=== PATIENT | female | born 1965 | race Caucasian/White ===

== ENCOUNTER 2018-06-19 19:03 | Emergency (ER) | payer BC, SELFPAY ==
[2018-06-19 19:04] VITALS: BP 176/102; PULSE 91; RESP 16; TEMP 36.9; O2SAT 98; BMI 32.8
--- NOTE | 2018-06-19 19:48 | ED.VIS.GEN ---
History of Present Illness Chief Complaint: Headache Informant: Patient Onset: Days - 3 Context: Gradual Onset Timing: Continuous Quality: throbbing Location: left frontal/retroorbital Current Severity: Severe Maximum Severity: Severe Worsened by: light and sound Relieved by: nothing - earlier tried ibuprofen, phenergan, and benadryl po Associated Symptoms: n/v, occ blurry vision Narrative: History of migraines that occur randomly, no obvious trigger for this 1. Same symptoms as other prior migraines, and similar severity that she has had in the past but not able to get this 1 to improve. Insurance stopped covering Imitrex, so she does not have that, when she took it it worked 75% of the time approximately. No recent head injury. Prior similar symptoms: Yes Recent Illness/Hospitalization: No - Past Medical History (1) Migraines Status: Chronic Past Medical History - Allergies and Home Meds Allergies/Adverse Reactions: Allergies bupropion [From Wellbutrin] Allergy (Verified 06/19/18 19:04) I LOSE MY HEARING AND SMELL Tetanus Vaccines and Toxoid [Tetanus Vaccines & Toxoid] Adverse Reaction (Verified 06/19/18 19:04) Vomiting Primary Care Physician: Simone Posey MD [Primary Care Provider] - Surgical History: cholecystectomy, herniorrhaphy, - - spinal surgery for scoliosis, , ovarian cyst removal, repair of hip labrum Lives: Spouse/ Significant Other Smoking Status: Never smoker - Family History Maternal Family History: Reports: Hypertension Paternal Family History: Reports: Heart Disease Review of Systems General: Reports: Malaise. Denies: Chills, Fever, Sweats Eyes: Reports: Blurred Vision - bilaterally. Denies: Diplopia ENT: Denies: Bilateral ear pain, Rhinorrhea, Sore throat Cardiovascular: Denies: Chest pain, Palpitations Respiratory: Denies: Dyspnea, Cough, Dyspnea on exertion Gastrointestinal: Reports: Nausea, Vomiting. Denies: Abdominal pain, Diarrhea, Melena, Hematochezia Genitourinary: Denies: Dysuria, Hematuria, Frequency Musculoskeletal: Reports: Swelling - bilat ankle swelling since hip surg 2 mos ago. Denies: Back pain Skin: Denies: Rash, Wounds Neurological: Reports: Headache. Denies: Weakness, Parasthesia, Numbness Physical Exam Vital Signs/Narrative: Vital Signs Temp Pulse Resp BP Pulse Ox 06/19/18 19:04 98.4 F 91 16 176/102 H 98 Inital Vital Signs reviewed: Yes General: Well nourished, Well developed, - - room dark. pt soft-spoken, nad. Head: Normocephalic, Atraumatic Eyes: Perrl, EOMI, - - photophobic ENT: Moist mucous membranes, No rhinorrhea Neck: Supple, Nontender Cardiovascular: Regular rate, Regular rhythm, No murmurs Back: Nontender, Normal Inspection Extremities: Nontender, No edema Skin: Normal color, No rash Neurological: Alert, Oriented x3, Cranial nerves II-XII grossly intact, Normal Strength, Normal Sensation Psychological: Normal affect Diagnostic/Tx/Re-eval - Medical Decision Making Initially treated with Reglan, Toradol, Benadryl, IV fluids. She felt better, down to 4/10, requesting more medication. Recheck her blood pressure, it is 130. Gave her dihydroergotamine 1 mg, I think her headache has been there for too long to try Imitrex. After that, she feels much better/it is almost resolved. She is comfortable going home. ED Disposition - Plan for ED Patient: Disposition: Home or Assisted Living Chief Complaint: Headache Diagnosis: Migraine headache Instructions: ED Headache Migraine Referrals: Simone Posey MD [Primary Care Provider] - 1-2 Days if not improving
[2018-06-19] MEDS: DiphenhydrAMINE 50 MG/ML Syringe 12.5 MG IV (19:59)
[2018-06-19] MEDS: Ketorolac 30 MG/ML Syringe IV (19:59)
[2018-06-19] MEDS: Metoclopramide 10 MG/2 ML Vial IV (19:59)
[2018-06-19] MEDS: 0.9% Normal Saline 1,000 ML 999 ML IV (19:59)
[2018-06-19 21:03] VITALS: BP 135/78; PULSE 80; RESP 14; O2SAT 98
[2018-06-19] MEDS: Dihydroergotamine 1 MG/ML Ampul IV (21:30)
[2018-06-19 22:34] VITALS: BP 131/71; PULSE 74; RESP 16; O2SAT 98
--- OUTSIDE RECORDS SUMMARY | 2018-08-24 17:07 | XMS RPT_ITS ---
:1965 Author Organization [employer] Address [address] [place] [address] Phone Care Team Providers Name Role Phone Abena BAEZ, Bernabe Guerrero Unavailable Reason for Visit Reason For Visit Description Start Date Postop - 1st visit Preliminary reason for visit data, not yet signed by the author as of right hip post Right hip scope revision on 04/08/2018 Preliminary reason for visit data, not yet signed by the author as of Chief Complaint Chief Complaint Description Start Date right hip post Right hip scope revision on 04/08/2018 Preliminary chief complaint data, not yet signed by the author as of Instructions Instruction Description Start Date CompletedPatient advised to follow-up with Primary Care Physician for BMI management. Plan of Care Type Date Detail Appointment 02:00 PM Bernabe Kraft MD, [address], [place], [address], Appointment 11:15 AM Smita Mendoza PT, [address] [place] [address] [address], [place], [address], Medications Medication Instructions Start Stop Generic Name NDC Provider Date Date ASPIRIN 325 MG 1 tablet daily / ASPIRIN 22034369880 Bernabe R TABS 16 Abena BAEZ PERCOCET 5-325 1-2 tablets as / OXYCODONE-ACET 18710709666 Bernabe R MG TABS needed for pain 16 AMINOPHEN Abena BAEZ NAPROSYN 500 MG Take 1 tabket / NAPROXEN 86908033346 [place] A TABS a day with food 06 Yu PAC TRAZODONE HCL Patient unsure / TRAZODONE HCL 84185421138 Jonna Wheeler TABS of dose. 1 07 TABS FELT CEMENTER-DIRECTOR DIGITAL SALES tablet at bedtime VENLAFAXINE HCL one a day / VENLAFAXINE 34009575192 Bernabe R ER 150 MG 08 HCL Abena BAEZ [id number] OMEPRAZOLE CPDR one a day / OMEPRAZOLE 40040425484 Bernabe R 08 CPDR Abena BAEZ CITRACAL PLUS four tabs a day / MULTIPLE 27894893121 Bernabe R TABS 08 MINERALS-VITAM Abena BAEZ INS TRIAMTERENE-HCT 1 capsule daily / TRIAMTERENE-HC 77585461245 Mara Moya 37.5-25 MG 08 TZ Fouse CAPS PROAIR HFA 108 as needed / ALBUTEROL 65882726728 Mara Zabala (90 Base) 08 SULFATE Fouse MCG/ACT AERS LISINOPRIL 10 1 tablet daily / LISINOPRIL 63653133259 Mara Zabala MG TABS 08 Fouse Conditions or Problems Problem Name Problem Onset Status Entry Provider Comment Standard Annotate Code Date Date Description Tear of right 882246401 Active Bernabe Guerrero Tendon gluteus minimus (SNOMED 03/03 03/03 Laskovski rupture - tendon, CT) hip subsequent encounter 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 Vital Signs Date Name Value Unit Description BMI (Body Mass 34.18 kg/m2 Body Mass Index Index) [Ratio] Preliminary vital sign data, not yet signed by the author as of BP Diastolic 72 mm[Hg] blood pressure, diastolic Preliminary vital sign data, not yet signed by the author as of BP Systolic 128 mm[Hg] blood pressure, systolic Preliminary vital sign data, not yet signed by the author as of Heart Rate 97 /min pulse rate E&M Preliminary vital sign data, not yet signed by the author as of Height 68 [in_us] height E&M Preliminary vital sign data, not yet signed by the author as of Height 173 cm height in centimeters E&M Preliminary vital sign data, not yet signed by the author as of Weight Measured 224 [lb_av] weight E&M Preliminary vital sign data, not yet signed by the author as of Weight Measured 102 kg weight in kilograms E&M Preliminary vital sign data, not yet signed by the author as of Results Date Name Value Unit Range Flag Description Office Visit: Postop - 1st visit, Rm: 6 MEDS REVIEW Done Documentation of current medications (procedure) Preliminary observation data, not yet signed by the author as of Preliminary observation data, not yet signed by the author as of Clinical Summary: HMSPatientID P account number Procedures Code Procedure Name Date Entry Date CPT-89996 Physical Therapy G8730 Pain assessment documented as positive - follow-up documented G8427 Current medications documented 1036F Tobacco screening was negative - non user G8417 BMI documented as above normal parameters - follow-up documented G8783 Blood pressure within normal parameters - no follow-up required [facility]-[id number] Patient Encounter Medications Administered No information available. Immunizations No information available. Advance Directives There may be information available, but it has not been provided by the sender. Assessments There may be information available, but it has not been provided by the sender. Review of Systems There may be information available, but it has not been provided by the sender. Family History There may be information available, but it has not been provided by the sender. History of Past Illness There may be information available, but it has not been provided by the sender. History of Present Illness There may be information available, but it has not been provided by the sender.
--- OUTSIDE RECORDS SUMMARY | 2018-08-24 17:07 | XMS RPT_ITS ---
:1965 Author Organization [employer] Address [address] [place] [address] Phone Care Team Providers Name Role Phone Modesto Ribera Unavailable Reason for Visit Reason For Visit Description Start Date Follow-up by complaint Preliminary reason for visit data, not yet signed by the author as of right hip pain Preliminary reason for visit data, not yet signed by the author as of Chief Complaint Chief Complaint Description Start Date right hip pain Preliminary chief complaint data, not yet signed by the author as of Instructions Instruction Description Start Date Completed Plan of Care Type Date Detail Appointment 02:40 PM Modesto BOB, [address], [address], [place], [address], Appointment 04:15 PM Rebecca Jordan PT, [address], [place], [address], Appointment 04:00 PM Ashley Lopez PT, [address], [place], [address], Appointment 04:00 PM Ashley Lopez PT, [address], [place], [address], Appointment 04:15 PM Rebecca Jordan PT, [address], [place], [address], Appointment 04:15 PM Rebecca Jordan PT, [address], [place], [address], Appointment 12:00 PM Rebecca Jordan PT, [address] [place], [address], Appointment 04:15 PM Rebecca Jordan PT, [address] [place], [address], Pending order MRI right hip with and without contrast Medications Medication Instructions Start Stop Generic Name NDC Provider Date Date MEDROL 4 MG as directed METHYLPREDNISOLONE [id number] Modesto A TBPK [facility] TRAZODONE HCL Patient unsure TRAZODONE HCL TABS 16029744596 Jonna Rizo TABS of dose. Lang tablet at [facility] bedtime VENLAFAXINE one a day VENLAFAXINE HCL 57080142606 Bernabe Guerrero HCL ER 150 MG / Abena [id number]-DID OMEPRAZOLE one a day OMEPRAZOLE CPDR 80919299406 Bernabe Guerrero CPDR / Abena BAEZ CITRACAL PLUS four tabs a MULTIPLE 84054640749 Bernabe Guerrero TABS MINERALS-VITAMINS Abena BAEZ TRIAMTERENE-HC 1 capsule TRIAMTERENE-HCTZ 04409434154 Mara Zabala TZ 37.5-25 MG daily /08 Fouse CAPS PROAIR HFA 108 as needed ALBUTEROL SULFATE 92786960973 Mara Zabala (90 Base) / Fouse MCG/ACT AERS LISINOPRIL 10 1 tablet daily LISINOPRIL 23032887035 Mara Zabala MG TABS Fouse Conditions or Problems Problem Name Problem Onset Status Entry Provider Comment Standard Annotate Code Date Date Description Tear of right 974212048 Active Bernabe Guerrero Tendon gluteus minimus (SNOMED 03/03 03/03 Abena rupture - tendon, CT) hip subsequent encounter 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 Vital Signs Date Name Value Unit Description BMI (Body Mass 34.18 kg/m2 Body Mass Index Index) [Ratio] Preliminary vital sign data, not yet signed by the author as of BP Diastolic 78 mm[Hg] blood pressure, diastolic Preliminary vital sign data, not yet signed by the author as of BP Systolic 119 mm[Hg] blood pressure, systolic Preliminary vital sign data, not yet signed by the author as of Heart Rate 86 /min pulse rate E&M Preliminary vital sign [...] Value Unit Range Flag Description Office Visit: Follow-up by valeria, Rm: 1 MEDS REVIEW Done Documentation of current medications (procedure) Preliminary observation data, not yet signed by the author as of XRAY HX of the right hip xray history on 12/08/2017 at [facility] Preliminary observation data, not yet signed by the author as of Preliminary observation data, not yet signed by the author as of Clinical Summary: HMSPatientID [facility] account number Clinical Summary: HMSPatientID PTOPACCTNUMB [id number] GPT Physical Therapy Outpatient Account Number Procedures Code Procedure Name Date Entry Date G8730 Pain assessment documented as positive - follow-up documented G8427 Current medications documented 1036F Tobacco screening was negative - non user G8419 BMI outside of normal parameters - no follow-up plan/reason not given G8783 Blood pressure within normal parameters - no follow-up required [facility]-[id number] Patient Encounter Medications Administered No information available. [...]
--- OUTSIDE RECORDS SUMMARY | 2018-08-24 17:07 | XMS RPT_ITS ---
:1965 Author Organization [employer] Address [address] [place] [address] Phone Care Team Providers Name Role Phone Abena BAEZ, Bernabe Padilla Reason for Visit Reason For Visit Description Start Date Test Result Preliminary reason for visit data, not yet [...] Plan of Care Type Date Detail Appointment 09:20 AM Bernabe Kraft MD, [address], [address], [place], [address], Appointment 04:15 PM Rebecca Jordan PT, [address], [place], [address], Appointment 04:15 PM Rebecca Jordan PT, [address], [place], [address], Appointment 12:00 PM Rebecca Jordan PT, [address], [place], [address], Appointment 04:15 PM Rebecca Jordan PT, [address], [place], [address], Medications Medication Instructions Start Stop Generic Name [facility] Provider Date Date TRAZODONE HCL Patient unsure / TRAZODONE HCL [id number] Jonna Wheeler TABS of dose. 1 07 TABS FORESTRY AND WILDLIFE MANAGER-DOCUMENT IMAGING SPECIALIST tablet at bedtime VENLAFAXINE HCL one a day / VENLAFAXINE 05334420876 Bernabe R ER 150 MG 08 HCL Abena BAEZ [id number]-INL OMEPRAZOLE CPDR one a day / OMEPRAZOLE 34675147981 Bernabe R 08 CPDR Abena BAEZ CITRACAL PLUS four tabs a day / MULTIPLE 54964718488 Bernabe R TABS 08 MINERALS-VITAM Abena BAEZ INS TRIAMTERENE-HCT 1 capsule daily / TRIAMTERENE-HC 09239989550 Mara Moya 37.5-25 MG 08 TZ Fouse CAPS PROAIR HFA 108 as needed / ALBUTEROL 81559354229 Mara Zabala (90 Base) 08 SULFATE Fouse MCG/ACT AERS LISINOPRIL 10 1 tablet daily / LISINOPRIL 18172162977 Mara Zabala MG TABS 08 Fouse Conditions or Problems Problem Name Problem Onset Status Entry Provider Comment Standard Annotate Code Date Date Description Tear of right 229695247 Active Bernabe Guerrero Tendon gluteus minimus (SNOMED 03/03 03/03 Abena rupture - tendon, CT) hip subsequent encounter Femoroacetabular 365429644 Active Bernabe Guerrero Femoral impingement of (SNOMED 03/03 03/03 Abena acetabular right hip CT) impingement Labral tear of 582031208 Active Bernabe Guerrero Acetabular hip, degenerative (SNOMED 03/03 03/[address]) Allergies, Adverse Reactions, Alerts Allergy Name Reaction Start Date Severity Status Provider Description TETANUS TOXOID Severe Active Mara Zabala ADSORBED Fouse Social History No information available. Vital Signs Date Name Value Unit Description BMI (Body Mass 34.18 kg/m2 Body Mass Index Index) [Ratio] Preliminary vital sign data, not yet signed by the author as of BP Diastolic 81 mm[Hg] blood pressure, diastolic Preliminary vital sign data, not yet signed by the author as of BP Systolic 117 mm[Hg] blood pressure, systolic Preliminary vital sign data, not yet signed by the author as of Heart Rate 90 /min pulse rate E&M Preliminary vital sign [...] Value Unit Range Flag Description Office Visit: Test Result, Rm: 7 MEDS REVIEW Done Documentation of current medications (procedure) Preliminary observation data, not yet signed by the author as of Preliminary observation data, not yet signed by the author as of Clinical Summary: HMSPatientID GOP account number Procedures Code Procedure Name Date Entry Date [id number] [facility] CARE [place] COMBO - HIP (BREG) [id number] CRUTCHES - ADULT (DRIVE MEDICAL) E0118 MOBILEG ULTRA CRUTCHES (MOBILEGS) G8730 Pain assessment documented as positive - follow-up documented G8427 Current medications documented 1036F Tobacco screening was negative - non user G8417 BMI documented as above normal parameters - follow-up documented G8783 Blood pressure within normal parameters - no follow-up required [id number] Patient Encounter Medications Administered No information available. [...]
--- OUTSIDE RECORDS SUMMARY | 2018-08-24 17:07 | XMS RPT_ITS ---
:1965 Author Organization [employer] Address [address] [place] [address] Phone Care Team Providers Name Role Phone Modesto Ribera Reason for Visit Reason For Visit Description Start Date Postop - subsequent visit Preliminary reason for visit data, not [...] Plan of Care Type Date Detail Appointment 10:40 AM [place] BOB, [address] [address], [place], [address], Appointment 11:15 AM Smita Mendoza PT, [address] [place] [address] [place], [address], Appointment 09:45 AM Smita Mendoza PT, [address] [place] [address] [place], [address], Appointment 10:45 AM Smita Mendoza PT, [address] [place] [address] [place], [address], Appointment 10:30 AM Smita Mendoza PT, [address] [place] [address] [place], [address], Appointment 12:40 PM Modesto Rizo Yu BOB, [address] [facility], [address], [place], [address], Medications Medication Instructions Start Stop Generic Name ND Provider Date Date DOXYCYCLINE Take 1 caplet / DOXYCYCLINE 91641159972 Bernabe Guerrero HYCLATE 100 MG by mouth 2 11 HYCLATE Abena BAEZ CAPS times a day for 14 days ASPIRIN 325 MG 1 tablet daily / ASPIRIN 75392951053 Bernabe Guerrero TABS 16 Abena BAEZ PERCOCET 5-325 1-2 tablets as / OXYCODONE-ACET 56559181217 Bernabe R MG TABS needed for pain 16 AMINOPHEN Abena BAEZ TRAZODONE HCL Patient unsure / TRAZODONE HCL 86497301869 Jonna Wheeler TABS of dose. 1 07 TABS ESCROW ASSISTANT-COURT DEPUTY tablet at bedtime VENLAFAXINE HCL one a day / VENLAFAXINE 03241521881 Bernabe Guerrero ER 150 MG 08 HCL Abena BAEZ [id number] OMEPRAZOLE CPDR one a day / OMEPRAZOLE 73245837913 Bernabe R 08 CPDR Abena BAEZ CITRACAL PLUS four tabs a day / MULTIPLE 80009755164 Bernabe Guerrero TABS 08 MINERALS-VITAM Abena BAEZ INS TRIAMTERENE-HCT 1 capsule daily / TRIAMTERENE-HC 08883218616 Mara Zabala Z 37.5-25 MG 08 TZ Fouse CAPS PROAIR HFA 108 as needed / ALBUTEROL 96694074267 Mara Zabala (90 Base) 08 SULFATE Fouse MCG/ACT AERS LISINOPRIL 10 1 tablet daily / LISINOPRIL 40190397021 Mara Zabala MG TABS 08 Fouse Conditions or Problems Problem Name Problem Onset Status Entry Provider Comment Standard Annotate Code Date Date Description Trochanteric M70.62 Active [place] A Trochanteric bursitis left (ICD-10-CM 07/18 07/18 [facility] bursitis, hip ) left hip Tear of right 622378071 Active Bernabe R Tendon gluteus minimus (SNOMED 03/03 03/03 Laskovski rupture - hip tendon, CT) subsequent encounter Femoroacetabular 294265496 Active Bernabe R Femoral impingement of (SNOMED 03/03 03/03 Laskovski acetabular right hip CT) impingement Labral tear of 193927675 Active Bernabe R Acetabular hip, (SNOMED 03/03 03/03 Laskovski labrum tear degenerative CT) Allergies, Adverse Reactions, Alerts Allergy Name Reaction Start Date Severity Status Provider Description TETANUS TOXOID Severe Active Mara Griffith Social History No information available. Vital Signs Date Name Value Unit Description BMI (Body Mass 34.18 kg/m2 Body Mass Index Index) [Ratio] Preliminary vital sign data, not yet signed by the author as of BP Diastolic 87 mm[Hg] blood pressure, diastolic Preliminary vital sign data, not yet signed by the author as of BP Systolic 122 mm[Hg] blood pressure, systolic Preliminary vital sign data, not yet signed by the author as of Heart Rate 75 /min pulse rate E&M Preliminary vital sign [...] Range Flag Description Office Visit: Postop - subsequent visit, Rm: 10 MEDS REVIEW Done Documentation of current medications (procedure) Preliminary observation data, not yet signed by the author as of Preliminary observation data, not yet signed by the author as of Clinical Summary: HMSPatientID [facility] account number Procedures Code Procedure Name Date Entry Date CPT-54288 Physical Therapy G8730 Pain assessment documented as positive - follow-up documented G8427 Current medications documented 1036F Tobacco screening was negative - non user G8417 BMI documented as above normal parameters - follow-up documented G8783 Blood pressure within normal parameters - no follow-up required [facility]-[id number] Patient Encounter Medications Administered No information available. [...]
--- OUTSIDE RECORDS SUMMARY | 2018-08-24 17:07 | XMS RPT_ITS ---
:1965 Author Organization [email or web address] Address [address] [place] [address] Phone Care Team Providers Name Role Phone Jonna Stanley Reason for Visit Reason For Visit Description Start Date New/Est - 1st visit with physician Preliminary reason for visit data, not yet [...] Plan of Care Type Date Detail Appointment 10:00 AM Jonna HALEY, [address] , [address], [place], [address], Appointment 02:40 PM [place] BOB, [address] , [address], [place], [address], Pending order XR PELVIS W HIP 1 VIEW-RT Medications Medication Instructions Start Stop Generic Name NDC Provider Date Date PREDNISONE 20 Take 3 tablets / PREDNISONE [id number] Jonna Wheeler MG TABS by mouth daily 07 [employer]EDIT ADMINISTRATOR for 6 days, then 2 tablets daily for 3 days, then 1 tablet daily for 3 days TRAZODONE HCL Patient unsure / TRAZODONE HCL [id number] Jonna Wheeler TABS of dose. 1 07 TABS [employer] EXPERIENCE TEACHER-CREDIT ADMINISTRATOR tablet at bedtime VENLAFAXINE HCL one a day 2015/07/ VENLAFAXINE [id number] Bernabe R ER 150 MG 08 HCL Abena BAEZ TO20C-COI OMEPRAZOLE CPDR one a day / OMEPRAZOLE [id number] Bernabe R 08 CPDR Abena BAEZ CITRACAL PLUS four tabs a day / MULTIPLE [id number] Bernabe R TABS 08 MINERALS-VITAM Abena BAEZ INS TRIAMTERENE-HCT 1 capsule daily / TRIAMTERENE-HC [id number] Mara Zabala Z 37.5-25 MG 08 TZ Fouse CAPS PROAIR HFA 108 as needed / ALBUTEROL [id number] Mara Zabala (90 Base) 08 SULFATE Fouse MCG/ACT AERS LISINOPRIL 10 1 tablet daily / LISINOPRIL [id number] Mara Zabala MG TABS 08 Fouse Conditions or Problems Problem Name Problem Onset Status Entry Provider Comment Standard Annotate Code Date Date Description Tear of right 483844237 Active Bernabe R Tendon gluteus minimus (SNOMED 03/03 03/03 Abena rupture - tendon, CT) hip subsequent encounter Femoroacetabular 005834025 Active Bernabe Guerrero Femoral impingement of (SNOMED 03/03 03/03 [place] acetabular right hip CT) impingement Labral tear of 736247575 Active Bernabe Guerrero Acetabular hip, degenerative (SNOMED 03/03 03/[address] [facility] [address]) Allergies, Adverse Reactions, Alerts [...] by the author as of BP Systolic 120 mm[Hg] blood pressure, systolic Preliminary vital sign data, not yet signed by the author as of Heart Rate 84 /min pulse rate E&M Preliminary vital sign [...] Value Unit Range Flag Description Office Visit: New/Est - 1st visit with physician, Rm: 1 MEDS REVIEW Done Documentation of current medications (procedure) Preliminary observation data, not yet signed by the author as of Preliminary observation data, not yet signed by the author as of Clinical Summary: HMSPatientID QCG account number Procedures Code Procedure Name Date Entry Date [id number]-58790 Physical Therapy G8730 Pain assessment documented as positive - follow-up documented G8427 Current medications documented 1036F Tobacco screening was negative - non user G8417 BMI documented as above normal parameters - follow-up documented G8783 Blood pressure within normal parameters - no follow-up required [id number] Patient Encounter Medications Administered No information available. [...]
--- OUTSIDE RECORDS SUMMARY | 2018-08-24 17:08 | XMS RPT_ITS ---
:1965 Author Organization OHIP Care Team Providers Name Role Phone PODLOGNICCI GENAO (HEDY) Referring Unavailable NICCI CORDOVA (HEDY) Attending Unavailable CEFERINO POSEY) Referring Unavailable CEFERINO POSEY) Referring Unavailable CEFERINO POSEY) Referring Unavailable CEFERINO POSEY) Attending Unavailable CEFERINO POSEY) Referring Unavailable Simone Posey Primary Care Unavailable KAREN JOSEPH Attending Unavailable PROBLEMS PROBLEMS DATE TYPE CONDITION / CODE ATTENDING STATUS SOURCE 03/18/2018 Active Encounter for other NA Active [facility] preprocedural [facility] examination / Repository Z01.818(ICD-10) 05/11/2015 Active Essential (primary) NA Active [facility] hypertension / [facility] I10(ICD-10) Repository 03/02/2018 Active Pure NA Active [facility] hypercholesterolemi [place] a, unspecified / Repository E78.00(ICD-10) 11/29/2017 Active Encounter for NA Active [facility] screening mammogram [facility] for malignant Repository neoplasm of breast / Z12.31(ICD-10) PROCEDURES PROCEDURES No Procedure Records FoundRESULTS RESULTS EMERGENCY DEPARTMENT Observed: 06/19/2018 Status: F Source: [place] SUMMARY 10:27 PM [facility] REPOSITORY [facility] Medical Records Department [address] [place] [address] Emergency Department Summary 06/19/181947 MR#: [id number] Acct: [id number] Name: TALIA PEARCE Rep #: [id number] : 1965 52 From: Karen Joseph MD PCP: Simone Posey MD Status: REG ER History of Present Illness Chief Complaint: Headache Informant: Patient Onset: Days - 3 Context: Gradual Onset Timing: Continuous Quality: throbbing Location: left frontal/retroorbital Current Severity: Severe Maximum Severity: Severe Worsened by: light and sound Relieved by: nothing - earlier tried ibuprofen, phenergan, and benadryl po Associated Symptoms: n/v, occ blurry vision Narrative: History of migraines that occur randomly, no obvious trigger for this 1. Same symptoms as other prior migraines, and similar severity that she has had in the past but not able to get this 1 to improve. Insurance stopped covering Imitrex, so she does not have that, when she took it it worked 75% of the time approximately. No recent head injury. Prior similar symptoms: Yes Recent Illness/Hospitalization: No - Past Medical History (1) Migraines Status: Chronic Past Medical History - Allergies and Home Meds Allergies/Adverse Reactions: Allergies bupropion [From Wellbutrin] Allergy (Verified 06/19/18 19:04) I LOSE MY HEARING AND SMELL Tetanus Vaccines and Toxoid [Tetanus Vaccines AND Toxoid] Adverse Reaction (Verified 06/19/18 19:04) Vomiting Primary Care Physician: Simone Posey MD [Primary Care Provider] - Surgical History: cholecystectomy, herniorrhaphy, - - spinal surgery for scoliosis, , ovarian cyst removal, repair of hip labrum Lives: Spouse/ Significant Other Smoking Status: Never smoker - Family History Maternal Family History: Reports: Hypertension Paternal Family History: Reports: Heart Disease Review of Systems General: Reports: Malaise. Denies: Chills, Fever, Sweats Eyes: Reports: Blurred Vision - bilaterally. Denies: Diplopia ENT: Denies: Bilateral ear pain, Rhinorrhea, Sore throat Cardiovascular: Denies: Chest pain, Palpitations Respiratory: Denies: Dyspnea, Cough, Dyspnea on exertion Gastrointestinal: Reports: Nausea, Vomiting. Denies: Abdominal pain, Diarrhea, Melena, Hematochezia Genitourinary: Denies: Dysuria, Hematuria, Frequency Musculoskeletal: Reports: Swelling - bilat ankle swelling since hip surg 2 mos ago. Denies: Back pain Skin: Denies: Rash, Wounds Neurological: Reports: Headache. Denies: Weakness, Parasthesia, Numbness Physical Exam Vital Signs/Narrative: Vital Signs 06/19/18 19:04 98.4 F 91 16 176/102 H 98 Inital Vital Signs reviewed: Yes General: Well nourished, Well developed, - - room dark. pt soft-spoken, nad. Head: Normocephalic, Atraumatic Eyes: Perrl, EOMI, - - photophobic ENT: Moist mucous membranes, No rhinorrhea Neck: Supple, Nontender Cardiovascular: Regular rate, Regular rhythm, No murmurs Back: Nontender, Normal Inspection Extremities: Nontender, No edema Skin: Normal color, No rash Neurological: Alert, Oriented x3, Cranial nerves II-XII grossly intact, Normal Strength, Normal Sensation Psychological: Normal affect Diagnostic/Tx/Re-eval - Medical Decision Making Initially treated with Reglan, Toradol, Benadryl, IV fluids. She felt better, down to 4/10, requesting more medication. Recheck her blood pressure, it is 130. Gave her dihydroergotamine 1 mg, I think her headache has been there for too long to try Imitrex. After that, she feels much better/it is almost resolved. She is comfortable going home. ED Disposition - Plan for ED Patient: Disposition: Home or Assisted Living Chief Complaint: Headache Diagnosis: Migraine headache Instructions: ED Headache Migraine Referrals: Simone Posey MD [Primary Care Provider] - 1-2 Days if not improving What to do if you have Problems For any increased pain, shortness of breath, bleeding, nausea or vomiting, chest pain, or any unexpected problems, contact your Primary Care Provider. Call [facility] ([phone]) or report to the closest Emergency Room. Call 911 if necessary. 06/19/18 2227 <Electronically signed by Karen Joseph MD> Date Karen Joseph MD Cosigner Signature (If Indicated): Date CC: Simone Posey MD OBSOLETE Observed: 06/15/2018 Status: COMPLETED Source: [place] 12:00 AM [facility] REPOSITORY Refill ([facility]) TALIA PEARCE ([id number]) 1965 F Date Time Provider Department 06/15/18 CEFERINO POSEY) [facility] During your visit today, we recorded the following information about you: Santiago Faust Psr 06/15/2018 10:58 AM Signed Patient has been identified by name and date of : Yes Last office visit in this department: 03/18/2018 RX INSTRUCTIONS: Patient aware RX will be sent to pharmacy. No need to notify patient. Patient phones requesting refills as follows: Pending Prescriptions Disp Refills TRAZODONE 50 MG TABLET 30 tablet 2 Sig: Take 1 tablet by mouth daily at bedtime. SIERRA: No TRIAMTERENE 37.5 MG-HYDROCHLOROTHIAZIDE 25 MG CAPSULE 90 capsule 1 Sig: Take 1 capsule by mouth once daily. SIERRA: No Please review and advise. Santiago Faust Psr Fabiana Wheeler LPN 06/17/2018 2:29 PM Signed Last RX: 03/04/18. Fabiana Wheeler LPN Allergies As of Date: 06/15/2018 Noted Allergy Reaction TETANUS VACCINES AND TOXOID 01/08/2006 8 - GI Upset WELLBUTRIN (BUPROPION HCL) 10/12/2014 14 - Other: See Comments Comments: Hearing impaired. Date Reviewed: 03/18/2018 Reviewed by: Kyra Odom (Enio) ENIO Martinez - Fully Assessed Reason for Visit: Refill Request [94] Visit Diagnosis:Essential hypertension [I10] Order(s):traZODone (DESYREL) 50 mg tabletTake 1 tablet by mouth daily at bedtime.Disp: 30 tabletRfl: 2 triamterene-hydrochlorothiazide (DYAZIDE) 37.5-25 mg per capsuleTake 1 capsule by mouth once daily.Disp: 90 capsuleRfl: 1 Prescriptions as of 06/15/2018 Sig: TRAZODONE 50 MG TABLET Take 1 tablet by mouth daily * TRIAMTERENE 37.5 MG-HYDROCHLO* Take 1 capsule by mouth once * LISINOPRIL 10 MG TABLET TAKE 1 TABLET BY MOUTH ONCE D* VENLAFAXINE ER 150 MG CAPSULE* Take 1 capsule by mouth once * VENLAFAXINE ER 75 MG CAPSULE,* Take 1 capsule by mouth once * ALBUTEROL SULFATE HFA 90 MCG/* Inhale 2 Puffs as instructed * ONDANSETRON HCL 8 MG TABLET Take 1 tablet by mouth every * GUAIFENESIN ER 600 MG TABLET,* Take 2 tablets by mouth twice* CPAP Use 11 cm in the nose daily a* OMEPRAZOLE MAGNESIUM 20 MG TA* Take 20 mg by mouth once bayron* * CITRUCEL 500 MG TABLET Take two(2) tablets once to t* Problem List As Of Date 06/15/2018 Noted Resolved Backache, unspecified [M54.9] INVALID FOR*11/21/2017 More... Routine gynecological examination [Z01.419] INVALID FOR*11/21/2017 Class: Chronic More... Adjustment Disorder with Anxiety [F43.22] INVALID FOR* Insomnia, Unspecified [G47.00] INVALID FOR* Edema [R60.9] INVALID FOR* More... Tension Headache [G44.209] INVALID FOR* Vitamin D Deficiency [E55.9] INVALID FOR* Hemorrhagic ovarian cyst [N83.209] INVALID FOR* Abdominal pain, left lower quadrant [R10.32] INVALID FOR*11/21/2017 Suprapubic pain, acute [R10.2] INVALID FOR* Abdominal pain, generalized [R10.84] INVALID FOR*11/21/2017 Obstructive sleep apnea treated with continuous*INVALID FOR* Rhinitis [J31.0] INVALID FOR*11/21/2017 Essential hypertension [I10] INVALID FOR* Myalgia and myositis, unspecified [KUY0750] INVALID FOR* Diverticulitis of large intestine without perfo*INVALID FOR* Hypertension [I10] 11/21/2017 Asthma [J45.909] 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 TRIAMTERENE 37.5 MG-HYDROCHLOROTHIAZ* 90 c* 1 06/17/2018 Route: ORAL Sig: Take 1 capsule by mouth once daily. Medications Discontinued During This Encounter traZODone (DESYREL) 50 mg tablet 30 t* 2 03/04/2018 06/17/2018 Cmt: Please consider 90 day supplies to promote better adherence Sig: TAKE 1 TABLET BY MOUTH AT BEDTIME Disc: Reason for discontinue is not on file. triamterene-hydrochlorothiazide (DYA* 90 c* 1 11/21/2017 06/17/2018 Route: ORAL Sig: Take 1 capsule by mouth once daily. Disc: Reason for discontinue is not on file. Encounter Status:Closed by NICCI CORDOVA CNP on 06/17/18 CNPN Observed: 03/25/2018 Status: COMPLETED Source: [place] 12:00 AM [facility] REPOSITORY [facility] TALIA PEARCE ([id number]) 1965 F Date Time Provider Department 03/25/18 CEFERINO POSEY) [facility] During your visit today, we recorded the following information about you: Halie Quintana LPN 03/25/2018 2:56 PM Signed Patient is currently at office for preop. States that they received preop clearance form and HANDP but they need a copy of the HANDP to be physically signed by TECHNICIAN PRE[employer]ATIVE [employer]ICINE. Asking for this to be faxed to her at [phone], Attn: Amy. Nicci Cordova APRN.HEDY 03/25/2018 3:43 PM Signed Signed copy of HANDP placed on Kyra's desk for faxing. Kyra please fax to [phone] Attn: Rossi Hall, Nicci Podlogar, LEAD MINER.SHERIFF SERGEANT Kyra Martinez LPN, LPN 03/25/2018 3:48 PM Signed Information faxed to number provided. Kyra Martinez LPN, LPN 03/26/2018 8:44 AM Signed Fax keeps coming back. Called [facility] to get information Kyra Martinez LPN, LPN 03/26/2018 9:19 AM Signed Refaxed information to the fax number on the preop sheet. Allergies As of Date: 03/25/2018 Noted Allergy Reaction TETANUS VACCINES AND TOXOID 01/08/2006 8 - GI Upset WELLBUTRIN (BUPROPION HCL) 10/12/2014 14 - Other: See Comments Comments: Hearing impaired. Date Reviewed: 03/18/2018 Reviewed by: Kyra Odom (Enio) ENIO Martinez - Fully Assessed Reason for Visit: Pre-Op Exam [87] Prescriptions as of 03/25/2018 Sig: TRAZODONE 50 MG TABLET TAKE 1 TABLET BY MOUTH AT BED* LISINOPRIL 10 MG TABLET TAKE 1 TABLET BY MOUTH ONCE D* VENLAFAXINE ER 150 MG CAPSULE* Take 1 capsule by mouth once * VENLAFAXINE ER 75 MG CAPSULE,* Take 1 capsule by mouth once * TRIAMTERENE 37.5 MG-HYDROCHLO* Take 1 capsule by mouth once * ALBUTEROL SULFATE HFA 90 MCG/* Inhale 2 Puffs as instructed * ONDANSETRON HCL 8 MG TABLET Take 1 tablet by mouth every * GUAIFENESIN ER 600 MG TABLET,* Take 2 tablets by mouth twice* CPAP Use 11 cm in the nose daily a* OMEPRAZOLE MAGNESIUM 20 MG TA* Take 20 mg by mouth once bayron* * CITRUCEL 500 MG TABLET Take two(2) tablets once to t* Problem List As Of Date 03/25/2018 Noted Resolved Backache, unspecified [M54.9] INVALID FOR*11/21/2017 More... Routine gynecological examination [Z01.419] INVALID FOR*11/21/2017 Class: Chronic More... Adjustment Disorder with Anxiety [F43.22] INVALID FOR* Insomnia, Unspecified [G47.00] INVALID FOR* Edema [R60.9] INVALID FOR* More... Tension Headache [G44.209] INVALID FOR* Vitamin D Deficiency [E55.9] INVALID FOR* Hemorrhagic ovarian cyst [N83.209] INVALID FOR* Abdominal pain, left lower quadrant [R10.32] INVALID FOR*11/21/2017 Suprapubic pain, acute [R10.2] INVALID FOR* Abdominal pain, generalized [R10.84] INVALID FOR*11/21/2017 Obstructive sleep apnea treated with continuous*INVALID FOR* Rhinitis [J31.0] INVALID FOR*11/21/2017 Essential hypertension [I10] INVALID FOR* Myalgia and myositis, unspecified [QDC1125] INVALID FOR* Diverticulitis of large intestine without perfo*INVALID FOR* Hypertension [I10] 11/21/2017 Asthma [J45.909] 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] Hyperlipidemia [E78.5] TAMICA (obstructive sleep apnea) [G47.33] 11/21/2017 GERD (gastroesophageal reflux disease) [K21.9] Encounter Status:Closed by KYRA MARTINEZ LPN on 03/25/18 PROGRESS Observed: 03/18/2018 Status: COMPLETED Source: [place] 11:20 AM [facility] REPOSITORY O ID: [id number] Author: Nicci ([employer]) Podlogar Service: (none) Author Type: Nurse Practitioner Type: Progress Notes Filed: 03/18/2018 3:19 PM Note Text: 03/18/2018 Patient presents with: Pre-Op Exam CC: Patient presents with: Pre-Op Exam HPI Talia Pearce is a 52 year old female who presents today for pre-op evaluation. Surgical Procedure: repair of muscles in right hip Date of Procedure: 04/08/2018 METS: Walk indoors, such as around the house (1.75 METs): YES Do light work around the house, such as dusting or washing dishes (2.70 METs): YES Take care of self; that is eating, dressing, bathing, using the toilet (2.75 METs): YES Walk a block or two on level ground (2.75 METs): YES Do moderate work around the house such as vacuuming, sweeping floors, or carrying in groceries (3.50 METs): YES Do yardwork, such as raking leaves, weeding,or pushing a power mower (4.50 METs): YES Climb a flight of stairs or walk up a hill (5.50 METs): YES Participate in moderate recreational activities, such as golf, bowling, dancing, doubles tennis, or throwing a baseball or football (6.00 METs): NO Participate in strenuous sport, such as swimming, singles tennis, football, basketball, or skiing (7.50 METs): NO Do heavy work around the house, such as scrubbing floors, lifting or moving heavy furniture (8.00 METs): NO Run a short distance (8.00 METs): YES Total: 31.45 Patient denies any chest pain or undue shortness of breath with the above physical activity. 1. Diabetes: None 2. Hypertension requiring medication: Yes 3. Congestive Heart Failure: No 4. Current Smoker within 1 Year: No 5. History of COPD: No 6. History of TAMICA: Yes 7. Dialysis: No REVIEW OF SYSTEMS General: no fevers, no chills, no night sweats, no recurrent infections, no change in appetite, no change in energy and no significant changes in weight Neck: no lumps, no goiter, no pain and no swelling Respiratory: no cough, no wheezing, no shortness of breath, no hemoptysis Cardiovascular: no chest pain, no chest pressure, no palpitations and no swelling GI: No nausea, vomiting, or diarrhea and No heartburn or reflux symptoms PAST MEDICAL HISTORY Diagnosis Date - Anxiety - Asthma - Chronic depressive personality disorder - Diverticulitis 11/24/2015, 08/09/2016 - GERD (gastroesophageal reflux disease) - Hemorrhage of gastrointestinal tract, unspecified - Hemorrhage of rectum and anus - Hemorrhagic ovarian cyst 12/2011 - Hyperlipidemia - Hypertension - Insomnia - TAMICA (obstructive sleep apnea) - Vitamin D deficiency PAST SURGICAL HISTORY Procedure Laterality Date - APPENDECTOMY - DELIVERY ONLY , low cervical [facility] Repeat 11/2025 - LAP-ABD DX-W/WO SPECMN-SEP PRO 11/28/2012 dx lap with excision of left pelvic mass - PAST SURGICAL HISTORY OF 2007 abdominoplasty ([place]), at time of surgery - REMOVAL GALLBLADDER Cholecystectomy - SIGMOIDOSCOPY FLEX DIAG 07/12/2007 Sigmoidoscopy - SPINAL FUSION,ANT,EA ADNL LEVEL - TOTAL ABDOM HYSTERECTOMY 2007 Dr. Moore ALLERGIES Tetanus Vaccines And Toxoid; Wellbutrin [Bupropion Hcl] MEDICATIONS traZODone (DESYREL) 50 mg tablet TAKE 1 TABLET BY MOUTH AT BEDTIME lisinopril (ZESTRIL, PRINIVIL) 10 mg tablet TAKE 1 TABLET BY MOUTH ONCE DAILY venlafaxine ER (EFFEXOR XR) 150 mg 24 hr capsule Take 1 capsule by mouth once daily. venlafaxine ER (EFFEXOR XR) 75 mg 24 hr capsule Take 1 capsule by mouth once daily. To take with 150 mg tablet for total dose of 225 mg daily. triamterene-hydrochlorothiazide (DYAZIDE) 37.5-25 mg per capsule Take 1 capsule by mouth once daily. albuterol HFA (PROVENTIL HFA, VENTOLIN HFA) 90 mcg/actuation inhaler Inhale 2 Puffs as instructed every 4 hours as needed. 2 PUFFS Q4H PRN WHEEZE/COUGH ondansetron (ZOFRAN, HYDROCHLORIDE,) 8 mg tablet Take 1 tablet by mouth every 8 hours as needed. CPAP Use 11 cm in the nose daily at bedtime. With humidification. CPAP Device and supplies. Mask of choice. Omeprazole Magnesium (PRILOSEC OTC) 20 mg tablet Take 20 mg by mouth once daily. methylcellulose(CITRUCEL 500 MG TAB) Take two(2) tablets once to three times daily as needed. guaiFENesin (MUCINEX) 600 mg 12 hr tablet Take 2 tablets by mouth twice daily. FAMILY HISTORY Problem Relation Age of Onset - Heart Mother - Heart Father heart attack x 3 - Cancer Paternal Grandfather lung cancer - Cancer Maternal Aunt lymphoma - Cancer Maternal Aunt lymphoma - other (Cystic Fibrosis) Daughter Social History Substance Use Topics - Smoking status: Never Smoker - Smokeless tobacco: Never Used - Alcohol use No Comment: only occasionally PHYSICAL EXAM BP 130/72 (BP Site: Left Arm, BP Position: Sitting, BP Cuff Size: Large Adult) Pulse 68 Resp 16 Ht 170.2 cm (5' 7) Wt 103.9 kg (229 lb 1.9 oz) LMP 05/04/2008 BMI 35.89 kg/m? General Appearance: well appearing, in no acute distress, well-hydrated, well nourished, alert, overweight Neck: Thyroid normal size and symmetric without palpable nodules, No adenopathy Oropharynx: lips normal without lesions, buccal mucosa normal, gums healthy, teeth intact, non-carious, palate normal, tongue midline and normal, soft palate, uvula, and tonsils normal Lungs: Lungs clear to auscultation. No wheezing, rhonchi, rales Heart: RRR without murmur, gallop, or rubs. No ectopy Abdomen: soft, nondistended, nontender Extremities: No deformities, edema, skin discoloration, clubbing or cyanosis. Good capillary refill. Diagnoses/Plan 1. Pre-operative evaluation - recent CBC and CMP completed Patient has the following medical conditions which may affect calos-operative course HTN - Well controlled TAMICA - Advised to bring CPAP/BIPAP machine to hospital BLACKBURN risk: Patient is scheduled for a intermediate-risk procedure. EKG Interpretation: RHYTHM: Normal sinus rhythm at 81 beats per minute, possible left atrial enlargment AXIS: Normal axis INTERVALS: Normal NV interval ST SEGMENT: Nonspecific ST-T changes QT INTERVAL: Prolonged at 462 COMPARED WITH PRIOR: unchanged Risk of 0.4%% calculated using the NSQIP surgical risk calculator The patient is cleared for surgery Nicci Cordova APRN.SHERIFF SERGEANT Prescription instructions reviewed with patient as applicable. Patient advised if symptoms do not improve or if symptoms worsen sooner, to contact their primary care physician. Potential red flag symptoms discussed with the patient. Reviewed appropriate action plan to take if red flag symptoms occur. Patient agreeable to treatment plan. ECG COMPLETE W Observed: 03/18/2018 Status: F Source: [place] INTERPRETATION 11:[address] [facility] [place] REPOSITORY NAME : TALIA PEARCE PID : [id number] : 1965 Gender : Female Race : ORD : [id number] Procedure Date : Mar 18 2018 11:09:11 Edit Date : Mar 19 2018 08:03:43 Diagnosis:NORMAL SINUS RHYTHM POSSIBLE LEFT ATRIAL ENLARGEMENT NONSPECIFIC ST AND T WAVE ABNORMALITY PROLONGED QT INTERVAL OR TU FUSION, CONSIDER HYPOKALEMIA ABNORMAL ECG Confirmed by HERBERT SHANNON D.O. ([id number]) on 03/19/2018 8:02:39 AM Ventricular Rate : 81 BPM Atrial Rate : 81 BPM P-R Interval : 146 ms QRS Duration : 96 ms Q-T Interval : 398 ms QTC Calculation(Bezet) : 462 ms P [place] : 54 degrees R [place] : 43 degrees T [place] : 42 degrees Test Reason : Location : 185 : [facility] Overread By : HERBERT SHANNON D.O. Edited By : HERBERT SHANNON D.O. Referred By : NICCI CRODOVA Acquired by : TOVA MENDEZ Observed: 03/18/2018 Status: COMPLETED Source: [place] 11:00 AM [facility] REPOSITORY [facility] TALIA PEARCE ([id number]) 1965 F Date Time Provider Department 03/18/18 11:00 AM NICCI CORDOVA ([facility]) [facility] During your visit today, we recorded the following information about you: Pulse Respiration Blood pressure Weight 68/minute 16/minute 130/72 103.9 kg Height 1.702 m Nicci Cordova APRN.CNP 03/18/2018 3:19 PM Signed 03/18/2018 Patient presents with: Pre-Op Exam CC: Patient presents with: Pre-Op Exam HPI Talia Pearce is a 52 year old female who presents today for pre-op evaluation. Surgical Procedure: repair of muscles in right hip Date of Procedure: 04/08/2018 METS: Walk indoors, such as around the house (1.75 METs): YES Do light work around the house, such as dusting or washing dishes (2.70 METs): YES Take care of self; that is eating, dressing, bathing, using the toilet (2.75 METs): YES Walk a block or two on level ground (2.75 METs): YES Do moderate work around the house such as vacuuming, sweeping floors, or carrying in groceries (3.50 METs): YES Do yardwork, such as raking leaves, weeding,or pushing a power mower (4.50 METs): YES Climb a flight of stairs or walk up a hill (5.50 METs): YES Participate in moderate recreational activities, such as golf, bowling, dancing, doubles tennis, or throwing a baseball or football (6.00 METs): NO Participate in strenuous sport, such as swimming, singles tennis, football, basketball, or skiing (7.50 METs): NO Do heavy work around the house, such as scrubbing floors, lifting or moving heavy furniture (8.00 METs): NO Run a short distance (8.00 METs): YES Total: 31.45 Patient denies any chest pain or undue shortness of breath with the above physical activity. 1. Diabetes: None 2. Hypertension requiring medication: Yes 3. Congestive Heart Failure: No 4. Current Smoker within 1 Year: No 5. History of COPD: No 6. History of TAMICA: Yes 7. Dialysis: No REVIEW OF SYSTEMS General: no fevers, no chills, no night sweats, no recurrent infections, no change in appetite, no change in energy and no significant changes in weight Neck: no lumps, no goiter, no pain and no swelling Respiratory: no cough, no wheezing, no shortness of breath, no hemoptysis Cardiovascular: no chest pain, no chest pressure, no palpitations and no swelling GI: No nausea, vomiting, or diarrhea and No heartburn or reflux symptoms PAST MEDICAL HISTORY Diagnosis Date - Anxiety - Asthma - Chronic depressive personality disorder - Diverticulitis 11/24/2015, 08/09/2016 - GERD (gastroesophageal reflux disease) - Hemorrhage of gastrointestinal tract, unspecified - Hemorrhage of rectum and anus - Hemorrhagic ovarian cyst 12/2011 - Hyperlipidemia - Hypertension - Insomnia - TAMICA (obstructive sleep apnea) - Vitamin D deficiency PAST SURGICAL HISTORY Procedure Laterality Date - APPENDECTOMY - DELIVERY ONLY , low cervical - [facility] Repeat 11/2025 - LAP-ABD DX-W/WO SPECMN-SEP PRO 11/28/2012 dx lap with excision of left pelvic mass - PAST SURGICAL HISTORY OF 2007 abdominoplasty ([place]), at time of surgery - REMOVAL GALLBLADDER Cholecystectomy - SIGMOIDOSCOPY FLEX DIAG 07/12/2007 Sigmoidoscopy - SPINAL FUSION,ANT,EA ADNL LEVEL - TOTAL ABDOM HYSTERECTOMY 2007 Dr. Moore ALLERGIES Tetanus Vaccines And Toxoid; Wellbutrin [Bupropion Hcl] MEDICATIONS traZODone (DESYREL) 50 mg tablet TAKE 1 TABLET BY MOUTH AT BEDTIME lisinopril (ZESTRIL, PRINIVIL) 10 mg tablet TAKE 1 TABLET BY MOUTH ONCE DAILY venlafaxine ER (EFFEXOR XR) 150 mg 24 hr capsule Take 1 capsule by mouth once daily. venlafaxine ER (EFFEXOR XR) 75 mg 24 hr capsule Take 1 capsule by mouth once daily. To take with 150 mg tablet for total dose of 225 mg daily. triamterene-hydrochlorothiazide (DYAZIDE) 37.5-25 mg per capsule Take 1 capsule by mouth once daily. albuterol HFA (PROVENTIL HFA, VENTOLIN HFA) 90 mcg/actuation inhaler Inhale 2 Puffs as instructed every 4 hours as needed. 2 PUFFS Q4H PRN WHEEZE/COUGH ondansetron (ZOFRAN, HYDROCHLORIDE,) 8 mg tablet Take 1 tablet by mouth every 8 hours as needed. CPAP Use 11 cm in the nose daily at bedtime. With humidification. CPAP Device and supplies. Mask of choice. Omeprazole Magnesium (PRILOSEC OTC) 20 mg tablet Take 20 mg by mouth once daily. methylcellulose(CITRUCEL 500 MG TAB) Take two(2) tablets once to three times daily as needed. guaiFENesin (MUCINEX) 600 mg 12 hr tablet Take 2 tablets by mouth twice daily. FAMILY HISTORY Problem Relation Age of Onset - Heart Mother - Heart Father heart attack x 3 - Cancer Paternal Grandfather lung cancer - Cancer Maternal Aunt lymphoma - Cancer Maternal Aunt lymphoma - other (Cystic Fibrosis) Daughter Social History Substance Use Topics - Smoking status: Never Smoker - Smokeless tobacco: Never Used - Alcohol use No Comment: only occasionally PHYSICAL EXAM BP 130/72 (BP Site: Left Arm, BP Position: Sitting, BP Cuff Size: Large Adult) Pulse 68 Resp 16 Ht 170.2 cm (5' 7) Wt 103.9 kg (229 lb 1.9 oz) LMP 05/04/2008 BMI 35.89 kg/m? General Appearance: well appearing, in no acute distress, well-hydrated, well nourished, alert, overweight Neck: Thyroid normal size and symmetric without palpable nodules, No adenopathy Oropharynx: lips normal without lesions, buccal mucosa normal, gums healthy, teeth intact, non-carious, palate normal, tongue midline and normal, soft palate, uvula, and tonsils normal Lungs: Lungs clear to auscultation. No wheezing, rhonchi, rales Heart: RRR without murmur, gallop, or rubs. No ectopy Abdomen: soft, nondistended, nontender Extremities: No deformities, edema, skin discoloration, clubbing or cyanosis. Good capillary refill. Diagnoses/Plan 1. Pre-operative evaluation - recent CBC and CMP completed Patient has the following medical conditions which may affect calos-operative course HTN - Well controlled TAMICA - Advised to bring CPAP/BIPAP machine to hospital [place]ACKBURN risk: Patient is scheduled for a intermediate-risk procedure. EKG Interpretation: RHYTHM: Normal sinus rhythm at 81 beats per minute, possible left atrial enlargment AXIS: Normal axis INTERVALS: Normal NV interval ST SEGMENT: Nonspecific ST-T changes QT INTERVAL: Prolonged at 462 COMPARED WITH PRIOR: unchanged Risk of 0.4%% calculated using the NSQIP surgical risk calculator The patient is cleared for surgery Nicci Cordova APRN.SHERIFF SERGEANT Prescription instructions reviewed with patient as applicable. Patient advised if symptoms do not improve or if symptoms worsen sooner, to contact their primary care physician. Potential red flag symptoms discussed with the patient. Reviewed appropriate action plan to take if red flag symptoms occur. Patient agreeable to treatment plan. Referring Provider: CEFERINO POSEY) [[id number]] Allergies As of Date: 03/18/2018 Noted Allergy Reaction TETANUS VACCINES AND TOXOID 01/08/2006 8 - GI Upset WELLBUTRIN (BUPROPION HCL) 10/12/2014 14 - Other: See Comments Comments: Hearing impaired. Date Reviewed: 03/18/2018 Reviewed by: Kyra Odom (Enio) ENIO Martinez - Fully Assessed Reason for Visit: Pre-Op Exam [87] Primary Visit Diagnosis:Preop examination [Z01.818] Order(s):ECG COMPLETE W INTERPRETATION [ECG01] Order #: [id number] FUTURE Prescriptions as of 03/18/2018 Sig: TRAZODONE 50 MG TABLET TAKE 1 TABLET BY MOUTH AT BED* LISINOPRIL 10 MG TABLET TAKE 1 TABLET BY MOUTH ONCE D* VENLAFAXINE ER 150 MG CAPSULE* Take 1 capsule by mouth once * VENLAFAXINE ER 75 MG CAPSULE,* Take 1 capsule by mouth once * TRIAMTERENE 37.5 MG-HYDROCHLO* Take 1 capsule by mouth once * ALBUTEROL SULFATE HFA 90 MCG/* Inhale 2 Puffs as instructed * ONDANSETRON HCL 8 MG TABLET Take 1 tablet by mouth every * CPAP Use 11 cm in the nose daily a* OMEPRAZOLE MAGNESIUM 20 MG TA* Take 20 mg by mouth once bayron* * CITRUCEL 500 MG TABLET Take two(2) tablets once to t* GUAIFENESIN ER 600 MG TABLET,* Take 2 tablets by mouth twice* Problem List As Of Date 03/18/2018 Noted Resolved Backache, unspecified [M54.9] INVALID FOR*11/21/2017 More... Routine gynecological examination [Z01.419] INVALID FOR*11/21/2017 Class: Chronic More... Adjustment Disorder with Anxiety [F43.22] INVALID FOR* Insomnia, Unspecified [G47.00] INVALID FOR* Edema [R60.9] INVALID FOR* More... Tension Headache [G44.209] INVALID FOR* Vitamin D Deficiency [E55.9] INVALID FOR* Hemorrhagic ovarian cyst [N83.209] INVALID FOR* Abdominal pain, left lower quadrant [R10.32] INVALID FOR*11/21/2017 Suprapubic pain, acute [R10.2] INVALID FOR* Abdominal pain, generalized [R10.84] INVALID FOR*11/21/2017 Obstructive sleep apnea treated with continuous*INVALID FOR* Rhinitis [J31.0] INVALID FOR*11/21/2017 Essential hypertension [I10] INVALID FOR* Myalgia and myositis, unspecified [KAR4405] INVALID FOR* Diverticulitis of large intestine without perfo*INVALID FOR* Hypertension [I10] 11/21/2017 Asthma [J45.909] 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] Hyperlipidemia [E78.5] TAMICA (obstructive sleep apnea) [G47.33] 11/21/2017 GERD (gastroesophageal reflux disease) [K21.9] Follow-up and Disposition History Recorded Encounter Status:Closed by PODLOGARNICCI CNP on 03/18/18 CBC Collected: 03/02/2018 Status: F Source: [place] 9:30 AM [facility] REPOSITORY TYPE CODE TESTS RESULT OUT OF REFERENCE UNITS RANGE LAB WBC 3.70-11.00 k/uL WBC 5.44 LAB RBC 3.90-5.20 m/uL Low RBC 3.89 LAB HGB 11.5-15.5 g/dL Hemoglobin 12.7 LAB HCT 36.0-46.0 % Hematocrit 38.8 LAB MCV 80.0-100.0 fL MCV 99.7 LAB MCH 26.0-34.0 pG MCH 32.6 LAB MCHC 30.5-36.0 g/dL MCHC 32.7 LAB RDWCV 11.5-15.0 % RDW-CV 13.1 LAB PLTCT 150-400 k/uL Platelet Count 265 LAB MPV 9.0-12.7 fL MPV 11.8 LAB ABSNUC <0.01 k/uL Absolute nRBC <0.01 Performed By: #### CBC, CMP, LIPB #### [facility] [address] [id number] COMP METABOLIC PANEL Collected: 03/02/2018 Status: F Source: [place] 9:30 AM [facility] REPOSITORY TYPE CODE TESTS RESULT OUT OF REFERENCE UNITS RANGE LAB TP 6.3-8.0 g/dL Protein, Total 7.2 LAB ALB 3.9-4.9 g/dL Albumin 4.1 LAB CA 8.5-10.2 mg/dL Calcium, Total 9.1 LAB TBIL 0.2-1.3 mg/dL Bilirubin, Total 0.3 LAB ALKP 34-123 U/L Alkaline Phosphatase 48 LAB AST 13-35 U/L AST 32 LAB GLU 74-99 mg/dL Glucose 94 Result Comment: The [place] Diabetes Association (ADA) provides guidance for cutoff values for fasting glucose and random glucose. The ADA defines fasting as no caloric intake for at least 8 hours. Fas ting plasma glucose results between 100 to 125 mg/dL indicate increased risk for diabetes (prediabetes). Fasting plasma glucose results greater than or equal to 126 mg/dL meet the criteria for diagnosis of diabetes. In the absence of unequivocal hyperglycemia, results should be confirmed by repeat testing. In a patient with classic symptoms of hyperglycemia or hyperglycemic crisis, random plasma glucose results greater than or equal to 200 mg/dL meet the criteria for diagnosis of diabetes. Reference: Standards of Medical Care in Diabetes 2016, [place] Diabetes Association. Diabetes Care. 2016.39(Suppl 1). LAB BUN 7-21 mg/dL BUN 15 LAB CRET 0.58-0.96 mg/dL Creatinine 0.93 LAB NA 136-144 mmol/L Sodium 139 LAB K 3.7-5.1 mmol/L Potassium 4.3 LAB CL 97-105 mmol/L Chloride 101 LAB CO2 22-30 mmol/L CO2 24 LAB AGAP 9-18 mmol/L Anion Gap 14 LAB ALT 7-38 U/L ALT High 42 LAB GFRAA eGFR- Amer. >60 LAB GFRNAA . eGFR-All Other Races >60 Result Comment: eGFR (Estimated GFR) Units of measure: mL/min/1.73 meters squared eGFR is derived from the reexpressed MDRD Study equation using the following parameters: serum creatinine, age, gender and race. The creatinine assay has been calibrated to be traceable to IDMS. An eGFR <60 mL/min/1.73m2 for >3 months is consistent with chronic kidney disease. Refer to KDOQI guidelines for clinical interpretation. In patients with unstable renal function, e.g. those with acute kidney injury, the eGFR may not accurately reflect actual GFR. Performed By: #### CBC, CMP, LIPB #### [facility] [address] [id number] LIPID PANEL, BASIC Collected: 03/02/2018 Status: F Source: [place] 9:[address] [facility] REPOSITORY TYPE CODE TESTS RESULT OUT OF REFERENCE UNITS RANGE LAB CHOL <200 mg/dL Cholesterol 186 Result Comment: <200 mg/dL, Desirable 200-239 mg/dL, Borderline high >239 mg/dL, High LAB TRIGLY <150 mg/dL Triglyceride 133 Result Comment: <150 mg/dL, Normal 150-199 mg/dL, Borderline high 200-499 mg/dL, High >499 mg/dL, Very high LAB HDL >39 mg/dL HDL-Cholesterol 43 Result Comment: 40-59 mg/dL, Acceptable >59 mg/dL, High: Negative risk factor for coronary heart disease <40 mg/dL, Low: Positive risk factor for coronary heart disease LAB LDL <100 mg/dL LDL-Cholesterol High 116 Result Comment: <100 mg/dL, Optimal 100-129 mg/dL, Near optimal/above optimal 130-159 mg/dL, Borderline high 160-189 mg/dL, High >189 mg/dL, Very high Secondary prevention optimal LDL Cholesterol levels are recommended to be < 70 mg/dL LAB NONHDL <130 mg/dL Non HDL High Cholesterol 143 Result Comment: <130 mg/dL, Optimal 130-159 mg/dL, Near optimal/above optimal 160-189 mg/dL, Borderline high 190-219 mg/dL, High >219 mg/dL, Very high Secondary prevention optimal non HDL Cholesterol levels are recommended to be < 100 mg/dL LAB FT hrs Fasting Time 10 LAB VLDL <30 mg/dL VLDL Cholesterol 27 LAB TCHDL <5.10 TC:HDL Ratio 4.33 LAB LDLHDL <2.54 High LDL:HDL Ratio 2.70 Result Comment: Reference: 1. National Cholesterol Education Program ATP III Guideline At-A-Glance Quick Desk Reference: National Heart, Lung, and Blood [place]. National Institutes of Health. 2001: NIH Publication No. 01-3305. 2. An International Atherosclerosis Society position paper: global recommendations for the management of dyslipidemia: executive summary, Atherosclerosis. 2014: 232(2):410-413. Performed By: #### CBC, CMP, LIPB #### [facility] [address] [id number] CNCO Observed: 11/29/2017 Status: COMPLETED Source: [place] 5:[address] [facility] [place] REPOSITORY HNO ID: [id number] Author: Mammography Coordinator Service: (none) Author Type: Physician Type: Letter Filed: 12/03/2017 11:32 PM Note Text: November 29, 2017 PID: [id number] Talia Pearce [address] [place] [address] Dear Ms. Pearce, We are pleased to inform you that the results of your recent breast imaging exam on 11/29/2017 are normal. Early detection of cancer is very important. We also understand recommendations regarding breast cancer screening are controversial. Please discuss with your primary care provider which strategy is best for you and whether a mammogram is right for you. Your imaging studies and report will be kept on file at [facility] as part of your permanent medical record and are available for your continuing care. Thank you for allowing us to help in meeting your health care needs. Sincerely, Dr. Marquez Interpreting Radiologist [facility] (Normal over 40) [facility] SCREENING Observed: 11/29/2017 Status: F Source: [place] 8:[address] [facility] [place] REPOSITORY * * *Final Report* * * DATE OF EXAM: Nov 29 2017 8:22AM OSMEL [id number] - ARABELLA SCREENING / PROCEDURE REASON: Encounter for screening mammogram for malignant neoplasm of breast * * * * Physician Interpretation * * * * RESULT: #[id number] - ARABELLA SCREENING BILATERAL DIGITAL SCREENING MAMMOGRAM WITH CAD: 11/29/2017 HISTORY: Encounter For Screening Mammogram For Malignant Neoplasm Of Breast. RESULT: TECHNIQUE: The study was acquired using full field digital technology and interpreted from soft copy. Current study was also evaluated with a Computer Aided Detection (CAD). Comparison is made to exams dated: 06/19/2016 mammogram, 07/08/2014 mammogram, 09/03/2012 mammogram - [facility], and 09/17/2012 mammogram - [facility]. There are scattered fibroglandular elements in both breasts. No significant masses, calcifications, or other findings are seen in either breast. There has been no significant interval change. IMPRESSION: NEGATIVE There is no mammographic evidence of malignancy. A 1 year screening mammogram is recommended. The exam was reviewed by a staff physician. ashly Ambrosio M.D., M.D./carly:11/29/2017 17:40:55 Cnc Lathe Machine Operator: Gill Villarreal RT(R)(M), [facility] letter sent: Normal over 40 Mammogram BI-RADS: 1 Negative Junior Web Developer: Carly Transcribe Date/Time: Nov 29 2017 7:59A Dictated by: VERNON MCCLOUD MD This examination was interpreted and the report reviewed and electronically signed by: IVA MARQUEZ MD on Nov 29 2017 5:40PM EST [id number] Observed: 11/29/2017 Status: COMPLETED Source: [place] 8:00 AM [facility] REPOSITORY HNO ID: [id number] Author: Mara Medina Service: (none) Author Type: (none) Type: Progress Notes Filed: 11/29/2017 8:01 AM Note Text: Radiology Service Progress Note PATIENT NAME: Talia Pearce DATE OF SERVICE: November 29, 2017 TIME: 8:00 AM PATIENT IDENTITY VERIFICATION COMPLETED USING TWO (2) METHODS: Patient confirmed name verbally and Date of . PATIENT GENDER DATA: Female. status: : No status: NO. PATIENT RELEVANT IMPLANT DATA REVIEWED: Not Applicable RADIOLOGY DEPARTMENT: [facility] DATA: Not applicable SIGNED BY: Mara Medina November 29, 2017 8:00 AM PROGRESS Observed: 11/21/2017 Status: COMPLETED Source: [place] 8:[address] [facility] REPOSITORY O ID: [id number] Author: Ceferino Deal) Taty Service: (none) Author Type: Physician Type: Progress Notes Filed: 11/21/2017 9:28 AM Note Text: Chief Complaint Patient presents with: medication review HPI Talia Pearce is a 52 year old female who presents here today for yearly check and med review. Daughter successfully underwent double lung transplant and is doing well. Patient achy from helping move her around for the last couple weeks, but daughter doing well on her own at this time. Still taking SSRI and SNRI for anxiety and depression. Wanted to wait until after transplant before stopping one of the meds. Anxiety and depression well controlled. Discussed stopping Celexa. Requesting medication for chronic insomnia. Previously on Klonopin. Offered trazodone instead. Due for refills on medications today. Needs order for mammogram and will schedule appt with [facility] for pap smear as has been more than 5 years. Past medical history, appointments, medications, allergies reviewed. Previous Medical History PAST MEDICAL HISTORY Diagnosis Date - Asthma - Chronic depressive personality disorder - Diverticulitis - Diverticulitis 11/24/2015, 08/09/2016 - GERD (gastroesophageal reflux disease) - Hemorrhage of gastrointestinal tract, unspecified - Hemorrhage of rectum and anus - Hemorrhagic ovarian cyst 12/2011 - Hyperlipidemia - Hypertension - TAMICA (obstructive sleep apnea) Previous Surgical History PAST SURGICAL HISTORY Procedure Laterality Date - APPENDECTOMY - DELIVERY ONLY , low cervical - COLONOSCOP W/ OR W/O [facility] SPEC 11/24/2015 Repeat 11/2025 - LAP-ABD DX-W/WO SPECMN-SEP PRO 11/28/2012 dx lap with excision of left pelvic mass - PAST SURGICAL HISTORY OF 2007 abdominoplasty ([place]), at time of surgery - REMOVAL GALLBLADDER Cholecystectomy - SIGMOIDOSCOPY FLEX DIAG 07/12/2007 Sigmoidoscopy - SPINAL FUSION,ANT,EA ADNL LEVEL - TOTAL ABDOM HYSTERECTOMY 2007 Dr. Moore Family History FAMILY HISTORY Problem Relation Age of Onset - Heart Mother - Heart Father heart attack x 3 - Cancer Paternal Grandfather lung cancer - Cancer Maternal Aunt lymphoma - Cancer Maternal Aunt lymphoma - Cystic Fibrosis [OTHER] Daughter Patient Allergies ALLERGIES Allergen Reactions - Tetanus Vaccines An* - Wellbutrin [Bupropi* Other: See Comments Hearing impaired. Current Medications Current Outpatient Prescriptions on File Prior to Visit: lisinopril (PRINIVIL) 10 mg tablet Take 1 tablet by mouth once daily. venlafaxine XR (EFFEXOR XR) 150 mg 24 hr capsule Take 1 capsule by mouth once daily. citalopram (CELEXA) 40 mg tablet Take 1 tablet by mouth daily at bedtime. triamterene-hydrochlorothiazide (DYAZIDE) 37.5-25 mg per capsule Take 1 capsule by mouth once daily. ondansetron (ZOFRAN, HYDROCHLORIDE,) 8 mg tablet Take 1 tablet by mouth every 8 hours as needed. clonazePAM (KLONOPIN) 0.5 mg tablet Take by mouth. Take 1 or 2 tablets at bedtime for sleep. guaiFENesin (MUCINEX) 600 mg 12 hr tablet Take 2 tablets by mouth twice daily. albuterol HFA (PROVENTIL HFA, VENTOLIN HFA) 90 mcg/actuation inhaler Inhale 2 Puffs as instructed every 4 hours as needed. 2 PUFFS Q4H PRN WHEEZE/COUGH CPAP Use 11 cm in the nose daily at bedtime. With humidification. CPAP Device and supplies. Mask of choice. Omeprazole Magnesium (PRILOSEC OTC) 20 mg tablet Take 20 mg by mouth once daily. methylcellulose(CITRUCEL 500 MG TAB) Take two(2) tablets once to three times daily as needed. No current facility-administered medications on file prior to visit. Social History Social History Marital status: Spouse name: Darron Years of education: Number of children: 1 Occupational History Occupation Employer Comment manager [employer] Social History Main Topics Smoking status: Never Smoker Smokeless tobacco: Never Used Alcohol use: No Comment: only occasionally Drug use: No Sexual activity: Yes Partners with: Male control/protection: Vasectomy Comment: hysterectomy Social History Narrative . Daughter born 1986. She has CF. Looking at lung transplant. [facility] declined to do one. [facility] is to evaluate her. Review of Symptoms REVIEW OF SYSTEMS GENERAL: No weight loss, malaise or fevers RESPIRATORY: Negative for cough, hemoptysis, wheezing, COPD, dyspnea or shortness of breath CARDIOVASCULAR: Negative for chest pain, leg swelling, hypertension, CHF or palpitations GI: No nausea, vomiting, or diarrhea SKIN: Negative for lesions, rash, and itching EXAM: BP 108/78 Pulse 76 Resp 14 Wt 98 kg (216 lb) LMP 05/04/2008 BMI 33.33 kg/m? General Appearance: Well appearing, alert, in no acute distress, well-hydrated, well nourished.. Skin: Skin color, texture, turgor normal, no suspicious rashes or lesions. Lungs: Lungs clear to auscultation. No wheezing, rhonchi, rales. Heart: RRR without murmur, gallop, or rubs. No ectopy. Abdomen: Normal abdominal exam, Abdomen soft, non-tender. Bowel sounds normal. No masses, organomegaly. Extremities: No deformities, edema, skin discoloration, clubbing or cyanosis. Good capillary refill. . Health Maintenance List DTAP,TDAP,TD(1 - Tdap) due on 12/21/1999 ZOSTER VACCINE (SHINGRIX)(1 of 2) due on 2014 MAMMOGRAM due on 06/19/2017 PAP EVERY 5 YEARS due on 09/03/2017 HPV EVERY 5 YEARS due on 09/03/2017 INFLUENZA(Season Ended) due on 02/02/2018 DIABETES SCREEN due on 10/08/2019 LIPID SCREEN due on 10/07/2021 COLORECTAL CANCER SCREENING,SEE MODIFIER due on 11/23/2025 HEPATITIS C SCREENING Completed Data reviewed Component Latest Ref Rng AND Units 10/07/2016 Protein, Total 6.3 - 8.0 g/dL 7.7 Albumin 3.9 - 4.9 g/dL 4.1 Calcium 8.5 - 10.2 mg/dL 9.8 Bilirubin, Total 0.2 - 1.3 mg/dL 0.4 Alkaline Phosphatase 32 - 117 U/L 55 AST 13 - 35 U/L 22 Glucose 74 - 99 mg/dL 90 BUN 7 - 21 mg/dL 21 Creatinine 0.58 - 0.96 mg/dL 0.87 Sodium 136 - 144 mmol/L 140 Potassium 3.7 - 5.1 mmol/L 4.2 Chloride 97 - 105 mmol/L 101 CO2 22 - 30 mmol/L 25 Anion Gap 9 - 18 mmol/L 14 ALT 7 - 38 U/L 21 eGFR- >60 eGFR-All Other Races . >60 WBC 3.70 - 11.00 k/uL 6.87 RBC 3.90 - 5.20 m/uL 3.88 (L) Hemoglobin 11.5 - 15.5 g/dL 12.5 Hematocrit 36.0 - 46.0 % 38.4 MCV 80.0 - 100.0 fL 99.0 MCH 26.0 - 34.0 pG 32.2 MCHC 30.5 - 36.0 g/dL 32.6 RDW-CV 11.5 - 15.0 % 13.1 Platelet Count 150 - 400 k/uL 266 MPV 9.0 - 12.7 fL 10.7 Absolute nRBC 0.00 k/uL 0.00 Triglyceride 30 - 149 mg/dL 107 Cholesterol, Total 100 - 199 mg/dL 207 (H) HDL Cholesterol >55 mg/dL 43 (L) VLDL Cholesterol 6 - 40 mg/dL 21 LDL Cholesterol 60 - 129 mg/dL 143 (H) Fasting Time hrs 15 TC:HDL Ratio 1.00 - 5.00 4.81 LDL:HDL Ratio 0.50 - 3.55 3.33 Non HDL Cholesterol 90 - 159 mg/dL 164 (H) ASSESSMENT/PLAN: 1. Chronic insomnia - ICD9: 780.52, ICD10: F51.04 (primary diagnosis) Start trazodone once she is off Celexa. To call if not effective. 2. ISHMAEL (generalized anxiety disorder) - ICD9: 300.02, ICD10: F41.1 Controlled. Stop SSRI, continue SNRI. 3. Recurrent major depressive disorder, in partial remission (HCC) - ICD9: 296.35, ICD10: F33.41 Controlled. Stop SSRI, continue SNRI. 4. TAMICA (obstructive sleep apnea) - ICD9: 327.23, ICD10: G47.33 Continue CPAP nightly. 5. Gastroesophageal reflux disease, esophagitis presence not specified - ICD9: 530.81, ICD10: K21.9 - Continue treatment with Prilosec 20 mg QD 6. Adjustment disorder with anxiety - ICD9: 309.24, ICD10: F43.22 - CITALOPRAM 40 MG TABLET - VENLAFAXINE ER 150 MG CAPSULE,EXTENDED RELEASE 24 HR 7. Essential hypertension - ICD9: 401.9, ICD10: I10 - good control - Continue current medication(s) - Encouraged dietary sodium restriction/DASH diet - Recommended regular aerobic exercise. - Reviewed risks of HTN and principles of treatment - Goal of BP <140/90 - TRIAMTERENE 37.5 MG-HYDROCHLOROTHIAZIDE 25 MG CAPSULE - CBC - COMP METABOLIC PANEL 8. Pure hypercholesterolemia - ICD9: 272.0, ICD10: E78.00 - to be determined upon return of lab results - Encouraged following a low fat, low cholesterol diet. - Discussed the benefits of regular aerobic exercise and weight loss. - LIPID PANEL BASIC 9. Screening mammogram, encounter for - ICD9: V76.12, ICD10: Z12.31 - Set up for mammogram, yearly mammogram recommended - Follow up for annual exam in one year. - ARABELLA SCREENING Ceferino Posey MD CNOV Observed: 11/21/2017 Status: COMPLETED Source: [place] 8:00 AM [facility] REPOSITORY Office Visit (FAMPWS) TALIA PEARCE ([id number]) 1965 F Date Time Provider Department 11/21/17 8:00 AM CEFERINO POSEY) FAMPWS During your visit today, we recorded the following information about you: Pulse Respiration Blood pressure Weight 76/minute 14/minute 108/78 98 kg Ceferino Posey MD 11/21/2017 9:28 AM Signed Chief Complaint Patient presents with: medication review HPI Talia Pearce is a 52 year old female who presents here today for yearly check and med review. Daughter successfully underwent double lung transplant and is doing well. Patient achy from helping move her around for the last couple weeks, but daughter doing well on her own at this time. Still taking SSRI and SNRI for anxiety and depression. Wanted to wait until after transplant before stopping one of the meds. Anxiety and depression well controlled. Discussed stopping Celexa. Requesting medication for chronic insomnia. Previously on Klonopin. Offered trazodone instead. Due for refills on medications today. Needs order for mammogram and will schedule appt with [facility] for pap smear as has been more than 5 years. Past medical history, appointments, medications, allergies reviewed. Previous Medical History PAST MEDICAL HISTORY Diagnosis Date - Asthma - Chronic depressive personality disorder - Diverticulitis - Diverticulitis 11/24/2015, 08/09/2016 - GERD (gastroesophageal reflux disease) - Hemorrhage of gastrointestinal tract, unspecified - Hemorrhage of rectum and anus - Hemorrhagic ovarian cyst 12/2011 - Hyperlipidemia - Hypertension - TAMICA (obstructive sleep apnea) Previous Surgical History PAST SURGICAL HISTORY Procedure Laterality Date - APPENDECTOMY - DELIVERY ONLY , low cervical - COLONOSCOP W/ OR W/O [facility] SPEC 11/24/2015 Repeat 11/2025 - LAP-ABD DX-W/WO SPECMN-SEP PRO 11/28/2012 dx lap with excision of left pelvic mass - PAST SURGICAL HISTORY OF 2007 abdominoplasty ([place]), at time of surgery - REMOVAL GALLBLADDER Cholecystectomy - SIGMOIDOSCOPY FLEX DIAG 07/12/2007 Sigmoidoscopy - SPINAL FUSION,ANT,EA ADNL LEVEL - TOTAL ABDOM HYSTERECTOMY 2007 Dr. Moore Family History FAMILY HISTORY Problem Relation Age of Onset - Heart Mother - Heart Father heart attack x 3 - Cancer Paternal Grandfather lung cancer - Cancer Maternal Aunt lymphoma - Cancer Maternal Aunt lymphoma - Cystic Fibrosis [OTHER] Daughter Patient Allergies ALLERGIES Allergen Reactions - Tetanus Vaccines An* - Wellbutrin [Bupropi* Other: See Comments Hearing impaired. Current Medications Current Outpatient Prescriptions on File Prior to Visit: lisinopril (PRINIVIL) 10 mg tablet Take 1 tablet by mouth once daily. venlafaxine XR (EFFEXOR XR) 150 mg 24 hr capsule Take 1 capsule by mouth once daily. citalopram (CELEXA) 40 mg tablet Take 1 tablet by mouth daily at bedtime. triamterene-hydrochlorothiazide (DYAZIDE) 37.5-25 mg per capsule Take 1 capsule by mouth once daily. ondansetron (ZOFRAN, HYDROCHLORIDE,) 8 mg tablet Take 1 tablet by mouth every 8 hours as needed. clonazePAM (KLONOPIN) 0.5 mg tablet Take by mouth. Take 1 or 2 tablets at bedtime for sleep. guaiFENesin (MUCINEX) 600 mg 12 hr tablet Take 2 tablets by mouth twice daily. albuterol HFA (PROVENTIL HFA, VENTOLIN HFA) 90 mcg/actuation inhaler Inhale 2 Puffs as instructed every 4 hours as needed. 2 PUFFS Q4H PRN WHEEZE/COUGH CPAP Use 11 cm in the nose daily at bedtime. With humidification. CPAP Device and supplies. Mask of choice. Omeprazole Magnesium (PRILOSEC OTC) 20 mg tablet Take 20 mg by mouth once daily. methylcellulose(CITRUCEL 500 MG TAB) Take two(2) tablets once to three times daily as needed. No current facility-administered medications on file prior to visit. Social History Social History Marital status: Spouse name: Darron Years of education: Number of children: 1 Occupational History Occupation Employer Comment manager [employer] Social History Main Topics Smoking status: Never Smoker Smokeless tobacco: Never Used Alcohol use: No Comment: only occasionally Drug use: No Sexual activity: Yes Partners with: Male control/protection: Vasectomy Comment: hysterectomy Social History Narrative . Daughter born 1986. She has CF. Looking at lung transplant. [facility] declined to do one. [facility] is to evaluate her. Review of Symptoms REVIEW OF SYSTEMS GENERAL: No weight loss, malaise or fevers RESPIRATORY: Negative for cough, hemoptysis, wheezing, COPD, dyspnea or shortness of breath CARDIOVASCULAR: Negative for chest pain, leg swelling, hypertension, CHF or palpitations GI: No nausea, vomiting, or diarrhea SKIN: Negative for lesions, rash, and itching EXAM: BP 108/78 Pulse 76 Resp 14 Wt 98 kg (216 lb) LMP 05/04/2008 BMI 33.33 kg/m? General Appearance: Well appearing, alert, in no acute distress, well-hydrated, well nourished.. Skin: Skin color, texture, turgor normal, no suspicious rashes or lesions. Lungs: Lungs clear to auscultation. No wheezing, rhonchi, rales. Heart: RRR without murmur, gallop, or rubs. No ectopy. Abdomen: Normal abdominal exam, Abdomen soft, non-tender. Bowel sounds normal. No masses, organomegaly. Extremities: No deformities, edema, skin discoloration, clubbing or cyanosis. Good capillary refill. . Health Maintenance List DTAP,TDAP,TD(1 - Tdap) due on 12/21/1999 ZOSTER VACCINE (SHINGRIX)(1 of 2) due on 2014 MAMMOGRAM due on 06/19/2017 PAP EVERY 5 YEARS due on 09/03/2017 HPV EVERY 5 YEARS due on 09/03/2017 INFLUENZA(Season Ended) due on 02/02/2018 DIABETES SCREEN due on 10/08/2019 LIPID SCREEN due on 10/07/2021 COLORECTAL CANCER SCREENING,SEE MODIFIER due on 11/23/2025 HEPATITIS C SCREENING Completed Data reviewed Component Latest Ref Rng AND Units 10/07/2016 Protein, Total 6.3 - 8.0 g/dL 7.7 Albumin 3.9 - 4.9 g/dL 4.1 Calcium 8.5 - 10.2 mg/dL 9.8 Bilirubin, Total 0.2 - 1.3 mg/dL 0.4 Alkaline Phosphatase 32 - 117 U/L 55 AST 13 - 35 U/L 22 Glucose 74 - 99 mg/dL 90 BUN 7 - 21 mg/dL 21 Creatinine 0.58 - 0.96 mg/dL 0.87 Sodium 136 - 144 mmol/L 140 Potassium 3.7 - 5.1 mmol/L 4.2 Chloride 97 - 105 mmol/L 101 CO2 22 - 30 mmol/L 25 Anion Gap 9 - 18 mmol/L 14 ALT 7 - 38 U/L 21 eGFR- >60 eGFR-All Other Races . >60 WBC 3.70 - 11.00 k/uL 6.87 RBC 3.90 - 5.20 m/uL 3.88 (L) Hemoglobin 11.5 - 15.5 g/dL 12.5 Hematocrit 36.0 - 46.0 % 38.4 MCV 80.0 - 100.0 fL 99.0 MCH 26.0 - 34.0 pG 32.2 MCHC 30.5 - 36.0 g/dL 32.6 RDW-CV 11.5 - 15.0 % 13.1 Platelet Count 150 - 400 k/uL 266 MPV 9.0 - 12.7 fL 10.7 Absolute nRBC 0.00 k/uL 0.00 Triglyceride 30 - 149 mg/dL 107 Cholesterol, Total 100 - 199 mg/dL 207 (H) HDL Cholesterol >55 mg/dL 43 (L) VLDL Cholesterol 6 - 40 mg/dL 21 LDL Cholesterol 60 - 129 mg/dL 143 (H) Fasting Time hrs 15 TC:HDL Ratio 1.00 - 5.00 4.81 LDL:HDL Ratio 0.50 - 3.55 3.33 Non HDL Cholesterol 90 - 159 mg/dL 164 (H) ASSESSMENT/PLAN: 1. Chronic insomnia - ICD9: 780.52, ICD10: F51.04 (primary diagnosis) Start trazodone once she is off Celexa. To call if not effective. 2. ISHMAEL (generalized anxiety disorder) - ICD9: 300.02, ICD10: F41.1 Controlled. Stop SSRI, continue SNRI. 3. Recurrent major depressive disorder, in partial remission (HCC) - ICD9: 296.35, ICD10: F33.41 Controlled. Stop SSRI, continue SNRI. 4. TAMICA (obstructive sleep apnea) - ICD9: 327.23, ICD10: G47.33 Continue CPAP nightly. 5. Gastroesophageal reflux disease, esophagitis presence not specified - ICD9: 530.81, ICD10: K21.9 - Continue treatment with Prilosec 20 mg QD 6. Adjustment disorder with anxiety - ICD9: 309.24, ICD10: F43.22 - CITALOPRAM 40 MG TABLET - VENLAFAXINE ER 150 MG CAPSULE,EXTENDED RELEASE 24 HR 7. Essential hypertension - ICD9: 401.9, ICD10: I10 - good control - Continue current medication(s) - Encouraged dietary sodium restriction/DASH diet - Recommended regular aerobic exercise. - Reviewed risks of HTN and principles of treatment - Goal of BP <140/90 - TRIAMTERENE 37.5 MG-HYDROCHLOROTHIAZIDE 25 MG CAPSULE - CBC - COMP METABOLIC PANEL 8. Pure hypercholesterolemia - ICD9: 272.0, ICD10: E78.00 - to be determined upon return of lab results - Encouraged following a low fat, low cholesterol diet. - Discussed the benefits of regular aerobic exercise and weight loss. - LIPID PANEL BASIC 9. Screening mammogram, encounter for - ICD9: V76.12, ICD10: Z12.31 - Set up for mammogram, yearly mammogram recommended - Follow up for annual exam in one year. - [facility] SCREENING MD Lane Roque Ma 11/21/2017 8:24 AM Signed Patient states her daughter had a lung transplant in Jul 2017 and has been lifting daughter since she has been home - c/o tendoninitis in both arms. Referring Provider: CEFERINO POSEY () [[id number]] Allergies As of Date: 11/21/2017 Noted Allergy Reaction TETANUS VACCINES AND TOXOID 01/08/2006 8 - GI Upset WELLBUTRIN (BUPROPION HCL) 10/12/2014 14 - Other: See Comments Comments: Hearing impaired. Date Reviewed: 11/21/2017 Reviewed by: Lane Bartholomew Ma - Fully Assessed Reason for Visit: medication review [Other] Primary Visit Diagnosis:Chronic insomnia [F51.04] Other Visit Diagnoses:ISHMAEL (generalized anxiety disorder) [F41.1] Recurrent major depressive disorder, in partial remission (HCC) [F33.41] TAMICA (obstructive sleep apnea) [G47.33] Gastroesophageal reflux disease, esophagitis presence not specified [K21.9] Adjustment disorder with anxiety [F43.22] Essential hypertension [I10] Pure hypercholesterolemia [E78.00] Screening mammogram, encounter for [Z12.31] Order(s):citalopram (CELEXA) 40 mg tabletTake 1/2 tablet daily for 2 weeks, then stopDisp: 30 tabletRfl: 0 venlafaxine ER (EFFEXOR XR) 150 mg 24 hr capsuleTake 1 capsule by mouth once daily.Disp: 30 capsuleRfl: 5 triamterene-hydrochlorothiazide (DYAZIDE) 37.5-25 mg per capsuleTake 1 capsule by mouth once daily.Disp: 90 capsuleRfl: 1 albuterol HFA (PROVENTIL HFA, VENTOLIN HFA) 90 mcg/actuation inhalerInhale 2 Puffs as instructed every 4 hours as needed. 2 PUFFS Q4H PRN WHEEZE/COUGHDisp: 1 InhalerRfl: 5 traZODone (DESYREL) 50 mg tabletTake 1 tablet by mouth daily at bedtime.Disp: 30 tabletRfl: 2 CBC [SQCBC] Order #: [id number] FUTURE COMP METABOLIC PANEL [SQCMP] Order #: [id number] FUTURE LIPID PANEL BASIC [SQLIPB] Order #: [id number] FUTURE ARABELLA SCREENING [6133173] Order #: [id number] FUTURE Prescriptions as of 11/21/2017 Sig: CITALOPRAM 40 MG TABLET Take 1/2 tablet daily for 2 w* VENLAFAXINE ER 150 MG CAPSULE* Take 1 capsule by mouth once * TRIAMTERENE 37.5 MG-HYDROCHLO* Take 1 capsule by mouth once * ALBUTEROL SULFATE HFA 90 MCG/* Inhale 2 Puffs as instructed * LISINOPRIL 10 MG TABLET Take 1 tablet by mouth once d* ONDANSETRON HCL 8 MG TABLET Take 1 tablet by mouth every * GUAIFENESIN ER 600 MG TABLET,* Take 2 tablets by mouth twice* CPAP Use 11 cm in the nose daily a* OMEPRAZOLE MAGNESIUM 20 MG TA* Take 20 mg by mouth once bayron* * CITRUCEL 500 MG TABLET Take two(2) tablets once to t* TRAZODONE 50 MG TABLET Take 1 tablet by mouth daily * Problem List As Of Date 11/21/2017 Noted Resolved Backache, unspecified [M54.9] INVALID FOR*11/21/2017 More... Routine gynecological examination [Z01.419] INVALID FOR*11/21/2017 Class: Chronic More... Adjustment Disorder with Anxiety [F43.22] INVALID FOR* Insomnia, Unspecified [G47.00] INVALID FOR* Edema [R60.9] INVALID FOR* More... Tension Headache [G44.209] INVALID FOR* Vitamin D Deficiency [E55.9] INVALID FOR* Hemorrhagic ovarian cyst [N83.209] INVALID FOR* Abdominal pain, left lower quadrant [R10.32] INVALID FOR*11/21/2017 Suprapubic pain, acute [R10.2] INVALID FOR* Abdominal pain, generalized [R10.84] INVALID FOR*11/21/2017 Obstructive sleep apnea treated with continuous*INVALID FOR* Rhinitis [J31.0] INVALID FOR*11/21/2017 Essential hypertension [I10] INVALID FOR* Myalgia and myositis, unspecified [UFO9451] INVALID FOR* Diverticulitis of large intestine without perfo*INVALID FOR* Hypertension [I10] 11/21/2017 Asthma [J45.909] 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 Prescriptions ordered this encounter Disp Refills Start End CITALOPRAM 40 MG TABLET 30 t* 0 11/21/2017 Class: Med Update Sig: Take 1/2 tablet daily for 2 weeks, then stop VENLAFAXINE ER 150 MG CAPSULE,EXTEND* 30 c* 5 11/21/2017 Route: ORAL Sig: Take 1 capsule by mouth once daily. TRIAMTERENE 37.5 MG-HYDROCHLOROTHIAZ* 90 c* 1 11/21/2017 Route: ORAL Sig: Take 1 capsule by mouth once daily. ALBUTEROL SULFATE HFA 90 MCG/ACTUATI* 1 In* 5 11/21/2017 Route: INHALATION Sig: Inhale 2 Puffs as instructed every 4 hours as needed. 2 PUFFS Q4H PRN WHEEZE/COUGH TRAZODONE 50 MG TABLET 30 t* 2 11/21/2017 Route: ORAL Sig: Take 1 tablet by mouth daily at bedtime. Medications Discontinued During This Encounter citalopram (CELEXA) 40 mg tablet 90 t* 3 11/10/2016 11/21/2017 Route: ORAL Sig: Take 1 tablet by mouth daily at bedtime. Disc: Reason for discontinue is not on file. clonazePAM (KLONOPIN) 0.5 mg tablet 30 t* 2 06/06/2016 11/21/2017 Class: Print RX Sig: Take by mouth. Take 1 or 2 tablets at bedtime for sleep. Disc: Reason for discontinue is not on file. venlafaxine XR (EFFEXOR XR) 150 mg 2* 30 c* 5 06/22/2017 11/21/2017 Route: ORAL Sig: Take 1 capsule by mouth once daily. Disc: Reason for discontinue is not on file. triamterene-hydrochlorothiazide (DYA* 90 c* 3 11/10/2016 11/21/2017 Route: ORAL Sig: Take 1 capsule by mouth once daily. Disc: Reason for discontinue is not on file. albuterol HFA (PROVENTIL HFA, VENTOL* 1 In* 3 10/01/2015 11/21/2017 Route: INHALATION Sig: Inhale 2 Puffs as instructed every 4 hours as needed. 2 PUFFS Q4H PRN WHEEZE/COUGH Disc: Reason for discontinue is not on file. Disposition: Return in about 6 months (around 05/23/2018). Follow-up and Disposition History Recorded Encounter Status:Closed by CEFERINO POSEY MD on 11/21/17 ALLERGIES ALLERGIES DATE TYPE / CODE NAME / CODE REACTION SEVERITY SOURCE 06/19/2018 Drug Tetanus Vaccines Vomiting Unknown [facility] Allergy/416 and Hospital 924535(SNOM Toxoid/[id number] Repository ED CT) 9(RXNORM) 06/19/2018 Drug bupropion/L03763 I LOSE MY Unknown [place] [facility] Allergy/416 4611(RXNORM) [facility] Hospital 740478(SNOM SMELL Repository ED CT) 10/12/2014 DRUG BUPROPION HCL OTHER: SEE C [facility] INGREDI/[address] [place] 636396(SNOM Repository ED CT) 01/08/2006 Drug TETANUS VACCINES GI UPSET [facility] Class/02543 AND TOXOID [place] 1003(SNOMED Repository CT) 01/08/2006 Drug TETANUS VACCINES [facility] Class/10635 AND TOXOID [place] 1003(SNOMED Repository CT) ENCOUNTERS ENCOUNTERS ADMIT/DISCHARGE ACCOUNT ADMITTING ENCOUNTER LOCATION SOURCE NUMBER CLASS 06/19/2018/06/19/19 [id number] Emergency [place] [facility] ing:ED Repository 03/18/2018/03/18/20 [id number] Ambulatory [address] [place] Repository 03/18/2018/03/19/20 [id number] Ambulatory [address] [place] Repository 03/02/2018/03/02/20 [id number] Ambulatory [address] Repository 11/29/2017/11/30/19 [id number] Ambulatory [address] [place] Repository 11/21/2017/11/23/19 [id number] Ambulatory [address] Repository PAYERS PAYERS ENCOUNTER GUARANTOR PAYER SUBSCRIBER SOURCE 06/19/2018 DARRON [id number] Primary DARRON WIDMERDOB: Terrance STACY Insurance:[employer]HE[employer] [id number] [place] Number: [facility] [address]Rax: [phone] [id number] Repository [phone] () Date:[id number], [place] [address]OE: 06/19/2018 Secondary NOT GIVENUNK Terr[place] Insurance:SELF PAY [facility]: Effective Repository Date:2018-06-19
== END 2018-06-19 22:35 | disposition home or self-care (01) ==
PROVIDERS: Emergency Provider Emergency Medicine; Family Provider Family Medicine; PCP Family Medicine
DX: G43.909 Migraine, unspecified, not intractable, without status migrainosus (principal); Z79.899 Other long term (current) drug therapy
CPT/HCPCS: 96361; 96374; 96375; 99283; J7030; A4216; J1110

== ENCOUNTER 2019-03-31 12:54 | Emergency (ER) | payer BC, SELFPAY ==
[2019-03-31 12:54] VITALS: BP 137/89; PULSE 91; RESP 16; TEMP 36.6; O2SAT 95; BMI 34.2
[2019-03-31] MEDS: proCHLORPERazine 10 MG/2 ML Vial IV (13:46)
[2019-03-31] MEDS: DiphenhydrAMINE 50 MG/ML Syringe IV (13:47)
[2019-03-31] MEDS: Ketorolac 30 MG/ML Syringe IV (13:47)
[2019-03-31] MEDS: 0.9% Normal Saline 1,000 ML 999 ML IV (13:47)
--- NOTE | 2019-03-31 14:15 | ED.VIS.GEN ---
History of Present Illness Chief Complaint: Headache Informant: Patient Onset: Days Context: Gradual Onset Timing: Continuous Current Severity: Moderate Maximum Severity: Severe Narrative: The patient presents to the emergency department migraine headache. Patient has a history of migraines. She states that over the past 2 days, she is had a dull progressive headache. She is not on any medications at home. She did try ibuprofen with little improvement. She is been nauseated without vomiting. She does describe light and sound sensitivity. She denies any trauma, fever, or neck pain. She is otherwise been in her normal state of health. Prior similar symptoms: Yes Recent Illness/Hospitalization: No Past Medical History - Allergies and Home Meds Allergies/Adverse Reactions: Allergies bupropion [From Wellbutrin] Allergy (Verified 03/31/19 12:56) I LOSE MY HEARING AND SMELL Tetanus Vaccines and Toxoid [Tetanus Vaccines & Toxoid] Adverse Reaction (Verified 03/31/19 12:56) Vomiting Primary Care Physician: Siomne Posey MD [Primary Care Provider] - Prior records reviewed: Yes Past Medical History: - - Migraine headache Surgical History: cholecystectomy, herniorrhaphy, - - spinal surgery for scoliosis, , ovarian cyst removal, repair of hip labrum Smoking Status: Never smoker - Family History Maternal Family History: Reports: Hypertension Paternal Family History: Reports: Heart Disease Review of Systems General: Denies: Chills, Fever, Sweats Eyes: Denies: Visual changes - bilaterally, Diplopia ENT: Denies: Rhinorrhea, Sore throat Cardiovascular: Denies: Chest pain, Palpitations Respiratory: Denies: Dyspnea, Cough, Dyspnea on exertion Gastrointestinal: Reports: Nausea. Denies: Abdominal pain, Vomiting, Diarrhea, Melena, Hematochezia Genitourinary: Denies: Dysuria, Hematuria, Frequency Musculoskeletal: Denies: Back pain, Extremity Pain Skin: Denies: Rash, Wounds Neurological: Reports: Headache. Denies: Weakness, Numbness Physical Exam Vital Signs/Narrative: Vital Signs Temp Pulse Resp BP Pulse Ox 03/31/19 12:54 97.8 F 91 16 137/89 H 95 Inital Vital Signs reviewed: Yes General: Well nourished, Well developed, No Acute Distress Head: Normocephalic, Atraumatic Eyes: Perrl, EOMI ENT: Moist mucous membranes, No rhinorrhea Neck: Supple, Nontender Cardiovascular: Regular rate, Regular rhythm, No murmurs Respiratory: No distress, CTA bilaterally, Chest nontender Abdomen: Soft, Nontender, Nondistended, Normal bowel sounds Back: Nontender, Normal Inspection Extremities: Nontender, No edema Skin: Normal color, No rash Neurological: Alert, Oriented x3, Cranial nerves II-XII grossly intact, Normal Strength, Normal Sensation Psychological: Normal affect, Normal Mood Diagnostic/Tx/Re-eval - Medical Decision Making The patient presents with a normal migraine. She is not meningitic or encephalopathic. She is very well-appearing. IV was established. The patient was given Toradol, Compazine, and Benadryl. She was observed. She had total resolution of her headache and is resting comfortably. At this point, I do feel that she is safe for outpatient therapy. She will be discharged home. Impression 1. Migraine headache ED Disposition - Plan for ED Patient: Disposition: Home or Assisted Living Instructions: ED, Migraine (Classical) Referrals: Simone Posey MD [Primary Care Provider] -
== END 2019-03-31 15:05 | disposition home or self-care (01) ==
LOC: ED 13:56
PROVIDERS: Emergency Provider Emergency Medicine; Family Provider Family Medicine; PCP Family Medicine
DX: G43.909 Migraine, unspecified, not intractable, without status migrainosus (principal)
CPT/HCPCS: 96361; 96374; 96375; 99283

== ENCOUNTER 2020-08-20 13:20 | Outpatient (RCR) | payer BC, SELFPAY ==
[2020-08-20] MEDS: COVID-19 VACC, MRNA(PFIZER)/PF 30 MCG/0.3 ML SYRINGE IM (13:35)
[2020-09-10] MEDS: COVID-19 VACC, MRNA(PFIZER)/PF 30 MCG/0.3 ML SYRINGE IM (13:35)
== END 2020-08-20 23:59 ==
LOC: IMMUN 13:20
PROVIDERS: PCP Family Medicine; Visit Provider Family Medicine
DX: Z23 Encounter for immunization (principal)
CPT/HCPCS: 0001A; 0002A; 91300

== ENCOUNTER 2021-10-07 07:06 | Emergency (ER) | payer BC, SELFPAY ==
[2021-10-07 07:07] VITALS: BP 127/72; PULSE 95; RESP 14; TEMP 36.7; O2SAT 95; BMI 31.9
--- NOTE | 2021-10-07 07:18 | CT_ITS ---
STUDY: CT ABDOMEN AND PELVIS WITH CONTRAST REASON FOR EXAM: Female, 55 years old. Lower abd pain, n/v RADIATION DOSAGE (If Supplied By Facility): CTDIvol = ( 14.93 ) mGy, DLP = ( 1017.83 ) mGycm TECHNIQUE: Transaxial images were obtained from the dome of the diaphragm to the symphysis pubis without oral contrast. IV 100mL Isovue-370 was administered. Sagittal and coronal images were reconstructed. Individualized dose optimization techniques were used for this CT. COMPARISON: Comparison is made with prior study dated 08/13/2016. FINDINGS: The visualized lung bases are unremarkable. The visualized portions of the heart are within normal limits. There is decreased attenuation of the liver consistent with steatosis. The patient is status post cholecystectomy. Normal spleen. Normal pancreas. Normal bilateral adrenal glands. Normal right kidney. Normal left kidney. Normal visualized stomach. Normal small intestine. There is diverticulosis, with thickening of the colon wall, and pericolonic inflammation changes consistent with acute diverticulitis. There are surgical clips in the region of the appendix consistent with a prior appendectomy. There is scattered atherosclerotic calcification of the abdominal aorta, without a demonstrated aneurysm. Normal inferior vena cava. Normal retroperitoneum. Normal urinary bladder. There is a small umbilical hernia containing fat. Levoscoliosis. Emory fixation seen in the lower dorsal spine. CT/Abdomen/Pelvis W IV Cont ONLY IMPRESSION: Diffuse fatty infiltration of the liver. Noncomplicated acute sigmoid diverticulitis. Rotary scoliosis. Electronically Signed: Sanchez Cohen MD at 8:55 EDT ,
--- NOTE | 2021-10-07 07:19 | ED.VIS.GI ---
HPI HPI - GI History of Present Illness Chief Complaint: Abd Pain Informant: patient Abdominal Pain/Flank Pain Onset: Yesterday Context: Gradual Onset Timing: Continuous Quality: Aching and Sharp Location: - (across lower abd) Current Severity: Severe Maximum Severity: Severe Worsened by: - (vomiting) Relieved by: Nothing Nausea/Vomiting/Emesis GI Symptom: Positive for Nausea and Vomiting Onset: Yesterday Quality: Positive for Nonbilious; Negative for Blood streaks, Coffee ground and Hematemesis Diarrhea/Melena/Hematochezia GI Symptom: Positive for - (chronic constipation; had very little amt hard stool yest); Negative for Diarrhea, Melena and Hematochezia Associated Symptoms Associated Symptoms: Positive for - (decreased UOP due to not being able to keep fluids down); Negative for Dysuria, Frequency and Hematuria Narrative Narrative: Diffuse lower abdominal pain and now distention/bloating since yesterday, worsening, vomiting to the point where she cannot keep anything down. She had brief episode of this 1 or 2 weeks ago but it went away on its own, not associated with having a bowel movement. States she has chronic constipation and takes fiber and MiraLAX daily to try to keep herself regular. No recent surgeries but she has had multiple prior abdominal surgeries including appendectomy, cholecystectomy, , hysterectomy, herniorrhaphy. She currently has an infraumbilical hernia that is chronic, contains fat, and is not hurting her right now. [facility] Medical History (Updated 10/07/21 @ 09:[address] Keny Marino MD) Diverticulosis Migraines Home Medications albuterol sulfate [Ventolin HFA] 1 puff INHALATION Q4H PRN PRN 08/09/16 [History Last Taken Unknown] omeprazole 20 mg PO DAILY 08/09/16 [History Last Taken 08/11/16] Fiber Therapy (m-cellulose) 1,000 mg PO DAILY 08/11/16 [History Last Taken Unknown] lisinopril 10 mg PO DAILY #0 08/14/16 [Rx Last Taken 08/11/16] triamterene-hydrochlorothiazid 1 cap PO DAILY #0 08/14/16 [Rx Last Taken 08/11/16] trazodone 50 mg PO QHS 06/19/18 [History Last Taken Unknown] ciprofloxacin HCl 500 mg PO BID #20 tablet 10/07/21 [Rx Last Taken Unknown] duloxetine 60 mg PO DAILY 10/07/21 [History Last Taken Unknown] hydrocodone-acetaminophen 1 tab PO Q4H PRN PRN 2 Days #10 tablet 10/07/21 [Rx Last Taken Unknown] metronidazole 500 mg PO BID #20 tab 10/07/21 [Rx Last Taken Unknown] ondansetron 8 mg PO Q8H PRN PRN #20 tab 10/07/21 [Rx Last Taken Unknown] polyethylene glycol 3350 [Miralax] 17 g PO DAILY 10/07/21 [History Last Taken Unknown] Allergy/AdvReac Type Severity Reaction Status Date / Time bupropion [From Wellbutrin] Allergy I LOSE MY Verified 10/07/21 07:07 HEARING AND SMELL Tetanus Vaccines and Toxoid AdvReac Vomiting Verified 10/07/21 07:07 [Tetanus Vaccines & Toxoid] Surgical History (Updated 10/07/21 @ 07:[address] Keny Marino MD) H/O spinal fusion H/O: hysterectomy History of appendectomy History of History of cholecystectomy History of herniorrhaphy Social History Smoking Status: Never smoker ROS ROS ED Constitutional Constitutional ED: Denies chills or fever(s) Eyes Eyes: Denies change in vision or diplopia ENT ENT ED: Denies rhinorrhea or sore throat Cardiovascular Cardiovascular: Denies chest pain or palpitations Respiratory/Chest Respiratory/Chest: Denies cough or dyspnea Gastrointestinal Gastrointestinal: Reports as per HPI, abdominal pain, bloating, constipation, nausea and vomiting; Denies diarrhea Genitourinary Genitourinary ED: Denies dysuria or hematuria Musculoskeletal Musculoskeletal: Denies back pain or neck pain Integumentary Denies abscess or rash Neurologic Neurologic: Denies headache(s), paresthesias or weakness Psychiatric Psychiatric: Denies anxiety or suicidal thoughts EXAM Physical Exam Const Vital Signs: 10/07/21 07:07 10/07/21 10:08 Temperature 98.1 F Temperature Source Temporal Pulse Rate 95 80 Respiratory Rate 14 16 Blood Pressure 127/72 H 111/67 Blood Pressure Mean 90 81 Pulse Ox 95 98 Oxygen Delivery Method Room Air Positive well nourished and well developed General Appearance ED: well developed and NAD HEENT Reports moist mucous membranes normocephalic and atraumatic Eyes PERRL and EOMs intact bilaterally Neck full ROM and supple Resp normal respiratory effort and clear to auscultation bilaterally Cardio regular rate, regular rhythm and no murmurs GI GI Narrative: Distended but soft. Tender mildly across lower abdomen nonfocal. Easily reducible and nontender infraumbilical midline hernia about 3 cm in diameter. No upper abdominal tenderness. No guarding or rebound tenderness. Auscultation: normoactive bowel sounds Palpation: soft Back/Spine no CVA tenderness General Back: other FROM Extremity normal to inspection General Extremety ED: Negative for edema, pulses abnormal or tenderness General Extremity: Negative for edema or pulses abnormal Neuro oriented x3, CN's II-XII intact bilaterally and no sensory deficits noted Sensorium / Orientation: awake and alert Motor Exam: strength 5/5 throughout Skin no rashes or lesions noted and no wounds MDM MDM MDM Narrative Medical decision making narrative: Patient has a leukocytosis and CT shows acute diverticulitis. Started treatment with Cipro and Flagyl. She was treated with IV fluids, Zofran, morphine, she did have significant improvement in her symptoms. I offered her admission because she was having fairly significant symptoms, however she feels much better and declines, preferring to go home and treat as an outpatient. She was given prescriptions for these antibiotics as well as [place] and Zofran, she is on duloxetine, so I suggested taking 1 pill every 4 days to minimize chances of serotonin syndrome while on the Cipro. Lab Data Attestation: I reviewed the patient's lab results. Labs: Laboratory Results - last 24 hr 10/07/21 10/07/21 10/07/21 07:25 07:25 08:15 WBC 13.9 H RBC 4.09 L Hgb 12.6 Hct 36.8 L MCV 90.0 MCH 30.8 MCHC 34.2 RDW Std Deviation 41.6 RDW Coeff of [place] 12.7 Plt Count 355 MPV 9.3 Immature Gran % (Auto) 0.400 Neut % (Auto) 79.4 H Lymph % (Auto) 12.4 L [place] % (Auto) 7.1 Eos % (Auto) 0.3 Baso % (Auto) 0.4 Absolute Neuts (auto) 11.0 H Absolute Lymphs (auto) 1.72 Nucleated RBC % 0 Sodium 134 L Potassium 3.6 Chloride 99 Carbon Dioxide 25.0 Anion Gap 10 BUN 11 Creatinine 0.81 Estim Creat Clear Calc 75.42 Est GFR (MDRD) Af Amer 94 Est GFR (MDRD) Non-Af 77 BUN/Creatinine Ratio 13.6 Glucose 113 H Calcium 9.4 Total Bilirubin 0.70 AST 14 L ALT 27 Alkaline Phosphatase 73 Total Protein 8.0 Albumin 3.4 Globulin 4.6 H Albumin/Globulin Ratio 0.7 L Lipase 87 Urine Color Yellow Urine Clarity Clear Urine pH 7.0 Ur Specific [place] 1.005 Urine Protein Negative Urine Glucose (UA) Normal Urine Ketones 15 H Urine Occult Blood Negative Urine Nitrite Negative Urine Bilirubin Negative Urine Urobilinogen Normal Ur Leukocyte Esterase 25 H Urine RBC 0 SEEN Urine WBC 0-5 SEEN Ur Squamous Epith Cells 0-5 SEEN Urine Bacteria 0 SEEN Urine Mucus 0 SEEN Radiography Diagnostic Testing: Clinical Impression(s) from Imaging Studies Abdomen/Pelvis CT 10/07/21 07:18 IMPRESSION: Diffuse fatty infiltration of the liver. Noncomplicated acute sigmoid diverticulitis. Rotary scoliosis. Electronically Signed: Sanchez Cohen MD at 8:55 EDT , Discharge Plan Triage Chief Complaint: Abd Pain ED Provider: Keny Marino Dx/Rx/DC Orders Clinical Impression: Diverticulitis of sigmoid colon Instructions: ED Diverticulitis Prescriptions: New hydrocodone-acetaminophen [hydrocodone-acetaminophen] 1 TABLET tablet 1 tab PO Q4H PRN PRN (Reason: Pain) 2 Days Qty: 10 RF: 0 ciprofloxacin HCl [ciprofloxacin HCl] 500 MG tablet 500 mg PO BID Qty: 20 RF: 0 metronidazole [metronidazole] 500 MG tablet 500 mg PO BID Qty: 20 RF: 0 ondansetron [ondansetron] 4 MG tablet 8 mg PO Q8H PRN PRN (Reason: Nausea) Qty: 20 RF: 0 Continued omeprazole 20 MG capsule 20 mg PO DAILY RF: 0 albuterol sulfate [Ventolin HFA] 1 INHALER inhaler 1 puff inhalation Q4H PRN PRN (Reason: Sob &/Or Wheezing) RF: 0 Fiber Therapy (m-cellulose) 500 MG tablet 1,000 mg PO DAILY RF: 0 triamterene-hydrochlorothiazid 1 CAP capsule 1 cap PO DAILY Qty: 0 RF: 0 lisinopril 10 MG tablet 10 mg PO DAILY Qty: 0 RF: 0 trazodone 50 MG tablet 50 mg PO QHS RF: 0 polyethylene glycol 3350 [Miralax] 17 gram Powder In Packet 17 g PO DAILY RF: 0 Held duloxetine 60 mg capsule,delayed release(DR/EC) 60 mg PO DAILY RF: 0 Hold Instructions: Resume on 10/17/21. While on the antibiotics, take one of your duloxetine approximately every fourth day to minimize interaction and to prevent withdrawal from it. If pharmacist has a better recommendation, then go with theirs. Primary Care Provider: Simone Posey Referrals: Simone Posey MD [Primary Care Provider] - 1 Week Activity Restrictions/Additional Instructions: Return to the ER if after 2 days of antibiotics you do not feel you are getting better, and/or you are unable to control your symptoms at home with the medications prescribed. Disposition Disposition: Home, Self Care
[2021-10-07] MEDS: Morphine 4 MG/ML Syringe IV (07:27)
[2021-10-07] MEDS: 0.9% Normal Saline 1,000 ML 1000 ML IV (07:27)
[2021-10-07] MEDS: Ondansetron 4 MG/2 ML Vial IV (07:27)
[2021-10-07 07:43] LABS: Absolute Lymphocyte Count 1.72 X10^3/uL (0.83-4.51); Basophil# 0.06 X10^3/uL; Basophil% 0.4 % (0-1); Eosinophil# 0.04 X10^3/uL; Eosinophils% 0.3 % (0-5); Hematocrit 36.8 % (37-47); Hemoglobin 12.6 g/dL (12.0-15.0); Lymphocyte # 1.72 X10^3/ul (0.83-4.51); Lymphocyte % 12.4 % (19-41); Mean Corp Hgb Conc 34.2 g/dL (32-36); Mean Corpuscular Hgb 30.8 pg (27.0-32.0); Mean Platelet Vol. 9.3 fl (6.2-12.0); Monocyte# 0.99 X10^3/uL; Monocyte% 7.1 % (0-10); NRBC Flagged by Analyzer 0 % (0-5); Neutrophil % 79.4 % (47-70); Platelet Count 355 K/mm3 (150-450); RBC Distribution Width CV 12.7 % (11.6-14.6); RBC Distribution Width SD 41.6 fl (35.1-43.9); Red Blood Count 4.09 M/mm3 (4.2-5.4); White Blood Count 13.9 K/mm3 (4.4-11.0)
[2021-10-07 08:01] LABS: ALB/GLOB Ratio 0.7 RATIO (0.9-2.4); AST(SGOT) 14 U/L (15-37); Alanine Aminotransfer ALT/SGPT 27 U/L (13-56); Albumin, Serum 3.4 g/dL (3.2-5.0); Alkaline Phosphatase 73 U/L (45-117); Anion Gap 10 (5-15); BUN 11 mg/dL (7-18); BUN/Creat Ratio 13.6 RATIO (10-20); Calcium,Total 9.4 mg/dL (8.5-10.1); Chloride 99 mmol/L (98-107); Creatinine, Serum 0.81 mg/dL (0.55-1.02); EST Glomerular Filtration Rate 77 mL/min (>60); Est Glom Filt Rate - Afr Amer 94 mL/min (>60); Estimated Creatinine Clearance 75.42 ml/min; Globulin 4.6 g/dL (2.2-4.2); Glucose 113 mg/dL (74-106); Lipase 87 U/L (73-393); Potassium 3.6 mmol/L (3.5-5.1); Sodium Level 134 mmol/L (136-145)
[2021-10-07 08:22] LABS: Bacteria 0 SEEN /hpf (None Seen); Mucous, Urine 0 SEEN /hpf (<or=2+); Red Blood Cells-Urine 0 SEEN /hpf (0-5)
[2021-10-07 08:36] LABS: Color, Urine Yellow (Yellow); Glucose, Dipstick Normal (Normal); Ketone-Dipstick 15 mg/dl (Negative); Leukocyte Esterase-Dipstick 25 /ul (Negative); Nitrite-Dipstick Negative (Negative); Occult Blood-Urine Negative /ul (Negative); Protein-Dipstick Negative (Negative); Specific Gravity, Urine 1.005 (1.002-1.030); Urine Bilirubin Dipstick Negative (Negative); Urine Clarity Clear (Clear); Urine Urobilinogen Normal (Normal)
[2021-10-07 08:41] LABS: Squamous Epithelial Cells - UA 0-5 SEEN /hpf (5-10); White Blood Cells 0-5 SEEN /hpf (0-5)
[2021-10-07] MEDS: Ciprofloxacin 400 MG/200 ML BAG 200 MG IV (10:04)
[2021-10-07 10:08] VITALS: BP 111/67; PULSE 80; RESP 16; O2SAT 98
[2021-10-07] MEDS: metroNIDAZOLE 500 MG/100 ML BAG 100 MG IV (11:09)
[2021-10-07 12:18] VITALS: BP 113/74; PULSE 71; RESP 16; O2SAT 97
== END 2021-10-07 12:22 | disposition home or self-care (01) ==
PROVIDERS: Emergency Provider Emergency Medicine; PCP Family Medicine; Visit Provider Emergency Medicine
DX: K57.32 Diverticulitis of large intestine without perforation or abscess without bleeding (principal); G43.909 Migraine, unspecified, not intractable, without status migrainosus; Z79.899 Other long term (current) drug therapy; Z90.49 Acquired absence of other specified parts of digestive tract; K59.09 Other constipation; K42.9 Umbilical hernia without obstruction or gangrene
CPT/HCPCS: 74177; 80053; 81001; 83690; 85025; 96361; 96365; 96368; 96375; 99283; J7030; Q9967; A4216; J0744; J2405

== ENCOUNTER 2023-05-10 16:00 | Outpatient (RCR) | payer OTHER, SELFPAY ==
--- NOTE | 2023-02-20 16:18 | HP.PTEVAL_ITS ---
Patient's Visit Information Visit Information Visit Information: ALMA PEARCE is a 57 year old F referred to Physical Therapy by Dr. Bernabe Kraft MD with a diagnosis of L RCR g-h and biceps debridement 01/22/23. Date of Evaluation: 02/20/23 Physical Therapist: Pal Kamara, DPT, OCS, CSCS Visit Plan Frequency: 2x /Week Duration: 3 Months Plan: 2x/week for 12 weeks overall starting with PROM phase 1 RCR and progressing as tolerated to AAROM in March. Pt may bring family member to learn home PROM. Progress to aROM as appropriate mid to late March and strength in April when tolerated. Ice and scar massage as needed. Subjective Subjective: L RCT and fixed arthroscopically on 01/22/23 with debridement joint and biceps. It was wear and tear. it was bothering her for years prior on and off. 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 working and resting. In sling all day, out for showers. Sleep is Ok in sling in recliner. Will see doctor in March. Will be in sling until mid March. Pain level in last week is increased with activity even know doing R handed. 1-2/10 intermittently. Normally comfortable in sling. Lives with , helps with shirt change, bra snap, drying. [employer] going OK. 6 hrs day instead of 8. Tired and needs ice machine after work day. She is L handed, can write righthanded. Hobbies: camping and has been avoiding. Flower beds look shabby. Precautions: don't use it. Pain L shoulder: Pain Intensity (Out of 10): 0 Pain Intensity Range: 0 and 2 Objective Objective: Dons and dogilbetr sling I. L shoulder incisions are 4 with stitches and mild scar tissue, healed well without signs of redness heat or swelling. PROM L shoulder flexion 100, abduction 90, er 35, IR to 65 at 50 abduction. R shoulder AROM WFL to 160 elevation adn 85 er. elbow AROM is full B but slower on L flexion end range. oprnation and supination and hand are WNL B. Cervical AROM is symmetrically limited and has been due to spinal surgery. scap aROM is full but slower and pulling feeling on L anteriorly. Strenth not tested on L shoulder or elbow, wrist and hand at least 3+/5 Balance/Special Test Scores Quick DASH Score: 79.5450 Goals Goal 1:: ST: PROM 155 elevation and 65 er Goal Time Frame: 2-4 Weeks Goal 2:: ST: sleep without interruption. Goal Time Frame: 2-4 Weeks Goal 3:: LT: AROM 155 elevation L and 70 er adn 80 IR without pain or hesitation Goal Time Frame: 6-8 Weeks Goal 4:: I appropriate HEPO for strength adn ROM when appropriate Goal Time Frame: 8-12 Weeks Goal 5:: Work and ADL including dressing without limitations from L UE Goal Time Frame: 6-8 Weeks Goal 6:: Pt feel 100% back to normal and 14 or less on quickdash Goal Time Frame: 8-12 Weeks Rehabilitation Potential Physical Therapy Diagnosis: s/p L RCR and stiffness, lacking ROM and weakness limiting funciton Rehabilitation Potential: Good Anticipated Interventions Patient/Client Instruction: Educate patient on: Condition and Plan of Care For the Purpose of:: To decrease pain, To increase ROM, To improve nutrient delivery to tissue, To improve muscle performance and motor function and To increase tolerance to activity/condition/position Therapeutic Exercise to Include: Strength training, Postural training, Flexibilty training, Passive ROM and Active ROM For the Purpose of:: To decrease pain, To increase ROM, To improve nutrient de livery to tissue, To increase tolerance to activity/condition/position and To improve ability of physical actions for home/community/work/leisure Manual Therapy Techniques to Include: Mobilization and Passive ROM For the Purpose of:: To decrease pain, To increase ROM and To improve nutrient delivery to tissue Cryotherapy (ice pack, ice massage): Yes For the Purpose of:: To decrease pain and To decrease swelling/inflammation Text: Thank you for the opportunity to evaluate your patient. For Medicare and Medicare HMO plans, please review the plan of care and approve it. It will need to be FAXED BACK to us at [phone] for Medicare purposes. For Medicare only, by signing this I certify the plan of care. Please let me know if there are questions or concerns regarding this plan of care. Physician Signature: Date:
--- NOTE | 2023-04-12 15:47 | HP.PTREVAL ---
Re-Evaluation Intro: Dr. Bernabe Kraft MD, It has been my pleasure to treat ALMA PEARCE over the last 16 visits for L RCR g-h and biceps debridement 01/22/23. Please see the progress note below for an update on the physical therapy plan of care! Subjective Subjective: Better. Lesss pain and more movement. Pain 1/10 at worst this week after exercises for short time. Comfortable at rest. Sleeping well. Saw doctor last week. Can get dressed I but bra still challenging, even hooking and sliding. working is not a problem. Activities are close to normal. Sweeps well but lower usage of L. Objective Objective/Function: 140 AROM , 160 PROM in elevation, 50 er and 60 pa Overall excellent PROM, AROM improving and needs to be stronger.ssivley, not alot of pain. strength er L 3+, ir 4, flexiona nd abd 3+ with scapular compensation. Goals appropriate and fair prognosis. Plan Plan Plan: 1-2x/week x 4 for strength progression, next session phase 3 TB to HEP, progrfess to elevation and WB as able. Balance/Gait/Functional tests Balance/Special Test Scores Quick DASH Score: 13.6350 Goals Goals Goal 1:: ST: PROM 155 elevation and 65 er Goal Time Frame: 2-4 Weeks Goal Progress: Goal Met Goal 2:: ST: sleep without interruption. Goal Time Frame: 2-4 Weeks Goal Progress: Goal Met Goal 3:: LT: AROM 155 elevation L and 70 er adn 80 IR without pain or hesitation Goal Time Frame: 6-8 Weeks Goal Progress: Progressing Goal 4:: I appropriate HEPO for strength adn ROM when appropriate Goal Time Frame: 8-12 Weeks Goal Progress: ROM Goal 5:: Work and ADL including dressing without limitations from L UE Goal Time Frame: 6-8 Weeks Goal Progress: good except bra Goal 6:: Pt feel 100% back to normal and 14 or less on quickdash Goal Time Frame: 8-12 Weeks Goal Progress: 85 Anticipated Interventions Anticipated Interventions Patient/Client Instruction: Educate patient on: Condition and Plan of Care For the Purpose of:: To decrease pain, To increase ROM, To improve nutrient delivery to tissue, To improve muscle performance and motor function and To increase tolerance to activity/condition/position Therapeutic Exercise to Include: Strength training, Postural training, Flexibilty training, Passive ROM and Active ROM For the Purpose of:: To decrease pain, To increase ROM, To improve nutrient delivery to tissue, To increase tolerance to activity/condition/position and To improve ability of physical actions for home/community/work/leisure Manual Therapy Techniques to Include: Mobilization and Passive ROM For the Purpose of:: To decrease pain, To increase ROM and To improve nutrient delivery to tissue Cryotherapy (ice pack, ice massage): Yes For the Purpose of:: To decrease pain and To decrease swelling/inflammation Re-Evaluation Ending Re-evaluation ending: Please do not hesitate to contact me at [phone] by phone or if you have questions or concerns regarding this new plan of care! Sincerely, Pal Kamara, DPT, OCS, CSCS
--- NOTE | 2023-05-10 16:25 | HP.PTREVAL_ITS ---
Re-Evaluation Intro: Dr. Bernabe Kraft MD, It has been my pleasure to treat ALMA PEARCE over the last 20 visits for L RCR g-h and biceps debridement 01/22/23. Please see the progress note below for an update on the physical therapy plan of care! Subjective Subjective: A little sore up to 3/10 Objective Objective/Function: AROM to 135 elevation, weak at end range and PROM to 155. er 80, ir to L4 Functional strength at 4/5 in flexion, abd, er , ir just weak in higher up flexion levels. Overall doing very well adn improving in strength. Plan Plan Plan: Pt to doctor next week, would like to see 2-3 more visits to progress HEP but patient is very funcitonal and will talk this over with doctor. Balance/Gait/Functional tests Balance/Special Test Scores Quick DASH Score: 2.2725 Goals Goals Goal 1:: ST: PROM 155 elevation and 65 er Goal Time Frame: 2-4 Weeks Goal Progress: Goal Met Goal 2:: ST: sleep without interruption. Goal Time Frame: 2-4 Weeks Goal Progress: Goal Met Goal 3:: LT: AROM 155 elevation L and 70 er adn 80 IR without pain or hesitation Goal Time Frame: 6-8 Weeks Goal Progress: Progressing Goal 4:: I appropriate HEPO for strength adn ROM when appropriate Goal Time Frame: 8-12 Weeks Goal Progress: Goal Met Goal 5:: Work and ADL including dressing without limitations from L UE Goal Time Frame: 6-8 Weeks Goal Progress: good except bra Goal 6:: Pt feel 100% back to normal and 14 or less on quickdash Goal Time Frame: 8-12 Weeks Goal Progress: 85 Anticipated Interventions Anticipated Interventions Patient/Client Instruction: Educate patient on: Condition and Plan of Care For the Purpose of:: To decrease pain, To increase ROM, To improve nutrient de livery to tissue, To improve muscle performance and motor function and To increase tolerance to activity/condition/position Therapeutic Exercise to Include: Strength training, Postural training, Flexibilty training, Passive ROM and Active ROM For the Purpose of:: To decrease pain, To increase ROM, To improve nutrient delivery to tissue, To increase tolerance to activity/condition/position and To improve ability of physical actions for home/community/work/leisure Manual Therapy Techniques to Include: Mobilization and Passive ROM For the Purpose of:: To decrease pain, To increase ROM and To improve nutrient delivery to tissue Cryotherapy (ice pack, ice massage): Yes For the Purpose of:: To decrease pain and To decrease swelling/inflammation Re-Evaluation Ending Re-evaluation ending: Please do not hesitate to contact me at [phone] by phone or if you have questions or concerns regarding this new plan of care! Sincerely, Pal Kamara, DPT, OCS, CSCS
--- NOTE | 2023-07-13 14:35 | HP.PT.NRP ---
Patient Information Patient Information: ALMA PEARCE was seen in my office for initial evaluation on 02/20/23. The following Plan of Care was established for this patient: POC Established Initial Frequency: 2x /Week Initial Duration: 3 Months Anticipated Interventions Patient/Client Instruction: Educate patient on: Condition and Plan of Care For the Purpose of:: To decrease pain, To increase ROM, To improve nutrient delivery to tissue, To improve muscle performance and motor function and To increase tolerance to activity/condition/position Therapeutic Exercise to Include: Strength training, Postural training, Flexibilty training, Passive ROM and Active ROM For the Purpose of:: To decrease pain, To increase ROM, To improve nutrient delivery to tissue, To increase tolerance to activity/condition/position and To improve ability of physical actions for home/community/work/leisure Manual Therapy Techniques to Include: Mobilization and Passive ROM For the Purpose of:: To decrease pain, To increase ROM and To improve nutrient delivery to tissue Cryotherapy (ice pack, ice massage): Yes For the Purpose of:: To decrease pain and To decrease swelling/inflammation Last Seen Last Seen: This patient was last seen in our office 05/10/23. Pertinent comments regarding their Physical therapy will appear below: Pt seen 20 visits of POC and was 85% better. Plan was to see her 2 more visits as needed after doctor visit but she did not return. i will discontinue at this time. At this point I will be discontinuing this patient from physical therapy. I would be happy to see this patient again in the future if found appropriate by the physician. Thank you! Pal Kamara, DPT, OCS, CSCS Balance/Gait/Functional tests Balance/Special Test Scores Quick DASH Score: 2.2728
== END 2023-05-10 19:00 | disposition home or self-care (01) ==
LOC: PT 16:00
PROVIDERS: PCP Family Medicine; Referring Provider Orthopaedic Surgery Sports Medicine; Visit Provider Orthopaedic Surgery Sports Medicine
DX: M75.102 Unspecified rotator cuff tear or rupture of left shoulder, not specified as traumatic (principal)
CPT/HCPCS: 97014; 97110; 97140; 97161; 97530; G0283

== ENCOUNTER 2024-04-07 16:17 | Inpatient (IN) | payer OTHER, SELFPAY ==
[2024-04-07] VITALS (7 sets, daily range): BP systolic 132–148; BP diastolic 62–99; PULSE 77–94; RESP 15–21; TEMP 36.6–37.1; O2SAT 92–99; BMI 31.5; BMI 31.1; BMI 31.6
--- NOTE | 2024-04-07 16:50 | CT_ITS ---
EXAM: CT ABDOMEN AND PELVIS WITH INTRAVENOUS CONTRAST CLINICAL INDICATION: Colonoscopy today, abdominal pain TECHNIQUE: Helically acquired images were obtained of the abdomen and pelvis with intravenous contrast. This CT exam was performed using one or more of the following dose reduction techniques: automated exposure control, adjustment of the mA and/or kV according to patient size, and/or use of iterative reconstruction technique. CONTRAST: IV 100mL [id number]-300 COMPARISON: 10/07/2021 FINDINGS: LOWER THORAX: Unremarkable. Lung bases are clear. No cardiomegaly. No significant pericardial effusion. ABDOMEN: LIVER: Unremarkable. Homogeneous. No focal mass. GALLBLADDER AND BILE DUCTS: Unremarkable. No calcified gallstones. No gallbladder distention or wall edema. No intra- or extrahepatic biliary ductal dilation. PANCREAS: Unremarkable. No focal cystic or solid mass. SPLEEN: Unremarkable. Normal size without focal cystic or solid mass. ADRENALS: Unremarkable. No nodules. KIDNEYS AND URETERS: Unremarkable. Normal renal size and position. No hydronephrosis. STOMACH AND BOWEL: There is marked gaseous distention of colon due to recent colonoscopy. No focal inflammatory change. PELVIS: APPENDIX: No evidence of acute appendicitis. BLADDER: Unremarkable. REPRODUCTIVE: Unremarkable as visualized. No mass. ABDOMEN and PELVIS: INTRAPERITONEAL SPACE: Unremarkable. No ascites or other fluid collection. No free air. BONES/JOINTS: There is hardware in the thoracic spine due to scoliosis. No suspicious lytic or blastic abnormality. SOFT TISSUES: Unremarkable. No discrete abdominal or pelvic wall hernia. VASCULATURE: Unremarkable. Abdominal aorta is non-dilated. LYMPH NODES: Unremarkable. No enlarged lymph nodes. CT/Abdomen/Pelvis W IV Cont ONLY IMPRESSION: Gaseous distention of the colon due to recent colonoscopy. No other acute abnormalities are identified. Electronically Signed: Jad Segovia MD at 18:58 EST ,
--- NOTE | 2024-04-07 17:07 | EX.ED.DYSGE1 ---
HPI History of Present Illness Chief Complaint: Abd Pain Narrative Narrative: Chief complaint and HPI: Abdominal pain. 58-year-old female with history of constipation presents for evaluation of abdominal pain after colonoscopy. Patient states that she had a colonoscopy today with Dr. Huffman. She states that she had difficulty finishing the prep yesterday. Per patient's daughter in the room there was 2 areas of inflammation that were biopsied but otherwise was unremarkable. Patient states since the procedure today she has had continuous abdominal pain and bloating. She endorses nausea and vomiting. Decreased p.o. intake. States she is passing a little flatulence. Patient called Dr. Huffman's office today and they recommended her being evaluated in the emergency department. Denies any fever, chills, shortness of breath, chest pain, dysuria, diarrhea. Review of systems: See HPI Medications: As listed on the chart Allergies: As listed on the chart PFSH: Per chart Vital signs: As listed on the chart. Reviewed. Physical exam: Gen: A&O x3 Head: Normocephalic, atraumatic Eyes: No sclera icterus, conjunctiva clear ENT: Dry mucous membranes Neck: Trachea midline, No JVD CV: RRR, no murmurs, no peripheral edema Resp: Lungs CTA BL, no w/r/c GI: Abd soft, distended, tender to palpation diffusely, no r/r/g Musc: Full ROM, no deformity Skin: Warm, dry Neuro: Alert, oriented, grossly intact, sensation intact Psych: Cooperative, appropriate mood and affect [facility] Medical History (Updated 10/15/21 @ 00:01 by Aleja Jackson) Diverticulosis Migraines Home Medications ?Medication ?Instructions ?Recorded ?Last Taken ?Type albuterol sulfate 90 mcg/actuation 1 puff inhalation Q4H PRN PRN Sob 08/09/16 Unknown History aerosol inhaler (Ventolin HFA) &/Or Wheezing omeprazole 20 mg capsule,delayed 20 mg PO DAILY 08/09/16 08/11/16 History release lisinopril 10 mg tablet 10 mg PO DAILY ##0 08/14/16 08/11/16 Rx triamterene 37.5 1 cap PO DAILY ##0 08/14/16 08/11/16 Rx mg-hydrochlorothiazide 25 mg capsule duloxetine 60 mg capsule,delayed 60 mg PO DAILY 10/07/21 Unknown History release metronidazole 500 mg tablet 500 mg PO BID #20 tabs 10/07/21 Unknown Rx polyethylene glycol 3350 17 gram 17 g PO DAILY 10/07/21 Unknown History oral powder packet (Miralax) lubiprostone 8 mcg capsule 8 mcg PO BID 04/07/24 Unknown History trazodone 100 mg tablet 100 mg PO QHS 04/07/24 Unknown History Allergy/AdvReac Type Severity Reaction Status Date / Time bupropion (From Wellbutrin) Allergy I LOSE MY Verified 04/07/24 16:19 HEARING AND SMELL metronidazole (From Flagyl) Allergy Itching Verified 04/07/24 16:31 Tetanus Vaccines and Toxoid AdvReac Vomiting Verified 04/07/24 16:19 (Tetanus Vaccines & Toxoid) Surgical History (Updated 10/07/21 @ 07:[address] Keny Marino MD) History of herniorrhaphy History of History of appendectomy H/O: hysterectomy History of cholecystectomy H/O spinal fusion Social History Smoking Status: Never smoker EXAM Physical Exam Const Vital Signs: 04/07/24 16:19 04/07/24 16:23 04/07/24 16:36 Temperature 98.4 F 98.8 F 98.8 F Temperature Source Oral Oral Oral Pulse Rate 94 89 77 Respiratory Rate 18 18 18 Blood Pressure 145/90 H 148/90 H 144/99 H Blood Pressure Mean 108 109 114 Pulse Ox 95 93 93 Oxygen Delivery Method Room Air Room Air Room Air 04/07/24 18:17 04/07/24 20:15 04/07/24 21:05 Temperature 97.9 F Temperature Source Pulse Rate 89 93 79 Respiratory Rate 16 18 21 H Blood Pressure 132/62 H 139/93 H Blood Pressure Mean 85 108 Pulse Ox 98 97 92 Oxygen Delivery Method Room Air MDM MDM MDM Narrative Medical decision making narrative: 58-year-old female presents for evaluation of abdominal pain and bloating after colonoscopy. She had a colonoscopy today with Dr. Huffman. On chart review, I was unable to find the procedure note from today. Differential diagnosis includes but is not limited to irritation from bowel gas, ileus, electrolyte abnormality, bowel perforation, obstruction. NS bolus, Zofran, morphine ordered for symptoms. Abdominal pain workup ordered including CT abdomen and pelvis. CBC without leukocytosis or anemia. CMP unremarkable without KARTIK or transaminitis. Mild hypokalemia of 3.3. Lipase unremarkable. Lactic acid unremarkable. CT abdomen pelvis shows gaseous distention of the colon due to recent colonoscopy. No other acute abnormalities. No perforation or inflammation. On reevaluation, patient states her pain is not controlled. She is already required 8 mg of morphine. She is requesting more pain medication. Given her significant pain, Dr. Huffman was consulted. I spoke with Dr. Munoz who is covering for Dr. Huffman. Recommendation is that the bowel gas will slowly make its way out of the GI system. Could place possible rectal tube for decompression. Patient and daughter were updated of all the results as well as recommendations by Dr. Munoz. Patient states that her pain has not controlled and that she does not feel that she can discharge home at this time. Due to her intractable abdominal pain, hospitalist service was contacted and patient was discussed with Dr. Hsieh. He accepted observation admission for pain control. Patient and daughter confirmed understanding of the plan. Impression: 1. Intractable abdominal pain after colonoscopy 2. Bowel distention from recent colonoscopy Lab Data Labs: Laboratory Results - last 24 hr 04/07/24 17:05 WBC 9.8 RBC 4.15 L Hgb 13.0 Hct 38.0 MCV 91.6 MCH 31.3 MCHC 34.2 RDW Std Deviation 40.9 RDW Coeff of Rossy 12.3 Plt Count 278 MPV 9.8 Immature Gran % (Auto) 0.600 Neut % (Auto) 82.8 H Lymph % (Auto) 10.[address] [place] % (Auto) 5.6 Eos % (Auto) 0.1 Baso % (Auto) 0.5 Absolute Neuts (auto) 8.1 H Absolute Lymphs (auto) 1.02 Nucleated RBC % 0 Sodium 140 Potassium 3.3 L Chloride 106 Carbon Dioxide 28.0 Anion Gap 6 BUN 13 Creatinine 0.86 Estim Creat Clear Calc 81.30 Est GFR (MDRD) Af Amer 87 Est GFR (MDRD) Non-Af 72 BUN/Creatinine Ratio 15.2 Glucose 132 H Lactic Acid 1.1 Calcium 9.2 Total Bilirubin 0.40 AST 26 ALT 32 Alkaline Phosphatase 58 Total Protein 7.4 Albumin 3.7 Globulin 3.7 Albumin/Globulin Ratio 1.0 Lipase 22 Radiography Diagnostic Testing: Clinical Impression(s) from Imaging Studies Abdomen/Pelvis CT 04/07/24 16:50 IMPRESSION: Gaseous distention of the colon due to recent colonoscopy. No other acute abnormalities are identified. Electronically Signed: Jad Segovia MD at 18:58 EST Reading Location ID and State: [facility] / [place] Tel , Service support , Discharge Plan Triage Chief Complaint: Abd Pain ED Provider: Dion Grace Dx/Rx/DC Orders Prescriptions: No Action omeprazole 20 MG capsule 20 mg PO DAILY Patient Comments: acid reflux albuterol sulfate [Ventolin HFA] 1 INHALER inhaler 1 puff inhalation Q4H PRN PRN (Reason: Sob &/Or Wheezing) Patient Comments: breathing triamterene-hydrochlorothiazid 1 CAP capsule 1 cap PO DAILY Qty: 0 0RF Patient Comments: blood pressure lisinopril 10 MG tablet 10 mg PO DAILY Qty: 0 0RF Patient Comments: blood pressure polyethylene glycol 3350 [Miralax] 17 gram Powder In Packet 17 g PO DAILY duloxetine 60 mg capsule,delayed release(DR/EC) 60 mg PO DAILY metronidazole [metronidazole] 500 MG tablet 500 mg PO BID Qty: 20 0RF trazodone 100 mg tablet 100 mg PO QHS lubiprostone 8 mcg capsule 8 mcg PO BID Primary Care Provider: Simone Posey Referrals: Simone Posey MD [Primary Care Provider] - Print Language: Azeri
[2024-04-07 17:17] LABS: Absolute Lymphocyte Count 1.02 X10^3/uL (0.83-4.51); Absolute Neutrophil Count 8.1 X10^3/uL (2.0-7.7); Basophil# 0.05 X10^3/uL; Basophil% 0.5 % (0-1); Eosinophil# 0.01 X10^3/uL; Eosinophils% 0.1 % (0-5); Lymphocyte # 1.02 X10^3/ul (0.83-4.51); Lymphocyte % 10.4 % (19-41); Mean Corp Hgb Conc 34.2 g/dL (32-36); Mean Corpuscular Hgb 31.3 pg (27.0-32.0); Mean Corpuscular Volume 91.6 fL (81-99); Mean Platelet Vol. 9.8 fl (6.2-12.0); Monocyte# 0.55 X10^3/uL; Monocyte% 5.6 % (0-10); NRBC Flagged by Analyzer 0 % (0-5); Neutrophil # 8.12 X10^3/uL (2.7-7.7); Neutrophil % 82.8 % (47-70); Platelet Count 278 K/mm3 (150-450); RBC Distribution Width CV 12.3 % (11.6-14.6); RBC Distribution Width SD 40.9 fl (35.1-43.9); Red Blood Count 4.15 M/mm3 (4.2-5.4); White Blood Count 9.8 K/mm3 (4.4-11.0)
[2024-04-07] MEDS: Ondansetron 4 MG/2 ML Vial IV ×2 (17:22→22:34)
[2024-04-07] MEDS: Morphine 4 MG/ML Syringe IV ×2 (17:22→19:31)
[2024-04-07] MEDS: 0.9% Normal Saline (1000mL) 1,000 ML 999 ML IV (17:22)
[2024-04-07 17:41] LABS: AST(SGOT) 26 U/L (15-37); Alanine Aminotransfer ALT/SGPT 32 U/L (13-56); Albumin, Serum 3.7 g/dL (3.2-5.0); Alkaline Phosphatase 58 U/L (45-117); Anion Gap 6 (5-15); BUN 13 mg/dL (7-18); BUN/Creat Ratio 15.2 RATIO (10-20); Calcium,Total 9.2 mg/dL (8.5-10.1); Chloride 106 mmol/L (98-107); Creatinine, Serum 0.86 mg/dL (0.55-1.02); EST Glomerular Filtration Rate 72 mL/min (>60); Est Glom Filt Rate - Afr Amer 87 mL/min (>60); Globulin 3.7 g/dL (2.2-4.2); Glucose 132 mg/dL (74-106); Lipase 22 U/L (13-75); Potassium 3.3 mmol/L (3.5-5.1); Protein, Total 7.4 g/dL (6.4-8.2); Sodium Level 140 mmol/L (136-145)
[2024-04-07 18:28] LABS: Lactic Acid 1.1 mmol/L (0.4-1.9)
--- NOTE | 2024-04-07 20:39 | HP.PCM.HOS_ITS ---
[facility] - General General Date of Admission: 04/07/24 Date of Service: 04/07/24 Chief Complaint: Abdominal Pain, Bloating, Nausea and Vomiting. HPI Narrative ALMA BLEVINS, is a 58 F with a past medical history of essential hypertension, obesity; with BMI of 31.2 this admission, IBS of constipation-type; on Lubiprostone, GERD, history of diverticulosis, history of hernia; s/p repair, history of cholecystectomy, history of appendectomy, history of hysterectomy, remote history of , history of spinal fusion, history of migraine headaches, depression and recent history of colonoscopy who presents to [facility] ER complaining of abdominal pain, bloating, nausea and vomiting. Ms. Blevins reports she underwent a colonoscopy done by Dr. Huffman earlier today with continuous abdominal pain and bloating since that time with very little flatus. According to the records there were 2 areas biopsied due to inflammation but the scope was otherwise unremarkable. She claims she had difficulty finishing her bowel prep yesterday and she admits to chronic severe bloating after eating refractory to treatment with prn simethicone but she denies other recent illness, medication changes or trauma to her abdomen. She also admits to associated nausea with bilious emesis and decreased oral intake. She contacted Dr. Huffman's office about her symptoms and she was then instructed to come in to the ER for further evaluation and treatment. She denies related fever, chills, diarrhea, blood in stools or vomitus, dysuria, chest pain or SOB. In the ER her CT scan of the abdomen and pelvis was negative for acute pathologic findings but with intractable abdominal pain, nausea and vomiting after recent colonoscopy with laboratory evidence of mild hypokalemia of 3.3 mmol/L present on admission and she was then admitted to the general medical floor under observation status for ongoing care for a stay that is expected to be less than 2 midnights. [facility] Medical History (Updated 04/08/24 @ 04:[address] Krishna Mckeon, ) Hearing loss, left Depression Chronic pain GERD (gastroesophageal reflux disease) Irregular heart beat Migraines Diverticulosis Migraines Home Medications ?Medication ?Instructions ?Recorded ?Last Taken ?Type albuterol sulfate 90 mcg/actuation 1 puff inhalation Q4H PRN PRN Sob 08/09/16 Unknown History aerosol inhaler (Ventolin HFA) &/Or Wheezing omeprazole 20 mg capsule,delayed 20 mg PO DAILY 08/09/16 04/06/24 History release lisinopril 10 mg tablet 10 mg PO DAILY ##0 08/14/16 04/07/24 Rx triamterene 37.5 1 cap PO DAILY ##0 08/14/16 04/06/24 Rx mg-hydrochlorothiazide 25 mg capsule duloxetine 60 mg capsule,delayed 60 mg PO DAILY 10/07/21 04/06/24 History release metronidazole 500 mg tablet 500 mg PO BID #20 tabs 10/07/21 Unknown Rx polyethylene glycol 3350 17 gram 17 g PO DAILY 10/07/21 04/04/24 History oral powder packet (Miralax) lubiprostone 8 mcg capsule 8 mcg PO BID 04/07/24 04/03/24 History trazodone 100 mg tablet 100 mg PO QHS 04/07/24 04/06/24 History Allergy/AdvReac Type Severity Reaction Status Date / Time bupropion (From Wellbutrin) Allergy I LOSE MY Verified 04/07/24 16:19 HEARING AND SMELL metronidazole (From Flagyl) Allergy Itching Verified 04/07/24 16:31 Tetanus Vaccines and Toxoid AdvReac Vomiting Verified 04/07/24 16:19 (Tetanus Vaccines & Toxoid) Surgical History History of herniorrhaphy History of History of appendectomy H/O: hysterectomy History of cholecystectomy H/O spinal fusion Social History Smoking Status: Never smoker ROS ROS Narrative Review of Systems: Constitutional: Patient denies fever or chills. Eyes: Patient denies changes in vision or discharge from eyes. ENT: Patient denies runny nose, sore throat or ear pain. Resp: Patient denies SOB or cough. CV: Patient denies chest pain, palpitations or heart racing. GI: Patient admits to severe abdominal pain with bloating and intractable nausea and vomiting as per HPI. : Patient denies dysuria or hematuria. MSK: Patient denies arthralgias and myalgias. Skin: Patient denies rash, abscess or jaundice. Psych: Patient admits to heightened anxiety due to acute illness but she denies SI or HI. Neuro: Patient denies headache, paresthesias or focal neurologic deficits. Allergy: Patient denies lip swelling, tongue swelling or urticaria. Hematology: Patient denies easy bleeding or easy bruisability. Endocrinology: Patient denies polyuria, polydipsia and polyphagia. 14 point ROS otherwise negative except for positives noted above in HPI. Vital Signs Vital Signs Vital Signs: 04/07/24 16:19 04/07/24 16:23 04/07/24 16:36 Temperature 98.4 F 98.8 F 98.8 F Temperature Source Oral Oral Oral Pulse Rate 94 89 77 Respiratory Rate 18 18 18 Blood Pressure 145/90 H 148/90 H 144/99 H Blood Pressure Mean 108 109 114 Pulse Ox 95 93 93 Oxygen Delivery Method Room Air Room Air Room Air 04/07/24 18:17 04/07/24 20:15 Temperature Temperature Source Pulse Rate 89 93 Respiratory Rate 16 18 Blood Pressure 132/62 H Blood Pressure Mean 85 Pulse Ox 98 97 Oxygen Delivery Method Room Air Weight Weight: 199 lb 4.766 oz Body Mass Index (BMI) 31.1 Physical Exam Const alert and oriented x3 Constitutional Narrative: Moderate distress and anxiety noted. General Appearance: cooperative HEENT normocephalic, head/scalp atraumatic, hearing grossly normal bilaterally and moist oral mucous membranes Eyes PERRL and EOMs intact bilaterally Neck no lymphadenopathy and supple Resp normal respiratory effort, no retractions, no use of accessory muscles and clear to auscultation bilaterally Cardio regular rate and regular rhythm GI normal to inspection, nondistended, normoactive bowel sounds, soft to palpation, non-tender and non-distended Extremity normal to inspection and full ROM Skin Skin Narrative: Patient hs no evidence of rash, abscess or jaundice. Neuro oriented x3, CN's II-XII intact bilaterally, moves all extremities and no focal motor deficits Sensorium / Orientation: awake, alert, oriented to person, oriented to place and oriented to time Speech: speech normal Psych Mood & Affect: anxious Results Medical Records Data Attestation: I reviewed the patient's medical records Lab / Micro Data Attestation: I reviewed the patient's lab results. 04/07/24 17:05 04/07/24 17:05 Labs: Laboratory Results - last 24 hr 04/07/24 17:05: WBC 9.8, RBC 4.15 L, Hgb 13.0, Hct 38.0, MCV 91.6, MCH 31.3, MCHC 34.2, RDW Std Deviation 40.9, RDW Coeff of Rossy 12.3, Plt Count 278, MPV 9.8, Immature Gran % (Auto) 0.600, Neut % (Auto) 82.8 H, Lymph % (Auto) 10.4 L, [place] % (Auto) 5.6, Eos % (Auto) 0.1, Baso % (Auto) 0.5, Absolute Neuts (auto) 8.1 H, Absolute Lymphs (auto) 1.02, Nucleated RBC % 0, Sodium 140, Potassium 3.3 L, Chloride 106, Carbon Dioxide 28.0, Anion Gap 6, BUN 13, Creatinine 0.86, Estim Creat Clear Calc 81.30, Est GFR (MDRD) Af Amer 87, Est GFR (MDRD) Non-Af 72, BUN/Creatinine Ratio 15.2, Glucose 132 H, Lactic Acid 1.1, Calcium 9.2, Total Bilirubin 0.40, AST 26, ALT 32, Alkaline Phosphatase 58, Total Protein 7.4, Albumin 3.7, Globulin 3.7, Albumin/Globulin Ratio 1.0, Lipase 22 Imaging Radiology Impression Abdomen/Pelvis CT 04/07/24 16:50 IMPRESSION: Gaseous distention of the colon due to recent colonoscopy. No other acute abnormalities are identified. Electronically Signed: Jad Segovia MD at 18:58 EST , Assessment & Plan Assessment/Plan (1) Intractable nausea and vomiting: (2) Abdominal pain: QUALIFIERS: Abdominal location: generalized Qualified Code(s): R 10.84 - Generalized abdominal pain (3) Hypokalemia: (4) IBS (irritable bowel syndrome): QUALIFIERS: Irritable bowel syndrome type: unspecified Qualified Code(s): K58.9 - Irritable bowel syndrome, unspecified (5) GERD (gastroesophageal reflux disease): QUALIFIERS: Esophagitis presence: esophagitis presence not specified Qualified Code(s): K21.9 - Gastro-esophageal reflux disease without esophagitis (6) Essential hypertension: (7) Obesity (BMI 30.0-34.9): PLAN: Plan 1. Intractable abdominal pain, nausea and vomiting after recent colonoscopy - Admit to general medical floor under observation status. Give IV Zofran prn for nausea and vomiting. Place Scopolamine patch with nausea and vomiting not controlled after standard antiemetics. Give Protonix 40 mg IV daily. 2. Mild hypokalemia of 3.3 mmol/L present on admission complicating #1 - Give supplemental IV and oral KCl and then recheck level in the AM to ensure correction. 3. IBS of constipation-type; on Lubiprostone - Resume Lubiprostone as before. 4. GERD - Continue Protonix IV until patient can tolerate oral intake. 5. Essential hypertension - Restart home regimen plus give prn IV Hydralazine for systolic blood pressure > 160 mmHg. 6. Obesity; with BMI of 31.2 this admission - Weight loss recommended. Check TSH. This complicates her case. 7. History of diverticulosis - Stable. 8. History of hernia; s/p repair - Noted. 9. History of cholecystectomy - Noted. 10. History of appendectomy - Noted. 11. History of hysterectomy - Noted. 12. Remote history of - Noted. 13. History of spinal fusion - Noted. 14. History of migraine headaches - Stable with no complaint of headache at this time. 15. Depression - Continue Duloxetine and Trazodone as previous. 16. DVT prophylaxis - Lovenox 40 mg sq daily. Total time: Approximately 70 minutes. Charges/Coding Visit Charges OBSV E&M: 68230 Observ/hosp same date L2
--- NOTE | 2024-04-07 21:10 | ED.RN ---
Oxygen dropped to 72% while sleeping, pt states she has sleep apnea history, 2L NC applied.
[2024-04-07] MEDS: Morphine 2 MG/ML Syringe IV (22:34)
[2024-04-07] MEDS: Pantoprazole Sodium 40 MG in 0.9% Normal Saline (100mL MB+) 100 ML 330 MG IV (22:34)
[2024-04-07] MEDS: traZODone 100 MG Tablet PO (22:36)
[2024-04-07] MEDS: Potassium Chloride Oral Tablet 20 MEQ 60 MEQ PO (22:54)
[2024-04-07] MEDS: KCL 20MEQ in 0.9% NS 20 MEQ/1,000 ML IV.SOLN. 100 MEQ IV (23:01)
[2024-04-08] MEDS: Scopolamine 1mg/72hr Patch 1 PATCH TD (01:55)
[2024-04-08] MEDS: Calcium Carbonate 500 MG Tablet 1000 MG PO (01:56)
[2024-04-08 06:00] VITALS: BMI 31.6
[2024-04-08 06:40] VITALS: BP 133/72; PULSE 83; RESP 16; TEMP 36.7; O2SAT 94
[2024-04-08] MEDS: Ondansetron 4 MG/2 ML Vial IV ×2 (06:45→20:02)
[2024-04-08] MEDS: Morphine 2 MG/ML Syringe IV (06:46)
--- NOTE | 2024-04-08 07:08 | CPS ---
SMI and Pep device placed at bedside. Pt nauseated at this time. Will check back later to start.
[2024-04-08 08:19] LABS: Absolute Lymphocyte Count 1.48 X10^3/uL (0.83-4.51); Absolute Neutrophil Count 6.1 X10^3/uL (2.0-7.7); Basophil# 0.06 X10^3/uL; Basophil% 0.7 % (0-1); Eosinophil# 0.02 X10^3/uL; Eosinophils% 0.2 % (0-5); Hematocrit 37.1 % (37-47); Lymphocyte # 1.48 X10^3/ul (0.83-4.51); Lymphocyte % 17.8 % (19-41); Mean Corp Hgb Conc 32.3 g/dL (32-36); Mean Corpuscular Hgb 30.7 pg (27.0-32.0); Mean Corpuscular Volume 94.9 fL (81-99); Mean Platelet Vol. 9.5 fl (6.2-12.0); Monocyte# 0.67 X10^3/uL; Monocyte% 8.1 % (0-10); NRBC Flagged by Analyzer 0 % (0-5); Neutrophil # 6.06 X10^3/uL (2.7-7.7); Neutrophil % 72.8 % (47-70); Platelet Count 268 K/mm3 (150-450); RBC Distribution Width CV 12.6 % (11.6-14.6); RBC Distribution Width SD 43.8 fl (35.1-43.9); Red Blood Count 3.91 M/mm3 (4.2-5.4); White Blood Count 8.3 K/mm3 (4.4-11.0)
[2024-04-08 09:26] LABS: ALB/GLOB Ratio 0.9 RATIO (0.9-2.4); AST(SGOT) 23 U/L (15-37); Alanine Aminotransfer ALT/SGPT 25 U/L (13-56); Albumin, Serum 3.2 g/dL (3.2-5.0); Alkaline Phosphatase 54 U/L (45-117); Anion Gap 7 (5-15); BUN 14 mg/dL (7-18); BUN/Creat Ratio 17.5 RATIO (10-20); Calcium,Total 8.6 mg/dL (8.5-10.1); Chloride 111 mmol/L (98-107); EST Glomerular Filtration Rate 78 mL/min (>60); Est Glom Filt Rate - Afr Amer 94 mL/min (>60); Estimated Creatinine Clearance 88.04 ml/min; Globulin 3.5 g/dL (2.2-4.2); Glucose 97 mg/dL (74-106); Magnesium 2.3 mg/dL (1.6-2.6); Phosphorus 2.5 mg/dL (2.5-4.9); Potassium 3.9 mmol/L (3.5-5.1); Protein, Total 6.7 g/dL (6.4-8.2); Sodium Level 142 mmol/L (136-145)
[2024-04-08 10:19] VITALS: BP 94/54; PULSE 77; RESP 16; TEMP 37.2; O2SAT 97
[2024-04-08 10:22] VITALS: PULSE 77; O2SAT 97
[2024-04-08] MEDS: DULoxetine Hcl 60 MG Capsule PO (10:35)
[2024-04-08] MEDS: Enoxaparin 40 MG/0.4 ML Syringe SC (10:39)
[2024-04-08] MEDS: Triamterene 37.5MG/Hctz 25MG Capsule 1 CAP PO (10:39)
[2024-04-08] MEDS: Polyethylene Glycol 3350 17 GM PACKET PO (10:40)
[2024-04-08] MEDS: Lactobacillis Acidophilus 1 CAP PO ×4 (11:13→20:43)
[2024-04-08] MEDS: Lisinopril 10 MG Tablet PO (11:14)
[2024-04-08] MEDS: Pantoprazole Sodium 40 MG in 0.9% Normal Saline (100mL MB+) 100 ML 330 MG IV (11:15)
[2024-04-08] MEDS: LUBIPROSTONE 8 MCG CAPSULE PO ×2 (11:15→17:11)
[2024-04-08] MEDS: Senna Tablet 1 TABLET PO ×2 (11:38→20:43)
[2024-04-08] MEDS: SimETHICONE 80 MG Chewable Tablet PO (11:38)
--- NOTE | 2024-04-08 13:34 | CHAPLAIN ---
Type of Pastoral Visit _x__ Initial Visit ___ Follow-up Visit ___ On-call Visit ___ General Patient Visit ___ Spiritual Assessment ___ Family Conference ___ Bereavement ___ Rapid Response ___ Code Blue ___ Other (describe below) Pastoral Care Referral From _x__ Patient ___ Family ___ Nurse ___ Physician ___ Alum Plant Supervisor ___ [place] ___ Other (describe below) Sacrament/Intervention _x__ Active listening ___ Anointing ___ Gnosticist ___ Bereavement ___ Communion _x__ Ruby exploration ___ _x__ Life review _x__ Prayer ___ Reconciliation ___ Sacrament of Sick ___ Supportive presence ___ Wedding ___ Other (describe below) Pastoral Comments patient is welcoming and admits to feelings of frustration due to ongoing problem with slow progress; pt is getting answers and some interventions that are helpful and that is making a difference; pt speaks of her family, work, and her ruby; pt's ruby is what gets me through this and her past experiences with an ill daughter reminds her of the goodness of God; pt welcomes prayer for support as well
--- NOTE | 2024-04-08 15:03 | PN.HOSP_ITS ---
Reason for Visit Reason for Visit: Diagnoses Obesity, class 1 (04/07/24) Hypokalemia (04/07/24) Essential (primary) hypertension (04/07/24) Gastro-esophageal reflux disease without esophagitis (04/07/24) Irritable bowel syndrome, unspecified (04/07/24) Generalized abdominal pain (04/07/24) Nausea with vomiting, unspecified (04/07/24) Subjective Subjective Saw patient at bedside this morning. Patient was fatigued appearing and mildly uncomfortable appearing due to ongoing abdominal discomfort and distention. Had gotten 2 doses of morphine and 2 doses of Zofran since yesterday evening for nausea and pain with mild to moderate relief. She was able to walk around with assistance on this morning and felt like this did help her bowels to move some. She was looking forward to working to getting up and walking more later this morning. No other acute concerns at this time. Objective Data Objective Data Vital Signs: Vital Signs Temp Pulse Resp BP Pulse Ox O2 Del Method O2 Flow Rate 98.9 F 77 16 94/54 L 97 Room Air 2 04/08/24 10:19 04/08/24 10:22 04/08/24 10:19 04/08/24 10:19 04/08/24 10:22 04/08/24 10:22 04/07/24 22:26 Oxygen Flow Rate (L/min) 2 Oxygen Delivery Method Room Air Weight: 91.74 kg Body Mass Index (BMI) 31.6 Intake & Output: Intake and Output for Last 24 Hours 04/06/24 04/07/24 04/08/24 22:59 23:59 23:59 Intake Total 1110 / 1210 1670.0 / 1670.0 Balance 1110 / 1210 1670.0 / 1670.0 Lab / Micro Data 04/08/24 08:02 04/08/24 08:02 Labs: Laboratory Results - last 24 hr 04/07/24 17:05: WBC 9.8, RBC 4.15 L, Hgb 13.0, Hct 38.0, MCV 91.6, MCH 31.3, MCHC 34.2, RDW Std Deviation 40.9, RDW Coeff of Rossy 12.3, Plt Count 278, MPV 9.8, Immature Gran % (Auto) 0.600, Neut % (Auto) 82.8 H, Lymph % (Auto) 10.4 L, [place] % (Auto) 5.6, Eos % (Auto) 0.1, Baso % (Auto) 0.5, Absolute Neuts (auto) 8.1 H, Absolute Lymphs (auto) 1.02, Nucleated RBC % 0, Sodium 140, Potassium 3.3 L, Chloride 106, Carbon Dioxide 28.0, Anion Gap 6, BUN 13, Creatinine 0.86, Estim Creat Clear Calc 81.30, Est GFR (MDRD) Af Amer 87, Est GFR (MDRD) Non-Af 72, BUN/Creatinine Ratio 15.2, Glucose 132 H, Lactic Acid 1.1, Calcium 9.2, Total Bilirubin 0.40, AST 26, ALT 32, Alkaline Phosphatase 58, Total Protein 7.4, Albumin 3.7, Globulin 3.7, Albumin/Globulin Ratio 1.0, Lipase 22 04/08/24 08:02: WBC 8.3, RBC 3.91 L, Hgb 12.0, Hct 37.1, MCV 94.9, MCH 30.7, M CHC 32.3 D, RDW Std Deviation 43.8, RDW Coeff of Rossy 12.6, Plt Count 268, MPV 9.5, Immature Gran % (Auto) 0.400, Neut % (Auto) 72.8 H, Lymph % (Auto) 17.8 L, [place] % (Auto) 8.1, Eos % (Auto) 0.2, Baso % (Auto) 0.7, Absolute Neuts (auto) 6.1, Absolute Lymphs (auto) 1.48, Nucleated RBC % 0, Sodium 142, Potassium 3.9, Chloride 111 H, Carbon Dioxide 24.0, Anion Gap 7, BUN 14, Creatinine 0.80, Estim Creat Clear Calc 88.04, Est GFR (MDRD) Af Amer 94, Est GFR (MDRD) Non-Af 78, BUN/Creatinine Ratio 17.5, Glucose 97, Calcium 8.6, Phosphorus 2.5, Magnesium 2.3, Total Bilirubin 0.40, AST 23, ALT 25, Alkaline Phosphatase 54, Total Protein 6.7, Albumin 3.2, Globulin 3.5, Albumin/Globulin Ratio 0.9, TSH 2.230 Radiography Diagnostic Testing: Radiology Impression Abdomen/Pelvis CT 04/07/24 16:50 IMPRESSION: Gaseous distention of the colon due to recent colonoscopy. No other acute abnormalities are identified. Electronically Signed: Jad Segovia MD at 18:58 EST , Physical Exam Const alert, oriented x3 and no apparent distress Constitutional Narrative: Middle-age female, obese, mildly fatigued and uncomfortable appearing due to ongoing abdominal pain, otherwise sitting up in bed and conversing normally. General Appearance: cooperative and comfortable HEENT normocephalic, head/scalp atraumatic, hearing grossly normal bilaterally, nasal mucous membranes and turbinates normal and moist oral mucous membranes Eyes PERRL, EOMs intact bilaterally and conjunctivae normal Neck full ROM Chest inspection of chest normal Resp normal respiratory effort, normal air movement, no use of accessory muscles and clear to auscultation bilaterally Cardio regular rate, regular rhythm, no murmurs and peripheral pulses 2+ throughout GI GI Narrative: Abdomen moderately distended and somewhat hard to palpation diffusely. No abdominal tenderness noted. Hypoactive bowel sounds noted. Back/Spine normal ROM Extremity normal to inspection, full ROM and no pedal edema Skin no rashes or lesions noted Psych mental status grossly normal Assessment & Plan Assessment/Plan (1) Intractable nausea and vomiting: (2) Abdominal pain: QUALIFIERS: Abdominal location: generalized Qualified Code(s): R 10.84 - Generalized abdominal pain PLAN: Plan Patient is a 58-year-old female who presented [facility] ED on 04/07/2024 with abdominal pain with distention and nausea/vomiting after colonoscopy. 1. Intractable abdominal pain with distention and nausea/vomiting after recent colonoscopy ? Had colonoscopy done with Dr. Huffman w/ [facility] on morning of 04/07 and presented with significant abdominal pain with distention and nausea/vomiting on evening of 04/07. Scope was largely unremarkable per records. CT abdomen pelvis showed gaseous distention of the colon due to recent colonoscopy with no other acute abnormalities identified. Continues to have distention with discomfort and nausea/vomiting on 04/08. Has tolerated small amount of clear liquids to this point. Continue symptom management with pain and nausea medications as needed. Continue senna. Mobilize frequently. Advance diet as tolerated. Will consider repeat abdominal imaging tomorrow morning if not improved. 2. Mild hypokalemia ? Potassium 3.3 on admit. Replete as needed. Chronic medical conditions: ? IBS-C: Continue home lubiprostone. ? GERD: Continue home PPI. ? Hypertension: Continue home meds. ? Obesity: BMI 31 on admit. Complicates hospital course, care and prognosis. ? Depression: Continue home duloxetine. ? History of cholecystectomy, appendectomy and hysterectomy DVT prophylaxis: Lovenox CODE STATUS: Full code, unverified Expected disposition: Home, 1 to 2 days *Patient notably was admitted under observation status. However, she continues to have significant abdominal distention with pain and is requiring both IV medications for pain and nausea and is not tolerating a diet well to this point. Will transition her to inpatient status at this time. Total clinical time spent by myself addressing the patient's medical issues, reviewing all the data, and collaborating with patient's care team: 35 minutes. Charges/Coding Visit Charges Inpatient E&M: 39391 Subs Hosp L2
[2024-04-08 16:21] VITALS: BP 114/71; PULSE 76; RESP 14; TEMP 37.1; O2SAT 96
[2024-04-08] MEDS: Acetaminophen 325 MG Tablet 650 MG PO (20:02)
[2024-04-08] MEDS: 0.9% Saline Lock 10 ML Syringe IV (20:03)
[2024-04-08] MEDS: traZODone 100 MG Tablet PO (20:43)
[2024-04-08 20:46] VITALS: BP 114/62; PULSE 71; RESP 16; TEMP 37.4; O2SAT 96
[2024-04-09 02:14] VITALS: BP 105/76; PULSE 76; RESP 16; TEMP 36.8; O2SAT 96
[2024-04-09 06:00] VITALS: BMI 31.5
[2024-04-09] MEDS: Ondansetron 4 MG/2 ML Vial IV (06:58)
[2024-04-09 07:25] LABS: Magnesium 2.1 mg/dL (1.6-2.6); Phosphorus 2.6 mg/dL (2.5-4.9)
[2024-04-09 09:00] VITALS: BP 108/53; PULSE 91; RESP 16; TEMP 36.8; O2SAT 97
[2024-04-09] MEDS: Lisinopril 10 MG Tablet PO (09:08)
[2024-04-09] MEDS: 0.9% Saline Lock 10 ML Syringe IV ×3 (09:08→14:06)
[2024-04-09] MEDS: Enoxaparin 40 MG/0.4 ML Syringe SC (09:08)
[2024-04-09] MEDS: Senna Tablet 1 TABLET PO ×2 (09:09→21:02)
[2024-04-09] MEDS: LUBIPROSTONE 8 MCG CAPSULE PO ×2 (09:09→17:50)
[2024-04-09] MEDS: Lactobacillis Acidophilus 1 CAP PO ×3 (09:09→21:02)
[2024-04-09] MEDS: Triamterene 37.5MG/Hctz 25MG Capsule 1 CAP PO (09:09)
[2024-04-09] MEDS: DULoxetine Hcl 60 MG Capsule PO (09:09)
[2024-04-09] MEDS: Polyethylene Glycol 3350 17 GM PACKET PO (09:09)
[2024-04-09] MEDS: Pantoprazole Sodium 40 MG in 0.9% Normal Saline (100mL MB+) 100 ML 330 MG IV (09:09)
[2024-04-09] MEDS: 0.9% Normal Saline (500mL Bag) 500 ML 15 ML IV (09:25)
--- NOTE | 2024-04-09 10:30 | RAD_ITS ---
STUDY: X-RAY - ABDOMEN/PELVIS REASON FOR EXAM: Female, 58 years old. abdominal distention TECHNIQUE: AP supine and upright views of the abdomen and pelvis. COMPARISON: None. FINDINGS: Normal visualized lung bases. There is gaseous distention of the colon and loops of small intestine, consistent with a large bowel obstruction. There is no demonstrated free abdominal air. The visualized liver, spleen and kidneys are grossly normal in size and morphology. Normal soft tissue structures. Dextroscoliosis of the thoracolumbar spine with a spinal mary alice. RAD/Abd Inc Decub and/or Erect IMPRESSION: Colonic obstruction. No pneumoperitoneum to suggest perforation. Electronically Signed: Jemal Kee MD at 11:20 EST ,
--- NOTE | 2024-04-09 11:49 | CT_ITS ---
STUDY: CT ABDOMEN AND PELVIS WITH CONTRAST REASON FOR EXAM: Female, 58 years old. KUB w/ colonic obstruc called, CT for further eval -- w/ oral and IV contrast RADIATION DOSAGE (If Supplied By Facility): CTDIvol = ( 16.69 ) mGy, DLP = ( 1142.61 ) mGycm TECHNIQUE: Transaxial images were obtained from the dome of the diaphragm to the symphysis pubis with oral contrast. Oral and amp; IV Gastrografin and amp; 100mL Isovue-300 was administered. Sagittal and coronal images were reconstructed. Individualized dose optimization techniques were used for this CT. COMPARISON: Comparison is made with prior study April 07, 2024. FINDINGS: The visualized lung bases are unremarkable. The visualized portions of the heart are within normal limits. There is decreased attenuation of the liver consistent with steatosis. The patient is status post cholecystectomy. Normal spleen. Normal pancreas. Normal bilateral adrenal glands. Normal right kidney. Normal left kidney. Normal visualized stomach. Normal small intestine. Colonic distention with oral contrast and air down to the region of the sigmoid colon. Soft tissue density is seen in the mid sigmoid colon. An obstructive lesion should be ruled out. The patient is status post appendectomy. Normal abdominal aorta. Normal inferior vena cava. Normal retroperitoneum. Normal urinary bladder. There is absence of the uterus consistent with a prior hysterectomy. Small amount of free fluid is seen in the pelvis. Normal abdominal wall. There are diffuse degenerative changes of the visualized lumbar spine. Levoscoliosis. CT/Abdomen/Pelvis WITH Contrast IMPRESSION: Colonic distention. Possible obstructive lesion in the mid sigmoid colon. Electronically Signed: Sanchez Cohen MD at 15:03 EST ,
--- NOTE | 2024-04-09 11:54 | PN.HOSP_ITS ---
Reason for Visit Reason for Visit: Diagnoses Obesity, class 1 (04/07/24) Hypokalemia (04/07/24) Essential (primary) hypertension (04/07/24) Gastro-esophageal reflux disease without esophagitis (04/07/24) Irritable bowel syndrome, unspecified (04/07/24) Generalized abdominal pain (04/07/24) Nausea with vomiting, unspecified (04/07/24) Subjective Subjective Saw patient at bedside this morning. Patient appeared similar today to yesterday. Continued to have significant abdominal distention and has not passed any gas since her colonoscopy. Obtain repeat KUB later this morning that showed concern for large bowel obstruction. Discussed over the phone with general surgery who recommended CT abdomen pelvis with oral and IV contrast for further evaluation. Patient notably just had colonoscopy done 2 days ago so true new large bowel obstruction seems unlikely. Following closely. Objective Data Objective Data Vital Signs: Vital Signs Temp Pulse Resp BP Pulse Ox O2 Del Method O2 Flow Rate 98.3 F 91 16 108/53 L 97 Room Air 2 04/09/24 09:00 04/09/24 09:00 04/09/24 09:00 04/09/24 09:00 04/09/24 09:00 04/09/24 09:00 04/09/24 02:14 FiO2 96 04/08/24 20:47 Oxygen Flow Rate (L/min) 2 Oxygen Delivery Method Room Air Weight: 91.32 kg Body Mass Index (BMI) 31.5 Intake & Output: Intake and Output for Last 24 Hours 04/07/24 04/08/24 04/09/24 23:59 23:59 23:59 Intake Total 1109.0 / 2.0 265 / 265 Balance 11090 / 2.0 265 / 265 Lab / Micro Data 04/08/24 08:02 04/08/24 08:02 Labs: Laboratory Results - last 24 hr 04/09/24 06:09: Phosphorus 2.6, Magnesium 2.1 Radiography Diagnostic Testing: Radiology Impression Abdomen X-Ray 04/09/24 10:30 IMPRESSION: Colonic obstruction. No pneumoperitoneum to suggest perforation. Electronically Signed: Jemal Kee MD at 11:20 EST , Physical Exam Const alert, oriented x3 and no apparent distress Constitutional Narrative: Middle-age female, obese, mildly fatigued and uncomfortable appearing due to ongoing abdominal pain, otherwise sitting up in bed and conversing normally. General Appearance: cooperative HEENT normocephalic, head/scalp atraumatic, hearing grossly normal bilaterally, nasal mucous membranes and turbinates normal and moist oral mucous membranes Eyes PERRL, EOMs intact bilaterally and conjunctivae normal Neck full ROM Chest inspection of chest normal Resp normal respiratory effort, normal air movement, no use of accessory muscles and clear to auscultation bilaterally Cardio regular rate, regular rhythm, no murmurs and peripheral pulses 2+ throughout GI GI Narrative: Abdomen moderately distended and somewhat hard to palpation diffusely. No abdominal tenderness noted. Hypoactive bowel sounds noted. Stable from yesterday. Back/Spine normal ROM Extremity normal to inspection, full ROM and no pedal edema Skin no rashes or lesions noted Psych mental status grossly normal Assessment & Plan Assessment/Plan (1) Intractable nausea and vomiting: (2) Abdominal pain: QUALIFIERS: Abdominal location: generalized Qualified Code(s): R 10.84 - Generalized abdominal pain PLAN: Plan Patient is a 58-year-old female who presented [facility] ED on 04/07/2024 with abdominal pain with distention and nausea/vomiting after colonoscopy. 1. Intractable abdominal pain with distention and nausea/vomiting after recent colonoscopy, concern for large bowel obstruction ? Had colonoscopy done with Dr. Huffman with general surgery w/ [facility] on morning of 04/07 and presented with significant abdominal pain with distention and nausea/vomiting on evening of 04/07. Scope was largely unremarkable per records. CT abdomen pelvis on admit showed gaseous distention of the colon due to recent colonoscopy with no other acute abnormalities identified. Continue to have distention with discomfort and nausea/vomiting on 04/08 and morning of 04/09. KUB on 04/09 showed gaseous distention of colon and loops of small intestine consistent with large bowel obstruction, no free abdominal air noted. Discussed over the phone with Dr. Verduzco with general surgery who recommended CT abdomen pelvis with oral and IV contrast for further evaluation. Patient notably had no true obstruction on colonoscopy so per general surgery have lower concern for true large bowel obstruction. Importantly, if obstruction is present, Dr. Verduzco recommended that patient be transferred so further management could be done by [facility] general surgery. Continue symptom management with pain and nausea medications as needed. Continue senna for now. 2. Mild hypokalemia ? Potassium 3.3 on admit. Repleting as needed. Chronic medical conditions: ? IBS-C: Continue home lubiprostone. ? GERD: Continue home PPI. ? Hypertension: Continue home meds. ? Obesity: BMI 31 on admit. Complicates hospital course, care and prognosis. ? Depression: Continue home duloxetine. ? History of cholecystectomy, appendectomy and hysterectomy DVT prophylaxis: Lovenox CODE STATUS: Full code, unverified Expected disposition: TBD Total clinical time spent by myself addressing the patient's medical issues, reviewing all the data, and collaborating with patient's care team: 35 minutes. Charges/Coding Visit Charges Inpatient E&M: 50255 Subs Hosp L2
[2024-04-09 13:51] VITALS: BP 126/86; PULSE 86; RESP 18; TEMP 37.2; O2SAT 99
[2024-04-09] MEDS: proCHLORPERazine 10 MG/2 ML Vial 5 MG IV (14:06)
[2024-04-09] MEDS: Morphine 2 MG/ML Syringe IV (14:12)
[2024-04-09 16:19] LABS: Bacteria 0 SEEN /hpf (None Seen); Mucous, Urine 0 SEEN /hpf (<or=2+); Red Blood Cells-Urine 0 SEEN /hpf (0-5); Squamous Epithelial Cells - UA 0 SEEN /hpf (5-10); White Blood Cells 0 SEEN /hpf (0-5)
[2024-04-09 16:29] LABS: Color, Urine Yellow (Yellow); Glucose, Dipstick Normal (Normal); Ketone-Dipstick 5 mg/dl (Negative); Leukocyte Esterase-Dipstick Negative /ul (Negative); Nitrite-Dipstick Negative (Negative); Occult Blood-Urine Negative /ul (Negative); Protein-Dipstick Negative (Negative); Specific Gravity, Urine 1.005 (1.002-1.030); Urine Bilirubin Dipstick Negative (Negative); Urine Clarity Clear (Clear); Urine Urobilinogen Normal (Normal)
[2024-04-09 20:59] VITALS: BP 120/78; PULSE 69; RESP 18; TEMP 36.6; O2SAT 93
[2024-04-09] MEDS: traZODone 100 MG Tablet PO (21:02)
[2024-04-10 03:38] VITALS: BP 110/66; PULSE 71; RESP 18; TEMP 37; O2SAT 100
[2024-04-10] MEDS: Ondansetron 4 MG/2 ML Vial IV (04:55)
[2024-04-10 06:00] VITALS: BMI 32.8
[2024-04-10 07:42] VITALS: BP 126/75; PULSE 71; RESP 16; TEMP 36.9; O2SAT 98
--- NOTE | 2024-04-10 07:45 | PCM.PN.HOSP ---
Reason for Visit Reason for Visit: Diagnoses Obesity, class 1 (04/07/24) Hypokalemia (04/07/24) Essential (primary) hypertension (04/07/24) Gastro-esophageal reflux disease without esophagitis (04/07/24) Irritable bowel syndrome, unspecified (04/07/24) Generalized abdominal pain (04/07/24) Nausea with vomiting, unspecified (04/07/24) Subjective Subjective Patient overnight with no acute events with mild improvement in her abdominal distention she notes an onset of flatus with toleration of clear liquid diet which had been previously initiated. Repeat KUB this morning with diffuse ongoing distention but no focal transition point or evidence of any obstruction which was discussed with patient. She does note some generalized discomfort with the abdominal distention but no focal pain. She notes she does have chronic issues and does frequently take Gas-X. She notes she had remote colonoscopy 10 years prior and did not have these issues following. She did have some nausea this morning and notes this is been a chronic issue but denies any currently. Patient denies fevers, chills, emesis, chest pain or dyspnea. Objective Data Objective Data Vital Signs: Vital Signs Temp Pulse Resp BP Pulse Ox O2 Del Method O2 Flow Rate 98.4 F 71 16 126/75 H 98 Room Air 2 04/10/24 07:42 04/10/24 07:42 04/10/24 07:42 04/10/24 07:42 04/10/24 07:42 04/10/24 07:42 04/10/24 03:38 FiO2 96 04/08/24 20:47 Oxygen Flow Rate (L/min) 2 Oxygen Delivery Method Room Air Weight: 209 lb 7.026 oz Body Mass Index (BMI) 32.8 Intake & Output: Intake and Output for Last 24 Hours 04/08/24 04/09/24 04/10/24 23:59 23:59 23:59 Intake Total 0 2111.0 265 / 265 0 / 0 Balance 2111.0 265 / 265 0 / 0 Lab / Micro Data 04/10/24 08:07 04/10/24 08:02 Labs: Laboratory Results - last 24 hr 04/09/24 16:00: Urine Color Yellow, Urine Clarity Clear, Urine pH 6.0, Ur Specific [place] 1.005, Urine Protein Negative, Urine Glucose (UA) Normal, Urine Ketones 5 H, Urine Occult Blood Negative, Urine Nitrite Negative, Urine Bilirubin Negative, Urine Urobilinogen Normal, Ur Leukocyte Esterase Negative, Urine RBC 0 SEEN, Urine WBC 0 SEEN, Ur Squamous Epith Cells 0 SEEN, Urine Bacteria 0 SEEN, Urine Mucus 0 SEEN Radiography Diagnostic Testing: Radiology Impression Abdomen X-Ray 04/09/24 10:30 IMPRESSION: Colonic obstruction. No pneumoperitoneum to suggest perforation. Electronically Signed: Jemal Kee MD at 11:20 EST , Abdomen/Pelvis CT 04/09/24 11:49 IMPRESSION: Colonic distention. Possible obstructive lesion in the mid sigmoid colon. Electronically Signed: Sanchez Cohen MD at 15:03 EST , Physical Exam Narrative Physical Examination: General: Awake, alert, oriented x 3 and cooperative, seated upright in the MS bed, notes ongoing flatus and abdominal distention has been slowly improving Skin: Normal color, normal turgor, no icterus, no cyanosis except for occasional stage ecchymoses likely from lab draws HEENT: AT/NC, EOMI, PERRLA, MMM. Lungs: CTA bilaterally, moderate effort, mild decrease BL bases, no rales, ronchi or wheezing. Heart: Regular rate and rhythm; no gallop, rub audible. Abdomen: Soft, no significant pain to palpation but patient is still distended and tympanitic, diffuse hyperactive bowel sounds. Extremities: No cyanosis, clubbing, or edema. Neurological: Patient awake, alert, oriented as noted, cognitive function intact; pupils equally reactive to light and accommodation, cranial nerves grossly normal, moving all 4 extremities, no focal deficits, strength mildly globally decreased, improving Psychiatric: Affect appears fatigued otherwise normal, no acute evidence of depressive or anxiety feelings. Assessment & Plan Assessment/Plan (1) Abdominal pain: QUALIFIERS: Abdominal location: generalized Qualified Code(s): R10.84 - Generalized abdominal pain (2) Intractable nausea and vomiting: PLAN: Plan The patient is a 58 y/o F w/ PMHx: GERD, IBS-C, HTN, Anxiety and Depression, Obesity, Chronic anemia who presents to the [facility] ED on 04/07/24 with persistent intractable abdominal discomfort, distention, nausea and emesis following recent colonoscopy. #1. Acute intractable abdominal pain with distention with nausea and emesis following recent endoscopy with initial concern for bowel obstruction, low suspicion per general surgery and felt related to gaseous distention secondary to recent endoscopy, slowly improving, ileus: Admitted to medical surgical floor, CT abdomen pelvis upon presentation with gaseous distention with no other acute abnormality with repeat CT 04/09/24 with noted colonic distention and questionable obstructive lesion in the mid sigmoid colon but again upon surgery reevaluation of imaging reportedly still felt more consistent with distention secondary to recent endoscopy with eventual clinical improvement and onset of flatus with this initiation of clear liquids, 04/10/2024 continued improvement thus will transition to full liquid, 04/10/2024 later in the day onset of liquid stools with general surgery requested stool studies including enteric, ova and parasite and fecal WBCs as well as plan to suppository with encouraged continued aggressive ambulation and chewing gum to stimulate bowels. #2. Hypokalemia: Admission K+ 3.3, magnesium level requested and noted to be 1.9, supplementation given, repeat level in AM. #3. IBS-C type: We will continue patient home lubiprostone home regimen, complicates presentation as noted above. #4. Chronic normocytic anemia: Admission hemoglobin 13.0, MCV 91.6, previous baseline has appeared primarily 10-12 but occasionally in the 13 range, 04/10/2024 hemoglobin 11.5, MCV 91.9, will continue to trend. #5. Anxiety and depression: We will continue patient home duloxetine home regimen. #6. Hypertension: Continue home regimen including lisinopril with hold parameters as needed, PRN hydralazine. #7. GI prophylaxis/GERD: Will change IV PPI to oral PPI given clear tolerance. #8. DVT prophylaxis: Lovenox. Charges/Coding Visit Charges Inpatient E&M: 74305 Subs Hosp L2
[2024-04-10] MEDS: LUBIPROSTONE 8 MCG CAPSULE PO ×2 (07:54→17:16)
[2024-04-10 08:20] LABS: Absolute Lymphocyte Count 1.28 X10^3/uL (0.83-4.51); Absolute Neutrophil Count 4.4 X10^3/uL (2.0-7.7); Basophil# 0.06 X10^3/uL; Eosinophil# 0.03 X10^3/uL; Eosinophils% 0.5 % (0-5); Hemoglobin 11.5 g/dL (12.0-15.0); Lymphocyte # 1.28 X10^3/ul (0.83-4.51); Lymphocyte % 20.5 % (19-41); Mean Corp Hgb Conc 33.8 g/dL (32-36); Mean Corpuscular Hgb 31.1 pg (27.0-32.0); Mean Corpuscular Volume 91.9 fL (81-99); Mean Platelet Vol. 9.4 fl (6.2-12.0); Monocyte# 0.48 X10^3/uL; Monocyte% 7.7 % (0-10); NRBC Flagged by Analyzer 0 % (0-5); Neutrophil # 4.36 X10^3/uL (2.7-7.7); Platelet Count 213 K/mm3 (150-450); RBC Distribution Width CV 12.2 % (11.6-14.6); RBC Distribution Width SD 41.1 fl (35.1-43.9); White Blood Count 6.2 K/mm3 (4.4-11.0)
--- NOTE | 2024-04-10 08:27 | RAD_ITS ---
STUDY: X-RAY - ABDOMEN/PELVIS REASON FOR EXAM: Female, 58 years old. Bowel obstruction TECHNIQUE: Single AP view of the abdomen / pelvis. COMPARISON: Comparison is made with prior study April 09, 2014. FINDINGS: Persistent colonic distention down to the level of the sigmoid colon. There has been mild improvement as compared to prior study. The visualized liver, spleen and kidneys are grossly normal in size and morphology. Normal soft tissue structures. There are diffuse degenerative changes of the visualized lumbar spine. Scoliosis at the thoracolumbar junction. Prior Izagu[place]re mary alice fixation. RAD/Abdomen Single View (Portable) IMPRESSION: Persistent colonic distention although there has been improvement as compared to prior study. Electronically Signed: Sanchez Cohen MD at 10:10 EST ,
[2024-04-10 08:41] LABS: ALB/GLOB Ratio 0.9 RATIO (0.9-2.4); AST(SGOT) 24 U/L (15-37); Alanine Aminotransfer ALT/SGPT 25 U/L (13-56); Albumin, Serum 3.2 g/dL (3.2-5.0); Alkaline Phosphatase 49 U/L (45-117); Anion Gap 9 (5-15); BUN 11 mg/dL (7-18); BUN/Creat Ratio 14.4 RATIO (10-20); Chloride 103 mmol/L (98-107); Creatinine, Serum 0.76 mg/dL (0.55-1.02); EST Glomerular Filtration Rate 82 mL/min (>60); Est Glom Filt Rate - Afr Amer 100 mL/min (>60); Estimated Creatinine Clearance 94.32 ml/min; Globulin 3.4 g/dL (2.2-4.2); Glucose 90 mg/dL (74-106); Potassium 3.3 mmol/L (3.5-5.1); Protein, Total 6.6 g/dL (6.4-8.2); Sodium Level 136 mmol/L (136-145)
[2024-04-10] MEDS: Enoxaparin 40 MG/0.4 ML Syringe SC (10:22)
[2024-04-10] MEDS: Triamterene 37.5MG/Hctz 25MG Capsule 1 CAP PO (10:22)
[2024-04-10] MEDS: Lactobacillis Acidophilus 1 CAP PO ×4 (10:22→21:11)
[2024-04-10] MEDS: DULoxetine Hcl 60 MG Capsule PO (10:22)
[2024-04-10] MEDS: Polyethylene Glycol 3350 17 GM PACKET PO (10:22)
[2024-04-10] MEDS: Lisinopril 10 MG Tablet PO (10:23)
[2024-04-10] MEDS: Senna Tablet 1 TABLET PO ×2 (10:23→21:11)
[2024-04-10] MEDS: Pantoprazole Sodium 40 MG in 0.9% Normal Saline (100mL MB+) 100 ML 330 MG IV (10:23)
[2024-04-10] MEDS: 0.9% Saline Lock 10 ML Syringe IV (10:28)
[2024-04-10 10:56] LABS: Magnesium 1.9 mg/dL (1.6-2.6)
[2024-04-10] MEDS: Potassium Chloride Oral Tablet 20 MEQ 40 MEQ PO (11:35)
--- NOTE | 2024-04-10 12:24 | CON.PCM.SX_ITS ---
Assessment & Plan Assessment/Plan (1) Abdominal pain: QUALIFIERS: Abdominal location: generalized Qualified Code(s): R 10.84 - Generalized abdominal pain (2) Intractable nausea and vomiting: PLAN: Plan I have been consulted in conjunction with Dr. Verduzco. He will also independently evaluate this patient. Patient presents on the day of her colonoscopy with abdominal distention, nausea, vomiting. CT scan ab/pel with contrast is showing colonic distention with soft tissue density in the sigmoid colon. A colonoscopy was able to be successfully completed through the sigmoid colon without any concerns. Patient is now having a small amount of liquidy stools likely from the contrast. Will check stool studies for enteric path, ova and parasites and fecal WBC. Plan to also give a suppository to see if allows any relief. Continue to encourage ambulation and gum chewing as this will help with stimulation of the bowels. No surgical intervention is being recommended at this time. Patient has had the opportunity to ask and have questions answered. Patient verbally understands and agrees with the plan. Thank you for allowing us to participate in this patient's care. HPI Consult Data Date of Consult: 04/10/24 HPI Narrative Reason for Consultation: Abdominal distention HPI Narrative: ALMA PEARCE, is a 58 F who presents on the evening of 04/07 following her colonoscopy secondary to abdominal distention, nausea and vomiting. Patient had a colonoscopy on the morning of 04/[address] Huffman. Findings from the colonoscopy include localized mild inflammation in the sigmoid colon, secondary to colitis, localized mild inflammation found in the rectum secondary to proctitis, non-bleeding external and internal hemorrhoids. Pathology- sigmoid demonstrated melanosis coli, otherwise no diagnostic abnormality and rectum biopsy demonstrated colonic mucosa with no diagnostic abnormality. Recommend repeat in 10 years. Patient returned home was and was feeling well. She noted that evening she developed nausea, vomiting and abdominal distention. She was unable to pass flatus and was in a moderate amount of pain and presented to the ED. She notes a history of severe constipation. She states she has to take Miralax 2-3 times per week. She states her PCP has her on lubiprostone for her bowels twice daily. She notes she just started this medication 4 days prior to her colonoscopy. She notes continued nausea. She feels her abdomen has decreased in size however she notes she is still bloated. She has been passing a small amount of flatus. She notes having small liquidy bowel movements today. She notes these come in the form of flatus and she notes 90% of the stool is liquid. She does note on 03/03, she was treated for diverticulitis by Dr. Huffman with Cipro and Flagyl x 10 days. She notes being allergic to the Flagyl as she developed hives. She notes her recent colonoscopy was to follow-up from the diverticulitis episode and because she is due for a colonoscopy. Patient notes the pain in the left lower quadrant has completely resolved. Patient's past surgical history includes in 1986, cholecystectomy, appendectomy, removal of ovarian cyst, lysis of adhesions, hysterectomy with abdominoplasty. Currently has an umbilical hernia. CT scan of ab/pel on admission demonstrated gaseous distention of the colon due to recent colonoscopy. no other acute abnormalities. Repeat CT scan of ab/pel with oral and IV contrast demonstrated colonic distention with oral contrast and air down to the region of the sigmoid colon. Soft tissue density is seen in the mid sigmoid colon. An obstructive lesions should be ruled out. [facility] Medical History (Updated 04/08/24 @ 04:[address] Krishna Mckeon, DO) Hearing loss, left Depression Chronic pain GERD (gastroesophageal reflux disease) Irregular heart beat Migraines Diverticulosis Migraines Home Medications ?Medication ?Instructions ?Recorded ?Last Taken ?Type albuterol sulfate 90 mcg/actuation 1 puff inhalation Q4H PRN PRN Sob 08/09/16 Unknown History aerosol inhaler (Ventolin HFA) &/Or Wheezing omeprazole 20 mg capsule,delayed 20 mg PO DAILY 08/09/16 04/06/24 History release lisinopril 10 mg tablet 10 mg PO DAILY ##0 08/14/16 04/07/24 Rx triamterene 37.5 1 cap PO DAILY ##0 08/14/16 04/06/24 Rx mg-hydrochlorothiazide 25 mg capsule duloxetine 60 mg capsule,delayed 60 mg PO DAILY 10/07/21 04/06/24 History release metronidazole 500 mg tablet 500 mg PO BID #20 tabs 10/07/21 Unknown Rx polyethylene glycol 3350 17 gram 17 g PO DAILY 10/07/21 04/04/24 History oral powder packet (Miralax) lubiprostone 8 mcg capsule 8 mcg PO BID 04/07/24 04/03/24 History trazodone 100 mg tablet 100 mg PO QHS 04/07/24 04/06/24 History Allergy/AdvReac Type Severity Reaction Status Date / Time bupropion (From Wellbutrin) Allergy I LOSE MY Verified 04/07/24 16:19 HEARING AND SMELL metronidazole (From Flagyl) Allergy Itching Verified 04/07/24 16:31 Tetanus Vaccines and Toxoid AdvReac Vomiting Verified 04/07/24 16:19 (Tetanus Vaccines & Toxoid) Surgical History History of herniorrhaphy History of History of appendectomy H/O: hysterectomy History of cholecystectomy H/O spinal fusion Social History Smoking Status: Never smoker ROS Constitutional Constitutional: Reports systems reviewed and no addt'l complaints, except as documented Eyes Eyes: Reports systems reviewed and no addt'l complaints, except as documented ENT HEENT: Reports systems reviewed and no addt'l complaints, except as documented Cardiovascular Cardiovascular: Reports systems reviewed and no addt'l complaints, except as documented Respiratory/Chest Respiratory/Chest: Reports systems reviewed and no addt'l complaints, except as documented Gastrointestinal Gastrointestinal: Reports systems reviewed and no addt'l complaints, except as documented Genitourinary Genitourinary: Reports systems reviewed and no addt'l complaints, except as documented Musculoskeletal Musculoskeletal: Reports systems reviewed and no addt'l complaints, except as documented Integumentary Integumentary: Reports systems reviewed and no addt'l complaints, except as documented Neurologic Neurologic: Reports systems reviewed and no addt'l complaints, except as documented Psychiatric Psychiatric: Reports systems reviewed and no addt'l complaints, except as documented Endocrine Endocrinology: Reports systems reviewed and no addt'l complaints, except as documented Hematologic/Lymphatic Hematologic/Lymphatic: Reports systems reviewed and no addt'l complaints, except as documented Allergic/Immunologic Allergic/Immunologic: Reports systems reviewed and no addt'l complaints, except as documented Physical Exam Const alert, oriented x3 and no apparent distress HEENT normocephalic and head/scalp atraumatic Eyes PERRL Neck full ROM Resp normal respiratory effort and clear to auscultation bilaterally Cardio regular rate and regular rhythm GI GI Narrative: Abdomen- soft, abdominal distention, pressure- no true tenderness, hypoactive bowel sounds. no CVA tenderness Back/Spine no CVA tenderness Extremity normal to inspection Skin no rashes or lesions noted Neuro no focal motor deficits and no sensory deficits noted Psych mental status grossly normal, thought process normal and cooperative Lab / Micro Data 04/10/24 08:07 04/10/24 08:02 Labs: Laboratory Results - last 24 hr 04/09/24 16:00: Urine Color Yellow, Urine Clarity Clear, Urine pH 6.0, Ur Specific [place] 1.005, Urine Protein Negative, Urine Glucose (UA) Normal, Urine Ketones 5 H, Urine Occult Blood Negative, Urine Nitrite Negative, Urine Bilirubin Negative, Urine Urobilinogen Normal, Ur Leukocyte Esterase Negative, Urine RBC 0 SEEN, Urine WBC 0 SEEN, Ur Squamous Epith Cells 0 SEEN, Urine Bacteria 0 SEEN, Urine Mucus 0 SEEN 04/10/24 08:02: Sodium 136, Potassium 3.3 L, Chloride 103, Carbon Dioxide 24.0, Anion Gap 9, BUN 11, Creatinine 0.76, Estim Creat Clear Calc 94.32, Est GFR (MDRD) Af Amer 100, Est GFR (MDRD) Non-Af 82, BUN/Creatinine Ratio 14.4, Glucose 90, Calcium 9.0, Magnesium 1.9, Total Bilirubin 0.50, AST 24, ALT 25, Alkaline Phosphatase 49, Total Protein 6.6, Albumin 3.2, Globulin 3.4, Albumin/Globulin Ratio 0.9 04/10/24 08:07: WBC 6.2, RBC 3.70 L, Hgb 11.5 L, Hct 34.0 L, MCV 91.9, MCH 31.1, MCHC 33.8, RDW Std Deviation 41.1, RDW Coeff of Rossy 12.2, Plt Count 213, MPV 9.4, Immature Gran % (Auto) 0.300, Neut % (Auto) 70.0, Lymph % (Auto) 20.5, [place] % (Auto) 7.7, Eos % (Auto) 0.5, Baso % (Auto) 1.0, Absolute Neuts (auto) 4.4, Absolute Lymphs (auto) 1.28, Nucleated RBC % 0 Imaging Radiology Impression Abdomen/Pelvis CT 04/09/24 11:49 IMPRESSION: Colonic distention. Possible obstructive lesion in the mid sigmoid colon. Electronically Signed: Sanchez Cohen MD at 15:03 EST , KUB X-Ray 04/10/24 08:27 IMPRESSION: Persistent colonic distention although there has been improvement as compared to prior study. Electronically Signed: Sanchez Cohen MD at 10:10 EST , Charges/Coding Visit Charges Inpatient E&M: 79613 Init Hosp L2
[2024-04-10 14:15] VITALS: BP 117/63; PULSE 91; RESP 18; TEMP 37.1; O2SAT 95
--- NOTE | 2024-04-10 15:42 | CASEMGMT ---
MARCY WASHINGTON into pt room, pt sitting up in bed with 2 friends at bedside. Pt agreeable to discussion with friends present. Pt states she lives with her . Pt reports she is I in ADLs and works. Pt does not use AD. Pt has CPAP and no other DME in the home. Pt denies any homegoing needs at this time and is aware to ask for the RN CM should she feel she has needs. MARCY WASHINGTON to follow.
[2024-04-10] MEDS: Bisacodyl 10 MG Suppository RC (16:27)
[2024-04-10 21:07] VITALS: BP 129/81; PULSE 73; RESP 18; TEMP 37.1; O2SAT 95
[2024-04-10] MEDS: Pantoprazole Sodium 20 MG Tablet PO (21:11)
[2024-04-10] MEDS: traZODone 100 MG Tablet PO (21:11)
[2024-04-10] MEDS: Scopolamine 1mg/72hr Patch 1 PATCH TD (21:14)
[2024-04-10] MEDS: Acetaminophen 325 MG Tablet 650 MG PO (21:14)
[2024-04-10] MEDS: Ondansetron 8 MG Tablet PO (22:03)
[2024-04-11 04:16] VITALS: BP 131/74; PULSE 73; RESP 18; TEMP 36.9; O2SAT 99
[2024-04-11 06:00] VITALS: BMI 32.8
--- NOTE | 2024-04-11 06:45 | PCM.PN.HOSP ---
Reason for Visit Reason for Visit: Diagnoses Obesity, class 1 (04/07/24) Hypokalemia (04/07/24) Essential (primary) hypertension (04/07/24) Gastro-esophageal reflux disease without esophagitis (04/07/24) Irritable bowel syndrome, unspecified (04/07/24) Generalized abdominal pain (04/07/24) Nausea with vomiting, unspecified (04/07/24) Subjective Subjective Patient overnight with no acute events per self and per nursing report. She does feel as though her abdomen is less uncomfortable reporting it aching in 1-2 out of 10 in severity. She still has occasional nausea but she states this is baseline. She notes she has been up and walking and is tolerating the diet. She still does feel mildly distended. She did have at least 4 liquid stools and C. difficile was negative as well as negative enteric panel. General surgery evaluation early this morning with recommendation to continue current diet until further improved and again feels as though this is consistent with ileus/issues following recent colonoscopy but no obstructive process. Patient denies fevers, chills, nausea, emesis, chest pain or dyspnea. Objective Data Objective Data Vital Signs: Vital Signs Temp Pulse Resp BP Pulse Ox O2 Del Method O2 Flow Rate 98.5 F 73 18 131/74 H 99 Nasal Cannula 2 04/11/24 04:16 04/11/24 04:16 04/11/24 04:16 04/11/24 04:16 04/11/24 04:16 04/11/24 04:16 04/11/24 04:16 FiO2 96 04/08/24 20:47 Oxygen Flow Rate (L/min) 2 Oxygen Delivery Method Nasal Cannula Weight: 209 lb 10.554 oz Body Mass Index (BMI) 32.8 Intake & Output: Intake and Output for Last 24 Hours 04/09/24 04/10/24 04/11/24 23:59 23:59 23:59 Intake Total 265 / 265 470 / 470 Output Total 360 / 360 Balance 265 / 265 110 / 110 Lab / Micro Data 04/11/24 06:50 04/11/24 06:50 Labs: Laboratory Results - last 24 hr 04/10/24 08:02: Sodium 136, Potassium 3.3 L, Chloride 103, Carbon Dioxide 24.0, Anion Gap 9, BUN 11, Creatinine 0.76, Estim Creat Clear Calc 94.32, Est GFR (MDRD) Af Amer 100, Est GFR (MDRD) Non-Af 82, BUN/Creatinine Ratio 14.4, Glucose 90, Calcium 9.0, Magnesium 1.9, Total Bilirubin 0.50, AST 24, ALT 25, Alkaline Phosphatase 49, Total Protein 6.6, Albumin 3.2, Globulin 3.4, Albumin/Globulin Ratio 0.9 04/10/24 08:07: WBC 6.2, RBC 3.70 L, Hgb 11.5 L, Hct 34.0 L, MCV 91.9, MCH 31.1, MCHC 33.8, RDW Std Deviation 41.1, RDW Coeff of Rossy 12.2, Plt Count 213, MPV 9.4, Immature Gran % (Auto) 0.300, Neut % (Auto) 70.0, Lymph % (Auto) 20.5, [place] % (Auto) 7.7, Eos % (Auto) 0.5, Baso % (Auto) 1.0, Absolute Neuts (auto) 4.4, Absolute Lymphs (auto) 1.28, Nucleated RBC % 0 Micro: Microbiology 04/10/24 16:00 Stool Stool Lactoferrin - Final 04/10/24 16:00 Stool Enteric Bacteriology - Final Radiography Diagnostic Testing: Radiology Impression KUB X-Ray 04/10/24 08:27 IMPRESSION: Persistent colonic distention although there has been improvement as compared to prior study. Electronically Signed: Sanchez Cohen MD at 10:10 EST , Physical Exam Narrative Physical Examination: General: Awake, alert, oriented x 3 and cooperative, laying in the MS bed, notes her abdomen feels better and feels less distended, rating it 1-2 out of 10 in severity. Skin: Normal color, normal turgor, no icterus, no cyanosis except for occasional stage ecchymoses likely from lab draws HEENT: AT/NC, EOMI, PERRLA, MMM. Lungs: CTA bilaterally, moderate effort, mild decrease BL bases, no rales, ronchi or wheezing. Heart: Regular rate and rhythm; no gallop, rub audible. Abdomen: Soft, more so than day prior, still mildly distended but less tympanitic, less hyperactive bowel sound concurrently. Extremities: No cyanosis, clubbing, or edema. Neurological: Patient awake, alert, oriented as noted, cognitive function intact; pupils equally reactive to light and accommodation, cranial nerves grossly normal, moving all 4 extremities, no focal deficits, strength improving, mildly globally decreased, improving Psychiatric: Affect appears fatigued otherwise normal, no acute evidence of depressive or anxiety feelings. Assessment & Plan Assessment/Plan (1) Abdominal pain: QUALIFIERS: Abdominal location: generalized Qualified Code(s): R10.84 - Generalized abdominal pain (2) Intractable nausea and vomiting: PLAN: Plan The patient is a 58 y/o F w/ PMHx: GERD, IBS-C, HTN, Anxiety and Depression, Obesity, Chronic anemia who presents to the [facility] ED on 04/07/24 with persistent intractable abdominal discomfort, distention, nausea and emesis following recent colonoscopy. #1. Acute intractable abdominal pain with distention with nausea and emesis following recent endoscopy with initial concern for bowel obstruction, felt ruled out with low suspicion per general surgery and felt related to gaseous distention secondary to recent endoscopy, slowly improving, ileus: Admitted to medical surgical floor, CT abdomen pelvis upon presentation with gaseous distention with no other acute abnormality with repeat CT 04/09/24 with noted colonic distention and questionable obstructive lesion in the mid sigmoid colon but again upon surgery reevaluation of imaging reportedly still felt more consistent with distention secondary to recent endoscopy with eventual clinical improvement and onset of flatus with this initiation of clear liquids, 04/10/2024 continued improvement thus transition to full liquid, 04/10/2024 later in the day onset of liquid stools with negative C. difficile and negative enteric as well as negative fecal WBCs. 04/11/2024 reevaluation for surgery with recommendation for continuation of her current diet, aggressive ambulation recommended as well as continued chewing gum. 04/11/2024 CBC with no marked WC elevation or left shift and remains afebrile. #2. Hypokalemia: Admission K+ 3.3, magnesium level requested and noted to be 1.9, supplementation given, 04/11/2024 potassium 3.7, resolved, repeat level in AM. #3. IBS-C type: We will continue patient home lubiprostone home regimen, complicates presentation as noted above. #4. Chronic normocytic anemia: Admission hemoglobin 13.0, MCV 91.6, previous baseline has appeared primarily 10-12 but occasionally in the 13 range, 04/10/2024 hemoglobin 11.5, MCV 91.9-> 04/11/2024 hemoglobin 11.2, MCV 91.3, stable, will continue to trend. #5. Anxiety and depression: We will continue patient home duloxetine home regimen. #6. Hypertension: Continue home regimen including lisinopril with hold parameters as needed, PRN hydralazine. #7. GI prophylaxis/GERD: Maintained on oral PPI. #8. DVT prophylaxis: Lovenox. Charges/Coding Visit Charges Inpatient E&M: 45481 Subs Hosp L2
--- NOTE | 2024-04-11 07:32 | PCM.PN.SRG ---
Subjective Subjective Patient says she is passing some flatus. She says that the suppository did not help much. She is still very distended. Denies nausea or vomiting. She says she is tolerating liquid diet. Objective Data Objective Data Vital Signs: Vital Signs Temp Pulse Resp BP Pulse Ox O2 Del Method O2 Flow Rate 98.5 F 73 18 131/74 H 99 Nasal Cannula 2 04/11/24 04:16 04/11/24 04:16 04/11/24 04:16 04/11/24 04:16 04/11/24 04:16 04/11/24 04:16 04/11/24 04:16 FiO2 96 04/08/24 20:47 Oxygen Flow Rate (L/min) 2 Oxygen Delivery Method Nasal Cannula Weight: 209 lb 10.554 oz Body Mass Index (BMI) 32.8 Intake & Output: Intake and Output for Last 24 Hours 04/09/24 04/10/24 04/11/24 23:59 23:59 23:59 Intake Total 265 / 265 470 / 470 Output Total 360 / 360 Balance 265 / 265 110 / 110 Lab / Micro Data 04/10/24 08:07 04/10/24 08:02 Labs: Laboratory Results - last 24 hr 04/10/24 08:02: Sodium 136, Potassium 3.3 L, Chloride 103, Carbon Dioxide 24.0, Anion Gap 9, BUN 11, Creatinine 0.76, Estim Creat Clear Calc 94.32, Est GFR (MDRD) Af Amer 100, Est GFR (MDRD) Non-Af 82, BUN/Creatinine Ratio 14.4, Glucose 90, Calcium 9.0, Magnesium 1.9, Total Bilirubin 0.50, AST 24, ALT 25, Alkaline Phosphatase 49, Total Protein 6.6, Albumin 3.2, Globulin 3.4, Albumin/Globulin Ratio 0.9 04/10/24 08:07: WBC 6.2, RBC 3.70 L, Hgb 11.5 L, Hct 34.0 L, MCV 91.9, MCH 31.1, MCHC 33.8, RDW Std Deviation 41.1, RDW Coeff of Rossy 12.2, Plt Count 213, MPV 9.4, Immature Gran % (Auto) 0.300, Neut % (Auto) 70.0, Lymph % (Auto) 20.5, [place] % (Auto) 7.7, Eos % (Auto) 0.5, Baso % (Auto) 1.0, Absolute Neuts (auto) 4.4, Absolute Lymphs (auto) 1.28, Nucleated RBC % 0 Micro: Microbiology 04/10/24 16:00 Stool Stool Lactoferrin - Final 04/10/24 16:00 Stool Enteric Bacteriology - Final Radiography Diagnostic Testing: Radiology Impression KUB X-Ray 04/10/24 08:27 IMPRESSION: Persistent colonic distention although there has been improvement as compared to prior study. Electronically Signed: Sanchez Cohen MD at 10:10 EST , Physical Exam Const oriented x3 and no apparent distress Resp normal respiratory effort GI soft to palpation Inspection: abdominal distention Assessment & Plan Assessment/Plan (1) Abdominal pain: QUALIFIERS: Abdominal location: generalized Qualified Code(s): R10.84 - Generalized abdominal pain PLAN: Patient is likely having an ileus after her colonoscopy. Unsure as to why. Continue to encourage ambulation and getting up to the chair. Continue liquids but I would not add a regular diet until she is back to her normal size. I do not believe the patient has a physical obstruction as she just had a colonoscopy that was normal. Amarjit Verduzco MD Pager: [facility] [address] [place] [address], [address] [place] [address] Office:
[2024-04-11 08:03] LABS: Absolute Lymphocyte Count 1.31 X10^3/uL (0.83-4.51); Absolute Neutrophil Count 3.1 X10^3/uL (2.0-7.7); Basophil# 0.04 X10^3/uL; Basophil% 0.8 % (0-1); Eosinophil# 0.09 X10^3/uL; Eosinophils% 1.8 % (0-5); Hematocrit 32.7 % (37-47); Hemoglobin 11.2 g/dL (12.0-15.0); Lymphocyte # 1.31 X10^3/ul (0.83-4.51); Mean Corp Hgb Conc 34.3 g/dL (32-36); Mean Corpuscular Hgb 31.3 pg (27.0-32.0); Mean Corpuscular Volume 91.3 fL (81-99); Mean Platelet Vol. 9.9 fl (6.2-12.0); Monocyte% 9.9 % (0-10); NRBC Flagged by Analyzer 0 % (0-5); Neutrophil # 3.08 X10^3/uL (2.7-7.7); Neutrophil % 61.1 % (47-70); Platelet Count 232 K/mm3 (150-450); RBC Distribution Width SD 40.2 fl (35.1-43.9); Red Blood Count 3.58 M/mm3 (4.2-5.4)
[2024-04-11 08:40] VITALS: BP 125/72; PULSE 81; RESP 18; TEMP 36.9; O2SAT 98
[2024-04-11] MEDS: Polyethylene Glycol 3350 17 GM PACKET PO (08:47)
[2024-04-11] MEDS: Pantoprazole Sodium 20 MG Tablet PO ×2 (08:47→21:00)
[2024-04-11] MEDS: Lactobacillis Acidophilus 1 CAP PO ×4 (08:47→21:00)
[2024-04-11] MEDS: LUBIPROSTONE 8 MCG CAPSULE PO ×2 (08:47→17:27)
[2024-04-11] MEDS: Enoxaparin 40 MG/0.4 ML Syringe SC (08:48)
[2024-04-11] MEDS: Senna Tablet 1 TABLET PO ×2 (08:48→21:00)
[2024-04-11] MEDS: Triamterene 37.5MG/Hctz 25MG Capsule 1 CAP PO (08:48)
[2024-04-11] MEDS: Lisinopril 10 MG Tablet PO (08:48)
[2024-04-11] MEDS: DULoxetine Hcl 60 MG Capsule PO (08:52)
[2024-04-11 09:12] LABS: AST(SGOT) 22 U/L (15-37); Alanine Aminotransfer ALT/SGPT 23 U/L (13-56); Albumin, Serum 3.1 g/dL (3.2-5.0); Alkaline Phosphatase 47 U/L (45-117); Anion Gap 8 (5-15); BUN 10 mg/dL (7-18); BUN/Creat Ratio 13.2 RATIO (10-20); Calcium,Total 8.9 mg/dL (8.5-10.1); Chloride 104 mmol/L (98-107); Creatinine, Serum 0.76 mg/dL (0.55-1.02); EST Glomerular Filtration Rate 83 mL/min (>60); Est Glom Filt Rate - Afr Amer 100 mL/min (>60); Estimated Creatinine Clearance 94.37 ml/min; Globulin 3.2 g/dL (2.2-4.2); Glucose 92 mg/dL (74-106); Potassium 3.7 mmol/L (3.5-5.1); Protein, Total 6.3 g/dL (6.4-8.2); Sodium Level 139 mmol/L (136-145)
[2024-04-11 14:25] VITALS: BP 123/79; PULSE 76; RESP 16; TEMP 37; O2SAT 98
[2024-04-11 20:57] VITALS: BP 124/71; PULSE 68; RESP 18; TEMP 37.2; O2SAT 96
[2024-04-11] MEDS: traZODone 100 MG Tablet PO (21:00)
[2024-04-12 04:30] VITALS: BP 119/72; PULSE 74; RESP 18; TEMP 37; O2SAT 93
[2024-04-12 05:25] LABS: Absolute Lymphocyte Count 1.55 X10^3/uL (0.83-4.51); Absolute Neutrophil Count 3.1 X10^3/uL (2.0-7.7); Basophil# 0.05 X10^3/uL; Basophil% 0.9 % (0-1); Eosinophil# 0.12 X10^3/uL; Eosinophils% 2.3 % (0-5); Hematocrit 34.5 % (37-47); Hemoglobin 11.4 g/dL (12.0-15.0); Lymphocyte # 1.55 X10^3/ul (0.83-4.51); Lymphocyte % 29.3 % (19-41); Mean Corpuscular Hgb 30.2 pg (27.0-32.0); Mean Corpuscular Volume 91.5 fL (81-99); Mean Platelet Vol. 9.8 fl (6.2-12.0); Monocyte# 0.47 X10^3/uL; Monocyte% 8.9 % (0-10); NRBC Flagged by Analyzer 0 % (0-5); Neutrophil # 3.08 X10^3/uL (2.7-7.7); Neutrophil % 58.2 % (47-70); Platelet Count 234 K/mm3 (150-450); RBC Distribution Width CV 12.2 % (11.6-14.6); RBC Distribution Width SD 40.8 fl (35.1-43.9); Red Blood Count 3.77 M/mm3 (4.2-5.4); White Blood Count 5.3 K/mm3 (4.4-11.0)
[2024-04-12 05:27] VITALS: BMI 31.4
[2024-04-12 06:08] LABS: AST(SGOT) 21 U/L (15-37); Alanine Aminotransfer ALT/SGPT 29 U/L (13-56); Albumin, Serum 3.2 g/dL (3.2-5.0); Alkaline Phosphatase 44 U/L (45-117); Anion Gap 7 (5-15); BUN 11 mg/dL (7-18); BUN/Creat Ratio 14.2 RATIO (10-20); Calcium,Total 9.4 mg/dL (8.5-10.1); Chloride 102 mmol/L (98-107); Creatinine, Serum 0.78 mg/dL (0.55-1.02); EST Glomerular Filtration Rate 81 mL/min (>60); Est Glom Filt Rate - Afr Amer 98 mL/min (>60); Estimated Creatinine Clearance 89.99 ml/min; Globulin 3.3 g/dL (2.2-4.2); Glucose 96 mg/dL (74-106); Potassium 3.7 mmol/L (3.5-5.1); Protein, Total 6.5 g/dL (6.4-8.2); Sodium Level 136 mmol/L (136-145)
--- NOTE | 2024-04-12 07:13 | PN.HOSP_ITS ---
Reason for Visit Reason for Visit: Diagnoses Obesity, class 1 (04/11/24) Hypokalemia (04/11/24) Essential (primary) hypertension (04/11/24) Gastro-esophageal reflux disease without esophagitis (04/11/24) Irritable bowel syndrome, unspecified (04/11/24) Generalized abdominal pain (04/11/24) Nausea with vomiting, unspecified (04/11/24) Objective Data Objective Data Vital Signs: Vital Signs Temp Pulse Resp BP Pulse Ox O2 Del Method O2 Flow Rate 98.6 F 74 18 119/72 93 Room Air 2 04/12/24 04:30 04/12/24 04:30 04/12/24 04:30 04/12/24 04:30 04/12/24 04:30 04/12/24 04:30 04/11/24 04:16 FiO2 96 04/08/24 20:47 Oxygen Flow Rate (L/min) 2 Oxygen Delivery Method Room Air Weight: 200 lb 13.458 oz Body Mass Index (BMI) 31.4 Intake & Output: Intake and Output for Last 24 Hours 04/10/24 04/11/24 04/12/24 23:59 23:59 23:59 Intake Total 470 / 470 Output Total 360 / 360 Balance 110 / 110 Lab / Micro Data 04/12/24 04:45 04/12/24 04:45 Labs: Laboratory Results - last 24 hr 04/11/24 06:50: WBC 5.0, RBC 3.58 L, Hgb 11.2 L, Hct 32.7 L, MCV 91.3, MCH 31.3, MCHC 34.3, RDW Std Deviation 40.2, RDW Coeff of Rossy 12.0, Plt Count 232, MPV 9.9, Immature Gran % (Auto) 0.400, Neut % (Auto) 61.1, Lymph % (Auto) 26.0, [place] % (Auto) 9.9, Eos % (Auto) 1.8, Baso % (Auto) 0.8, Absolute Neuts (auto) 3.1, Absolute Lymphs (auto) 1.31, Nucleated RBC % 0, Sodium 139, Potassium 3.7, Chloride 104, Carbon Dioxide 27.0, Anion Gap 8, BUN 10, Creatinine 0.76, Estim Creat Clear Calc 94.37, Est GFR (MDRD) Af Amer 100, Est GFR (MDRD) Non-Af 83, BUN/Creatinine Ratio 13.2, Glucose 92, Calcium 8.9, Total Bilirubin 0.50, AST 22, ALT 23, Alkaline Phosphatase 47, Total Protein 6.3 L, Albumin 3.1 L, Globulin 3.2, Albumin/Globulin Ratio 1.0 04/12/24 04:45: WBC 5.3, RBC 3.77 L, Hgb 11.4 L, Hct 34.5 L, MCV 91.5, MCH 30.2, MCHC 33.0, RDW Std Deviation 40.8, RDW Coeff of Rossy 12.2, Plt Count 234, MPV 9.8, Immature Gran % (Auto) 0.400, Neut % (Auto) 58.2, Lymph % (Auto) 29.3, [place] % (Auto) 8.9, Eos % (Auto) 2.3, Baso % (Auto) 0.9, Absolute Neuts (auto) 3.1, Absolute Lymphs (auto) 1.55, Nucleated RBC % 0, Sodium 136, Potassium 3.7, Chloride 102, Carbon Dioxide 27.0, Anion Gap 7, BUN 11, Creatinine 0.78, Estim Creat Clear Calc 89.99, Est GFR (MDRD) Af Amer 98, Est GFR (MDRD) Non-Af 81, BUN/Creatinine Ratio 14.2, Glucose 96, Calcium 9.4, Total Bilirubin 0.50, AST 21, ALT 29, Alkaline Phosphatase 44 L, Total Protein 6.5, Albumin 3.2, Globulin 3.3, Albumin/Globulin Ratio 1.0 Micro: Microbiology 04/11/24 08:57 Stool Clostridioides difficile (PCR) - Final 04/10/24 16:00 Stool Stool Lactoferrin - Final 04/10/24 16:00 Stool Enteric Bacteriology - Final Physical Exam Narrative Physical Examination: General: Awake, alert, oriented x 3 and cooperative, laying in the MS bed, notes her abdomen feels better and feels less distended, rating it 1-2 out of 10 in severity. Skin: Normal color, normal turgor, no icterus, no cyanosis except for occasional stage ecchymoses likely from lab draws HEENT: AT/NC, EOMI, PERRLA, MMM. Lungs: CTA bilaterally, moderate effort, mild decrease BL bases, no rales, ronchi or wheezing. Heart: Regular rate and rhythm; no gallop, rub audible. Abdomen: Soft, more so than day prior, still mildly distended but less tympanitic, less hyperactive bowel sound concurrently. Extremities: No cyanosis, clubbing, or edema. Neurological: Patient awake, alert, oriented as noted, cognitive function intact; pupils equally reactive to light and accommodation, cranial nerves grossly normal, moving all 4 extremities, no focal deficits, strength improving, mildly globally decreased, improving Psychiatric: Affect appears fatigued otherwise normal, no acute evidence of depressive or anxiety feelings. Assessment & Plan Assessment/Plan (1) Abdominal pain: QUALIFIERS: Abdominal location: generalized Qualified Code(s): R 10.84 - Generalized abdominal pain (2) Intractable nausea and vomiting: PLAN: Plan The patient is a 58 y/o F w/ PMHx: GERD, IBS-C, HTN, Anxiety and Depression, Obesity, Chronic anemia who presents to the [facility] ED on 04/07/24 with persistent intractable abdominal discomfort, distention, nausea and emesis following recent colonoscopy. #1. Acute intractable abdominal pain with distention with nausea and emesis following recent endoscopy with initial concern for bowel obstruction, felt ruled out with low suspicion per general surgery and felt related to gaseous distention secondary to recent endoscopy, slowly improving, ileus: Admitted to medical surgical floor, CT abdomen pelvis upon presentation with gaseous distention with no other acute abnormality with repeat CT 04/09/24 with noted colonic distention and questionable obstructive lesion in the mid sigmoid colon but again upon surgery reevaluation of imaging reportedly still felt more consistent with distention secondary to recent endoscopy with eventual clinical improvement and onset of flatus with this initiation of clear liquids, 04/10/2024 continued improvement thus transition to full liquid, 04/10/2024 later in the day onset of liquid stools with negative C. difficile and negative enteric as well as negative fecal WBCs. 04/11/2024 reevaluation for surgery with recommendation for continuation of her current diet, aggressive ambulation recommended as well as continued chewing gum. 04/11/2024 CBC with no marked WC elevation or left shift and remains afebrile. #2. Hypokalemia: Admission K+ 3.3, magnesium level requested and noted to be 1.9, supplementation given, 04/11/2024 potassium 3.7, resolved, repeat level in AM. #3. IBS-C type: We will continue patient home lubiprostone home regimen, complicates presentation as noted above. #4. Chronic normocytic anemia: Admission hemoglobin 13.0, MCV 91.6, previous baseline has appeared primarily 10-12 but occasionally in the 13 range, 04/10/2024 hemoglobin 11.5, MCV 91.9-> 04/11/2024 hemoglobin 11.2, MCV 91.3, stable, will continue to trend. #5. Anxiety and depression: We will continue patient home duloxetine home regimen. #6. Hypertension: Continue home regimen including lisinopril with hold parameters as needed, PRN hydralazine. #7. GI prophylaxis/GERD: Maintained on oral PPI. #8. DVT prophylaxis: Lovenox.
--- NOTE | 2024-04-12 09:32 | PCM.DC.SUM ---
Providers Date of Admission: 04/07/24 Date of Discharge: 04/12/24 Primary Care Physician: Dr. Simone Posey MD Consultations 04/10/24 11:47 Consult: General Surgery Routine Consulting Provider: Asif Santos Reason for Consult: Ileus ? obstruction reviewed w/ Jael Mcdowell EMERGENT Consult: No MD Notified: Yes Date Notified: 04/10/24 Time Notified: 11:47 Method of Notification: Verbal Method of Consult:: In-Person Comments:: Reviewed case with Jael Mcdowell Reason For Visit: ABDOMINAL PAIN AND Diagnosis Discharge Diagnosis (1) Abdominal pain: Status: Acute Code(s): R10.9 - Unspecified abdominal pain Qualifiers: Abdominal location: generalized Qualified Code(s): R10.84 - Generalized abdominal pain (2) Intractable nausea and vomiting: Status: Acute Code(s): R11.2 - Nausea with vomiting, unspecified Plan: DISCHARGE DIAGNOSES: #1. Acute intractable abdominal pain with distention with nausea and emesis following recent endoscopy with initial concern for bowel obstruction, felt ruled out with low suspicion per general surgery and felt related to gaseous distention secondary to recent endoscopy, slowly improving, ileus #2. Hypokalemia, Resolved #3. IBS-C type #4. Chronic normocytic anemia #5. Anxiety and depression #6. Hypertension #7. GERD #8. Obesity Medications at Discharge Home Medications albuterol sulfate 90 mcg/actuation aerosol inhaler (Ventolin HFA) 1 puff inhalation Q4H PRN PRN Sob &/Or Wheezing 08/09/16 omeprazole 20 mg capsule,delayed release 20 mg PO DAILY 08/09/16 lisinopril 10 mg tablet 10 mg PO DAILY ##0 08/14/16 triamterene 37.5 mg-hydrochlorothiazide 25 mg capsule 1 cap PO DAILY ##0 08/14/16 duloxetine 60 mg capsule,delayed release 60 mg PO DAILY 10/07/21 polyethylene glycol 3350 17 gram oral powder packet (Miralax) 17 g PO DAILY 10/07/21 lubiprostone 8 mcg capsule 8 mcg PO BID 04/07/24 trazodone 100 mg tablet 100 mg PO QHS 04/07/24 ondansetron HCl 4 mg tablet 4 mg PO Q8H PRN PRN nausea and vomiting 5 days #20 tabs 04/12/24 sennosides 8.6 mg tablet (senna) 8.6 mg PO BID 30 days #60 tabs 04/12/24 Hospital Course Operations None Procedures EKG Summary of Care Provided Minutes Spent on Discharge: 35 Hospital Course: The patient is a 58 y/o F w/ PMHx: GERD, IBS-C, HTN, Anxiety and Depression, Obesity, Chronic anemia who presented to the [facility] ED on 04/07/24 with persistent intractable abdominal discomfort, distention, nausea and emesis following recent colonoscopy. Admitted to medical surgical floor, CT abdomen pelvis upon presentation with gaseous distention with no other acute abnormality with repeat CT 04/09/24 with noted colonic distention and questionable obstructive lesion in the mid sigmoid colon but again upon surgery reevaluation of imaging reportedly still felt more consistent with distention secondary to recent endoscopy with eventual clinical improvement and onset of flatus with this initiation of clear liquids, 04/10/2024 continued improvement thus transition to full liquid, 04/10/2024 later in the day onset of liquid stools with negative C. difficile and negative enteric as well as negative fecal WBCs. 04/11/2024 reevaluation for surgery with recommendation for continuation of her current diet, aggressive ambulation recommended as well as continued chewing gum. During admission patient did have noted chronic anemia with admission hemoglobin 13.0, MCV 91.6, previous baseline has appeared primarily 10-12 but occasionally in the 13 range, 04/10/2024 hemoglobin 11.5, MCV 91.9-> 04/12/24 hemoglobin 11.4, MCV 91.5, encourage continued outpatient evaluation and follow-up. Also upon admission patient with noted K+ 3.3, magnesium level requested and noted to be 1.9, supplementation given, 04/11/2024 potassium 3.7, resolved, 04/12/2024 potassium 3.7. 04/12/24 continued to clinically improve thus patient transitioned to regular diet given no abdominal pain, lessened distention, ongoing flatus and bowel movements. Encouraged her to follow-up early with Dr. Huffman to review current presentation and if any concerns arose to call him earlier in addition to her primary care physician. DAY OF DISCHARGE PROGRESS NOTE: Subjective: Patient without acute event overnight per self and nursing report. Patient with continued liquid bowel movements which is not surprising given she is only on a maximum of full liquids and continued flatus with lessened abdominal distention. Patient denies fever, chills, nausea, emesis, abdominal pain, chest pain or dyspnea. Patient agreeable to discharge to home. Patient will be discharged with follow-up with primary care physician within 3-5 days in addition to follow-up with Dr. Huffman. Objective: T98.8, heart rate 78, BP 112/75, respiratory rate 16, 96% on room air. Physical Examination: General: awake, alert, oriented x 3 and cooperative, seated upright in the MS bed, no acute distress, notes feeling improved. Skin: normal color, turgor, no icterus, cyanosis except for very staged ecchymoses likely from lab draws and IV placements. HEENT: AT/NC, EOMI, PERRLA, MMM. Lungs: CTA bilaterally, moderate effort, mild decrease BL bases, no rales, ronchi or wheezing; Heart: Regular rate and rhythm; no gallop, rub audible. Abdomen: soft, NTTP, appears even less distended, not tympanitic, less and more normalized bowel sounds. Extremities: no cyanosis, clubbing, or edema. Neurological: patient awake, alert, oriented as noted, cognitive function appears intact upon questioning,; pupils equally reactive to light and accommodation, cranial nerves grossly normal, moving all 4 extremities, strength improved, appropriate. Psychiatric: affect appears normal, no acute evidence of depressive or anxiety feelings. Assessment and Plan: Please see hospital summary above. Weight / BMI Weight Weight: 200 lb 13.458 oz Body Mass Index (BMI) 31.4 ABG / Lab / Microbiology Data 04/12/24 04:45 04/12/24 04:45 Laboratory: Laboratory Results - last 24 hr 04/12/24 04:45: WBC 5.3, RBC 3.77 L, Hgb 11.4 L, Hct 34.5 L, MCV 91.5, MCH 30.2, MCHC 33.0, RDW Std Deviation 40.8, RDW Coeff of Rossy 12.2, Plt Count 234, MPV 9.8, Immature Gran % (Auto) 0.400, Neut % (Auto) 58.2, Lymph % (Auto) 29.3, [place] % (Auto) 8.9, Eos % (Auto) 2.3, Baso % (Auto) 0.9, Absolute Neuts (auto) 3.1, Absolute Lymphs (auto) 1.55, Nucleated RBC % 0, Sodium 136, Potassium 3.7, Chloride 102, Carbon Dioxide 27.0, Anion Gap 7, BUN 11, Creatinine 0.78, Estim Creat Clear Calc 89.99, Est GFR (MDRD) Af Amer 98, Est GFR (MDRD) Non-Af 81, BUN/Creatinine Ratio 14.2, Glucose 96, Calcium 9.4, Total Bilirubin 0.50, AST 21, ALT 29, Alkaline Phosphatase 44 L, Total Protein 6.5, Albumin 3.2, Globulin 3.3, Albumin/Globulin Ratio 1.0 Microbiology: Microbiology 04/11/24 08:57 Stool Clostridioides difficile (PCR) - Final 04/10/24 16:00 Stool Stool Lactoferrin - Final 04/10/24 16:00 Stool Enteric Bacteriology - Final D/C Instructions Discharge Diet: Low fat / Low cholesterol May resume sexual activity in: 1-2 weeks Weight Bearing Status: Weight bearing as tolerated Call your doctor if you observe: Fever of 101 or Higher, Inability to have a bowel movement, Shortness of breath, Dizziness, Chest pain, Increased palpitations (irregular heartbeat) and Uncontrolled pain Meaningful Use Info Meaningful Use Meaningful Use Diagnoses (Choose all that apply): None applicable Ischemic Stroke Statin Dosing Therapy Reference: STATIN DOSE THERAPY REFERENCE: * Patients > 75 years receive moderate or high dose statin therapy. * Patients 75 years or YOUNGER should receive HIGH intensity statin dose unless contraindicated. You will be required to document reason for non-treatment if statin daily dose does not meet guidelines. HIGH DOSE STATIN THERAPY DAILY Atorvastatin > than or = to 40 mg Rosuvastatin > than or = to 20 mg Amlodipine + Atorvastatin > than or = to 2.5/40 mg Ezetimibe + Simvastatin 10/80 mg Simvastatin 80mg Discharge Plan Admission Admit Date/Time: 04/11/24 13:45 Primary Reason for Your Visit: Abdominal pain, N/V secondary to Ileus after c-scope Attending Provider: Lucy Topete Primary Care Provider: Simone Posey Consulting Providers: Krishna Mckeon; Thom Felix; Asif Santos Instructions Patient Instructions: Ileus Additional Instructions / Restrictions: ADDITIONAL INSTRUCTIONS: Please continue aggressive activity as your bowels are more likely to move well if you are active and moving or self. We strongly encourage frequent walks throughout the day and appropriate oral water hydration. Eye surgery previously recommended as well you may utilize gum to help stimulate bowel movements as well. Please follow-up as directed with your primary care physician and with Dr. Huffman following this recent admission. If any concerns arise please do not hesitate to contact Dr. Huffman earlier and if necessary may seek emergency care at his facility. Discharge Orders/Prescriptions Prescriptions: New sennosides [senna] 8.6 mg Tablet 8.6 mg PO BID 30 Days Qty: 60 0RF Rx Instructions: Hold for loose stools/diarrhea ondansetron HCl 4 mg tablet 4 mg PO Q8H PRN PRN (Reason: nausea and vomiting) 5 Days Qty: 20 0RF Continued omeprazole 20 MG capsule 20 mg PO DAILY Patient Comments: acid reflux albuterol sulfate [Ventolin HFA] 1 INHALER inhaler 1 puff inhalation Q4H PRN PRN (Reason: Sob &/Or Wheezing) Patient Comments: breathing triamterene-hydrochlorothiazid 1 CAP capsule 1 cap PO DAILY Qty: 0 0RF Patient Comments: blood pressure lisinopril 10 MG tablet 10 mg PO DAILY Qty: 0 0RF Patient Comments: blood pressure polyethylene glycol 3350 [Miralax] 17 gram Powder In Packet 17 g PO DAILY duloxetine 60 mg capsule,delayed release(DR/EC) 60 mg PO DAILY trazodone 100 mg tablet 100 mg PO QHS lubiprostone 8 mcg capsule 8 mcg PO BID Discontinued metronidazole [metronidazole] 500 MG tablet 500 mg PO BID Qty: 20 0RF Referrals / Follow Up: Simone Posey MD [Primary Care Provider] - (Follow-up within 3-5 days to review admission.) Curt Huffman MD [Med Staff - Active Staff] - (Please follow-up within 2-3 days to review recent prolonged admission following endoscopy with your surgeon. Call the office earlier if any concerns arise.) Disposition Disposition (needs filled in before D/C Order can be placed): Home, Self Care Charges/Coding Visit Charges Inpatient E&M: 89374 Disch Hosp >30min
[2024-04-12 09:44] VITALS: BP 112/75; PULSE 78; RESP 16; TEMP 37.1; O2SAT 96
[2024-04-12] MEDS: Lactobacillis Acidophilus 1 CAP PO ×2 (09:48→13:17)
[2024-04-12] MEDS: LUBIPROSTONE 8 MCG CAPSULE PO (09:48)
[2024-04-12] MEDS: Senna Tablet 1 TABLET PO (09:48)
[2024-04-12] MEDS: Triamterene 37.5MG/Hctz 25MG Capsule 1 CAP PO (09:48)
[2024-04-12] MEDS: Pantoprazole Sodium 20 MG Tablet PO (09:49)
[2024-04-12] MEDS: Lisinopril 10 MG Tablet PO (09:49)
[2024-04-12] MEDS: Enoxaparin 40 MG/0.4 ML Syringe SC (09:49)
[2024-04-12] MEDS: Polyethylene Glycol 3350 17 GM PACKET PO (09:49)
[2024-04-12] MEDS: DULoxetine Hcl 60 MG Capsule PO (09:49)
--- NOTE | 2024-04-12 10:41 | PN.SURG_ITS ---
Subjective Subjective Patient doing well this morning. She states that she is passing gas and having bowel movements. She states that her abdomen is still somewhat distended but she has really no pain or discomfort Objective Data Objective Data Vital Signs: Vital Signs Temp Pulse Resp BP Pulse Ox O2 Del Method O2 Flow Rate 98.8 F 78 16 112/75 96 Room Air 2 04/12/24 09:44 04/12/24 09:44 04/12/24 09:44 04/12/24 09:44 04/12/24 09:44 04/12/24 09:44 04/11/24 04:16 FiO2 96 04/08/24 20:47 Oxygen Flow Rate (L/min) 2 Oxygen Delivery Method Room Air Weight: 200 lb 13.458 oz Body Mass Index (BMI) 31.4 Intake & Output: Intake and Output for Last 24 Hours 04/10/24 04/11/24 04/12/24 23:59 23:59 23:59 Intake Total 470 / 470 Output Total 360 / 360 Balance 110 / 110 Lab / Micro Data 04/12/24 04:45 04/12/24 04:45 Labs: Laboratory Results - last 24 hr 04/12/24 04:45: WBC 5.3, RBC 3.77 L, Hgb 11.4 L, Hct 34.5 L, MCV 91.5, MCH 30.2, MCHC 33.0, RDW Std Deviation 40.8, RDW Coeff of Rossy 12.2, Plt Count 234, MPV 9.8, Immature Gran % (Auto) 0.400, Neut % (Auto) 58.2, Lymph % (Auto) 29.3, [place] % (Auto) 8.9, Eos % (Auto) 2.3, Baso % (Auto) 0.9, Absolute Neuts (auto) 3.1, Absolute Lymphs (auto) 1.55, Nucleated RBC % 0, Sodium 136, Potassium 3.7, Chloride 102, Carbon Dioxide 27.0, Anion Gap 7, BUN 11, Creatinine 0.78, Estim Creat Clear Calc 89.99, Est GFR (MDRD) Af Amer 98, Est GFR (MDRD) Non-Af 81, BUN/Creatinine Ratio 14.2, Glucose 96, Calcium 9.4, Total Bilirubin 0.50, AST 21, ALT 29, Alkaline Phosphatase 44 L, Total Protein 6.5, Albumin 3.2, Globulin 3.3, Albumin/Globulin Ratio 1.0 Micro: Microbiology 04/11/24 08:57 Stool Clostridioides difficile (PCR) - Final 04/10/24 16:00 Stool Stool Lactoferrin - Final 04/10/24 16:00 Stool Enteric Bacteriology - Final Physical Exam Narrative She is alert and oriented x 3. She is in no acute distress. Abdomen is somewhat distended but no tenderness to palpation. Assessment & Plan Assessment/Plan (1) Ileus: PLAN: Plan Patient is a 58-year-old female who underwent a recent colonoscopy and I suspect developed an ileus secondary to colonic distention from insufflation. Early ileus seems to be gradually improving. Case was discussed with hospitalist and our plan is to advance her diet today and plan to discharge home later this afternoon if she tolerates diet. Patient is agreeable to this plan. She can follow-up with Dr. Huffman as an outpatient Charges/Coding Visit Charges Inpatient E&M: 27440 Subs Hosp L2
[2024-04-12 13:48] VITALS: BP 126/80; PULSE 80; RESP 16; TEMP 37; O2SAT 100
== END 2024-04-12 17:42 | disposition home or self-care (01) | DRG 389 ==
LOC: ED 16:51 → MS3 21:36
PROVIDERS: Hospitalist; Admitting Provider Internal Medicine; Emergency Provider Surgery; PCP Family Medicine; Visit Provider Family Medicine
DX: K56.7 Ileus, unspecified (principal); K91.89 Other postprocedural complications and disorders of digestive system; D64.9 Anemia, unspecified; F32.A Depression, unspecified; I10 Essential (primary) hypertension; E66.9 Obesity, unspecified; K21.9 Gastro-esophageal reflux disease without esophagitis; E87.6 Hypokalemia; F41.9 Anxiety disorder, unspecified; R14.0 Abdominal distension (gaseous); K58.1 Irritable bowel syndrome with constipation; K44.9 Diaphragmatic hernia without obstruction or gangrene; G43.909 Migraine, unspecified, not intractable, without status migrainosus; R11.2 Nausea with vomiting, unspecified; I49.9 Cardiac arrhythmia, unspecified; K57.90 Diverticulosis of intestine, part unspecified, without perforation or abscess without bleeding; Z90.710 Acquired absence of both cervix and uterus; Z68.31 Body mass index [BMI] 31.0-31.9, adult; R10.84 Generalized abdominal pain; Z79.899 Other long term (current) drug therapy; Z98.1 Arthrodesis status; Y84.8 Other medical procedures as the cause of abnormal reaction of the patient, or of later complication, without mention of misadventure at the time of the procedure; Z90.49 Acquired absence of other specified parts of digestive tract; G89.29 Other chronic pain; Z79.51 Long term (current) use of inhaled steroids; Z88.8 Allergy status to other drugs, medicaments and biological substances; Z98.890 Other specified postprocedural states
CPT/HCPCS: 36415; 74018; 74019; 74177; 80053; 81001; 83605; 83630; 83690; 83735; 84100; 84443; 85025; 87177; 87209; 87493; 87506; 94668; 97161; 99284; Q9967; A4216; J2405

== ENCOUNTER 2024-04-15 17:05 | Emergency (ER) | payer OTHER, SELFPAY ==
[2024-04-15] VITALS (31 sets, daily range): BP systolic 95–146; BP diastolic 52–89; PULSE 79–109; RESP 10–29; TEMP 36.9–37.2; O2SAT 90–97
--- NOTE | 2024-04-15 17:21 | EDS_ITS ---
HPI HPI - GI History of Present Illness Chief Complaint: Abd Pain Narrative Narrative: 58-year-old female past medical history of hypertension, past surgical history of hysterectomy, ovarian cyst removal, and cholecystectomy remotely. Patient presents with nausea vomiting and abdominal pain that she has had since earlier today. She relates history that she had a colonoscopy performed on April 07, approximately [address] Huffman with the [facility]. He took 2 biopsies at that time. She presented to the emergency department to rule out perforation because she had nausea, vomiting, and diffuse abdominal pain. She states that she was released from the hospital on Sunday, 4 days ago. Today, she developed abdominal pain and bloating as well as nausea and vomiting. She vomited 4 times without any blood in her emesis. She is on a restricted diet, so she states that she is not having large bowel movements, but only squirts. Additionally, she relates history that she was told that she had an ileus and that is why she was admitted. She presents with increasing abdominal pain and bloating as well as the nausea and vomiting and states this is how she felt after her colonoscopy which had brought her to the hospital at that time. No exacerbating or alleviating factors. [facility] Medical History Ileus Hearing loss, left Depression Chronic pain GERD (gastroesophageal reflux disease) Irregular heart beat Migraines Diverticulosis Migraines Home Medications ?Medication ?Instructions ?Recorded ?Last Taken ?Type albuterol sulfate 90 mcg/actuation 1 puff inhalation Q4H PRN PRN Sob 08/09/16 Unknown History aerosol inhaler (Ventolin HFA) &/Or Wheezing omeprazole 20 mg capsule,delayed 20 mg PO DAILY 08/09/16 04/06/24 History release lisinopril 10 mg tablet 10 mg PO DAILY ##0 08/14/16 04/07/24 Rx triamterene 37.5 1 cap PO DAILY ##0 08/14/16 04/06/24 Rx mg-hydrochlorothiazide 25 mg capsule duloxetine 60 mg capsule,delayed 60 mg PO DAILY 10/07/21 04/06/24 History release polyethylene glycol 3350 17 gram 17 g PO DAILY 10/07/21 04/04/24 History oral powder packet (Miralax) lubiprostone 8 mcg capsule 8 mcg PO BID 04/07/24 04/03/24 History trazodone 100 mg tablet 100 mg PO QHS 04/07/24 04/06/24 History ondansetron HCl 4 mg tablet 4 mg PO Q8H PRN PRN nausea and 04/12/24 Unknown Rx vomiting 5 days #20 tabs sennosides 8.6 mg tablet (senna) 8.6 mg PO BID 30 days #60 tabs 04/12/24 Unknown Rx Allergy/AdvReac Type Severity Reaction Status Date / Time bupropion (From Wellbutrin) Allergy I LOSE MY Verified 04/15/24 17:05 HEARING AND SMELL metronidazole (From Flagyl) Allergy Itching Verified 04/15/24 17:05 Tetanus Vaccines and Toxoid AdvReac Vomiting Verified 04/15/24 17:05 (Tetanus Vaccines & Toxoid) Surgical History History of herniorrhaphy History of History of appendectomy H/O: hysterectomy History of cholecystectomy H/O spinal fusion Social History Smoking Status: Never smoker ROS ROS ED ROS Narrative Constitutional: No fever, no chills. HEENT: No sore throat. No neck pain. No loss of vision. No rhinorrhea. Cardiovascular: No chest pain. No palpitations. No pedal edema. Respiratory: No cough, no shortness of breath. Abdominal: Positive diffuse to lower abdominal pain. For episodes of nausea and vomiting. No hematemesis. Positive abdominal bloating. Small amounts of liquid stool. Genitourinary: No dysuria. No hematuria. Musculoskeletal: No myalgias. No arthralgias. Neurologic: No headaches. No dizziness. No lightheadedness. Skin: No rash. No change in color. Psychiatric: No depression. No anxiety. EXAM Physical Exam Narrative Exam Narrative: Afebrile. Vital signs noted. Appears uncomfortable. Cardiovascular examination reveals a mild tachycardia at 109 bpm. Lungs are clear to auscultation bilaterally. Abdomen is soft and mildly distended however with hypoactive bowel sounds. Diffuse tenderness to palpation but mainly in the bilateral lower quadrants. Neurological examination shows her to be awake, and alert. Const Vital Signs: 04/15/24 17:05 04/15/24 18:07 04/15/24 19:00 Temperature 98.7 F 98.9 F 98.6 F Temperature Source Oral Oral Oral Pulse Rate 109 H 90 87 Respiratory Rate 22 H 25 H 18 Blood Pressure 104/77 115/89 H 95/84 H Blood Pressure Mean 86 97 87 Pulse Ox 97 97 96 Oxygen Delivery Method Room Air Room Air Room Air 04/15/24 19:29 04/15/24 20:00 04/15/24 21:00 Temperature 98.7 F 98.7 F Temperature Source Oral Oral Pulse Rate 87 82 84 Respiratory Rate 18 16 13 Blood Pressure 123/87 H 117/88 H 123/75 H Blood Pressure Mean 99 97 91 Pulse Ox 95 97 94 Oxygen Delivery Method Room Air Room Air Room Air MDM MDM MDM Narrative Medical decision making narrative: Differential diagnosis includes but not limited to partial small bowel obstruction versus ileus versus irritable bowel syndrome versus pancreatitis. I reviewed the patient's prior records. She was administered morphine and ondansetron for analgesia. I do feel CT imaging with IV contrast is indicated. I will also obtain baseline laboratories including lipase, CBC, and CMP. I reviewed her laboratory work and she has elevated white count of 13.4 which may be demargination from her vomiting. Hemoglobin slightly hemoconcentrated at 15.7, platelet count normal at 403. Sodium slightly low at 132 with potassium 3.7, CO2 normal at 21.0, BUN slightly elevated at 23 and she has an acute kidney injury with a creatinine of 1.59. Glucose elevated at 146 but normal anion gap of 13. Urinalysis is positive for ketones. There are 5-10 WBCs but no feel she requires antibiotics. I reviewed the radiology report of the CT of the abdomen and pelvis which does not show a distinct transition point for obstruction but comments on the possibility of colonic obstruction at the area of the sigmoid colon. I discussed patient with her general surgeon Dr. Huffman, who reviewed the CT imaging and states that is where he had biopsied and she had signs of scarring perhaps from diverticular disease, but no mass. I discussed the patient with Dr. Topete with hospitalist medicine here who requested that I speak with Dr. Carr with general surgery as there was difficulty the last time she was admitted because she has known to another surgeon at an outside facility. I discussed the patient with Dr. Carr who recommended transfer. I then discussed patient with the PA for hospitalist medicine as the [facility] transfer line states they discussed the patient with Dr. Huffman who suggested admission under hospitalist medicine. He has been accepted by Dr. Asif Fagan. Disposition is transferred in stable condition. History & Record Review Discussion w/independent historian: Patient Additional record(s) reviewed:: Prior inpatient record and Prior ED visit Lab Data Attestation: I reviewed the patient's lab results. Labs: Laboratory Results - last 24 hr 04/15/24 04/15/24 17:26 18:32 WBC 13.4 H RBC 5.16 Hgb 15.7 H Hct 46.8 MCV 90.7 MCH 30.4 MCHC 33.5 RDW Std Deviation 40.7 RDW Coeff of [place] 12.3 Plt Count 403 MPV 9.6 Immature Gran % (Auto) 0.400 Neut % (Auto) 79.4 H Lymph % (Auto) 13.7 L [place] % (Auto) 5.5 Eos % (Auto) 0.4 Baso % (Auto) 0.6 Absolute Neuts (auto) 10.6 H Absolute Lymphs (auto) 1.83 Nucleated RBC % 0 Sodium 132 L Potassium 3.7 Chloride 98 Carbon Dioxide 21.0 Anion Gap 13 BUN 23 H Creatinine 1.59 H Estim Creat Clear Calc 43.18 Est GFR (MDRD) Af Amer 43 L Est GFR (MDRD) Non-Af 35 L BUN/Creatinine Ratio 14.5 Glucose 146 H Calcium 10.7 H Total Bilirubin 1.00 AST 27 ALT 52 Alkaline Phosphatase 63 Total Protein 8.9 H Albumin 4.2 Globulin 4.7 H Albumin/Globulin Ratio 0.9 Lipase 65 Urine Color Yellow Urine Clarity Sl. Cloudy Urine pH 7.0 Ur Specific [place] 1.010 Urine Protein 100 H Urine Glucose (UA) Normal Urine Ketones 50 H Urine Occult Blood 10 H Urine Nitrite Negative Urine Bilirubin 1 H Urine Urobilinogen 1 H Ur Leukocyte Esterase 100 H Urine RBC 0 SEEN Urine WBC 5-10 SEEN Ur Squamous Epith Cells 0-5 SEEN Urine Bacteria 3+ Hyaline Casts 0-5 SEEN Urine Mucus 0 SEEN Radiography Diagnostic Testing: Clinical Impression(s) from Imaging Studies Abdomen/Pelvis CT 04/15/24 18:28 IMPRESSION: Possible partial obstructing distal colonic obstruction at the level of the sigmoid colon versus severe ileus. Clinical correlation is recommended Postop change status post hysterectomy and cholecystectomy Electronically Signed: Og Oscar MD at 19:20 EST , Management Discussion w/another healthcare provider: Hospitalist and [employer] Discharge Plan Triage Chief Complaint: Abd Pain ED Provider: Feroz Coyne Dx/Rx/DC Orders Clinical Impression: Abdominal pain, Nausea and vomiting, Ileus Prescriptions: No Action omeprazole 20 MG capsule 20 mg PO DAILY Patient Comments: acid reflux albuterol sulfate [Ventolin HFA] 1 INHALER inhaler 1 puff inhalation Q4H PRN PRN (Reason: Sob &/Or Wheezing) Patient Comments: breathing triamterene-hydrochlorothiazid 1 CAP capsule 1 cap PO DAILY Qty: 0 0RF Patient Comments: blood pressure lisinopril 10 MG tablet 10 mg PO DAILY Qty: 0 0RF Patient Comments: blood pressure polyethylene glycol 3350 [Miralax] 17 gram Powder In Packet 17 g PO DAILY duloxetine 60 mg capsule,delayed release(DR/EC) 60 mg PO DAILY trazodone 100 mg tablet 100 mg PO QHS lubiprostone 8 mcg capsule 8 mcg PO BID sennosides [senna] 8.6 mg Tablet 8.6 mg PO BID 30 Days Qty: 60 0RF Rx Instructions: Hold for loose stools/diarrhea ondansetron HCl 4 mg tablet 4 mg PO Q8H PRN PRN (Reason: nausea and vomiting) 5 Days Qty: 20 0RF Primary Care Provider: Simone Posey Referrals: Simone Posey MD [Primary Care Provider] - Print Language: Guatemalan Disposition Disposition: Acute Care Hospital Discharge Location: [facility]
[2024-04-15] MEDS: Ondansetron 4 MG/2 ML Vial IV ×2 (17:28→23:50)
[2024-04-15] MEDS: Morphine 4 MG/ML Syringe IV (17:29)
[2024-04-15] MEDS: 0.9% Normal Saline (1000mL) 1,000 ML 999 ML IV (17:29)
[2024-04-15 17:43] LABS: Absolute Lymphocyte Count 1.83 X10^3/uL (0.83-4.51); Absolute Neutrophil Count 10.6 X10^3/uL (2.0-7.7); Basophil# 0.08 X10^3/uL; Basophil% 0.6 % (0-1); Eosinophil# 0.05 X10^3/uL; Eosinophils% 0.4 % (0-5); Hematocrit 46.8 % (37-47); Hemoglobin 15.7 g/dL (12.0-15.0); Lymphocyte # 1.83 X10^3/ul (0.83-4.51); Lymphocyte % 13.7 % (19-41); Mean Corp Hgb Conc 33.5 g/dL (32-36); Mean Corpuscular Hgb 30.4 pg (27.0-32.0); Mean Corpuscular Volume 90.7 fL (81-99); Mean Platelet Vol. 9.6 fl (6.2-12.0); Monocyte# 0.74 X10^3/uL; Monocyte% 5.5 % (0-10); NRBC Flagged by Analyzer 0 % (0-5); Neutrophil # 10.63 X10^3/uL (2.7-7.7); Neutrophil % 79.4 % (47-70); Platelet Count 403 K/mm3 (150-450); RBC Distribution Width CV 12.3 % (11.6-14.6); RBC Distribution Width SD 40.7 fl (35.1-43.9); Red Blood Count 5.16 M/mm3 (4.2-5.4); White Blood Count 13.4 K/mm3 (4.4-11.0)
[2024-04-15 17:53] LABS: ALB/GLOB Ratio 0.9 RATIO (0.9-2.4); AST(SGOT) 27 U/L (15-37); Alanine Aminotransfer ALT/SGPT 52 U/L (13-56); Albumin, Serum 4.2 g/dL (3.2-5.0); Alkaline Phosphatase 63 U/L (45-117); Anion Gap 13 (5-15); BUN 23 mg/dL (7-18); BUN/Creat Ratio 14.5 RATIO (10-20); Calcium,Total 10.7 mg/dL (8.5-10.1); Chloride 98 mmol/L (98-107); Creatinine, Serum 1.59 mg/dL (0.55-1.02); EST Glomerular Filtration Rate 35 mL/min (>60); Est Glom Filt Rate - Afr Amer 43 mL/min (>60); Estimated Creatinine Clearance 43.18 ml/min; Globulin 4.7 g/dL (2.2-4.2); Glucose 146 mg/dL (74-106); Lipase 65 U/L (13-75); Potassium 3.7 mmol/L (3.5-5.1); Protein, Total 8.9 g/dL (6.4-8.2); Sodium Level 132 mmol/L (136-145)
--- NOTE | 2024-04-15 18:28 | CT_ITS ---
STUDY: CT ABDOMEN AND PELVIS WITH CONTRAST REASON FOR EXAM: Female, 58 years old. Pain RADIATION DOSAGE (If Supplied By Facility): CTDIvol = ( 16.33 ) mGy, DLP = ( 1072.96 ) mGycm TECHNIQUE: Transaxial images were obtained from the dome of the diaphragm to the symphysis pubis without oral contrast. IV 100mL Isovue-370 was administered. Sagittal and coronal images were reconstructed. Individualized dose optimization techniques were used for this CT. COMPARISON: April 09, 2024 FINDINGS: Mild subsegmental atelectasis in right lower lobe. The visualized portions of the heart are within normal limits. Fatty infiltrated liver with focal fatty sparing in the medial segment of left lobe. No mass or bile duct dilatation. Gallbladder is not visualized status post cholecystectomy. Normal spleen. Normal pancreas. Normal bilateral adrenal glands. Small right renal cyst which will not require additional imaging. Normal left kidney. Normal visualized stomach. There are multiple mildly distended loops of fluid-filled distal small bowel and markedly distended fluid-filled colon which tapers at the level of the distal sigmoid colon without well-defined point of obstruction most likely representing severe ileus although partially obstructing distal colonic obstruction not excluded. Clinical correlation recommended . No evidence for acute appendicitis Atherosclerotic change of the aorta without evidence for aneurysm. Normal inferior vena cava. Normal retroperitoneum. Poorly distended prolapsed bladder. Uterus not visualized consistent with hysterectomy Normal abdominal wall. Lumbar spine demonstrates scoliosis and degenerative change. CT/Abdomen/Pelvis W IV Cont ONLY IMPRESSION: Possible partial obstructing distal colonic obstruction at the level of the sigmoid colon versus severe ileus. Clinical correlation is recommended Postop change status post hysterectomy and cholecystectomy Electronically Signed: Og Oscar MD at 19:20 EST ,
[2024-04-15 18:41] LABS: Color, Urine Yellow (Yellow); Glucose, Dipstick Normal (Normal); Ketone-Dipstick 50 mg/dl (Negative); Leukocyte Esterase-Dipstick 100 /ul (Negative); Mucous, Urine 0 SEEN /hpf (<or=2+); Nitrite-Dipstick Negative (Negative); Occult Blood-Urine 10 /ul (Negative); Protein-Dipstick 100 mg/dl (Negative); Red Blood Cells-Urine 0 SEEN /hpf (0-5); Urine Clarity Sl. Cloudy (Clear); Urine Urobilinogen 1 mg/dl (Normal)
[2024-04-15 18:45] LABS: Urine Bilirubin Dipstick 1 mg/dL (Negative)
[2024-04-15 18:47] LABS: Bacteria 3+ /hpf (None Seen); Hyaline Cast 0-5 SEEN /lpf (0-5); Squamous Epithelial Cells - UA 0-5 SEEN /hpf (5-10); White Blood Cells 5-10 SEEN /hpf (0-5)
[2024-04-15] MEDS: fentaNYL 100 MCG/2 ML Ampul 50 MCG IV ×2 (19:29→22:36)
[2024-04-16] VITALS (12 sets, daily range): BP systolic 109–123; BP diastolic 55–85; PULSE 77–90; RESP 11–19; TEMP 36.8; O2SAT 93–97
--- NOTE | 2024-04-16 00:29 | ED.RN ---
THIS SATELLITE TECHNICIAN CALLED [facility] TRANSFER LINE APPROX [id number]. PT ACCEPTED, WAIT BED.
[2024-04-16] MEDS: Ondansetron 4 MG/2 ML Vial IV ×2 (04:06→07:33)
--- NOTE | 2024-04-16 08:30 | ED.RN ---
ATTEMPTED TO CALL REPORT. CALL BACK NUMBER [email or web address]
[2024-04-16] MEDS: Morphine 4 MG/ML Syringe IV (08:49)
--- NOTE | 2024-04-16 08:52 | ED.RN ---
REPORT GIVEN TO FLOOR RN. PHYSICIANS SCHEDULED TO BE HERE ANY MINUTE FOR TRANSPORT
== END 2024-04-16 08:50 | disposition short-term general hospital (02) ==
PROVIDERS: Emergency Provider Emergency Medicine; PCP Family Medicine; Visit Provider Emergency Medicine
DX: K56.7 Ileus, unspecified (principal); R11.2 Nausea with vomiting, unspecified; I10 Essential (primary) hypertension; Z90.710 Acquired absence of both cervix and uterus; R10.9 Unspecified abdominal pain; Z90.49 Acquired absence of other specified parts of digestive tract; K21.9 Gastro-esophageal reflux disease without esophagitis; Z79.899 Other long term (current) drug therapy; F32.A Depression, unspecified
CPT/HCPCS: 74177; 80053; 81001; 83690; 85025; 96361; 96374; 96375; 96376; 99283; J7030; Q9967; A4216; J2405